=== PATIENT | female | born 1965 | race African-American/Black ===

== ENCOUNTER 2016-03-17 18:06 | Inpatient (IN) ==
--- NOTE | 2016-03-17 18:27 | EKG Report ---
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
[2016-03-17] MEDS ORDERED: hydrALAZINE 20 MG/1 ML VIAL IV STA (18:35)
[2016-03-17] MEDS ORDERED: hydrALAZINE 20 MG/1 ML VIAL ONE (18:37)
[2016-03-17 18:48] LABS: Basophils % 0.3 % (0.0-0.8); Eosinophils # 0.3 10*3/uL (0.0-0.87); Hematocrit 25.6 VOL% (35.7-47.0); Hemoglobin 7.8 GM/DL (12.0-16.0); Immature Granulocytes % 0.2 %; Immature Granulocytes Absolute 0.02 #; Lymphocytes # 1.3 10*3/uL (1.4-4.0); Lymphocytes % 14.8 % (21.3-54.2); Mean Corpuscular HGB Conc 30.5 GM/DL (32-36); Mean Corpuscular Hemoglobin 24 PG (27-34); Mean Platelet Volume 9.6 FL (9.6-12.0); Monocytes # 0.4 10*3/uL (0.11-0.8); Monocytes % 4.9 % (1.7-12.7); Neutrophils # 6.7 10*3/uL (1.4-7.4); Neutrophils % 76.8 % (38.7-73.9); Platelet Count 324 T/CUMM (130-400); White Blood Count 8.7 T/CUMM (4-12)
--- NOTE | 2016-03-17 18:56 | Emergency Department Note ---
I, Keila Barker, am scribing for, and in the presence of, Jenise Brown DO 18: 44. I, Jenise Brown DO, personally performed the services described in this documentation, ascribed by Keila Barker in my presence, and it is both accurate and complete [id number] . Arrival - Arrival Chief Complaint: Shortness of Breath Stated Complaint: SOB ED Nursing Triage Note: C/o productive cough, wheezing, shortness of breath- onset yesterday. Reports that she got some relief after taking an Albuterol neb. Reports chest "soreness". Mode of Arrival: Wheelchair Limitations: No Limitations Source: Patient Time Seen by Provider: 03/17/16 18:28 - History of Present Illness HPI Narrative: Pt is a 51 y/o female that came to the ED with c/o SOB that began a few weeks ago but has worsened today. Pt has associated sxs of abdominal tightness, cough with yellow mucus, and chest soreness but denies abdominal pain, fever, or chills. Pt reports she has asthma and feels like she's having an "asthma attack. " Pt states she does have albuterol treatments at home and she took one but felt no relief. She states she slept with her oxygen on last night to help but also no relief due to her sleep apnea. Pt has a PMHx of HTN and states she takes her medication but a PMHx of CHF is unknown. No other complaints/pain in ED. Onset (ago): week(s) Consistency: constant Severity: mild Severity scale (1-10): 2 Quality: other Date of Last Menstrual Period: hysterectomy Allergies/Adverse Reactions: Allergies Allergy/AdvReac Type Severity Reaction Status Date / Time Amoxicillin Allergy RASH Verified 08/20/15 18:34 ciprofloxacin [From Cipro] Allergy RASH Verified 08/20/15 18:34 Home Medications: Home Medications Medication Instructions Recorded Confirmed Type Pantoprazole Tab [Protonix Tab] 40 mg PO DAILY #14 tablet 08/07/14 03/17/16 Rx Levothyroxine Tab [Synthroid Tab] 75 mcg PO DAILY@0700 #30 tablet 08/19/1403/17 Rx Albuterol Sulfate [Ventolin HFA] 2 puff INH Q6H PRN 11/10/14 03/17/16 History Atorvastatin [Lipitor] 40 mg PO DAILY 08/20/15 03/17/16 History Furosemide Tab [Lasix Tab] 80 mg PO DAILY 08/20/15 03/17/16 History Insulin Glargine,Hum.rec.anlog 80 unit SUBCUT BEDTIME 08/20/15 03/17/16 History [Amina Lara] Potassium Chloride 8 meq PO DAILY 08/20/15 03/17/16 History Doxazosin Mesylate 1 mg PO BEDTIME 02/02/16 03/17/16 History Gabapentin [Gabapentin] 300 mg PO TID 02/02/16 03/17/16 History Insulin Aspart [NovoLOG FlexPen] 14 units SUBCUT TID W/MEALS 02/02/16 03/17/16 History Tramadol HCl [Tramadol Tab] 50 mg PO BID 02/02/16 03/17/16 History clonazePAM [Clonazepam] 0.5 mg PO BID 02/02/16 03/17/16 History hydrALAZINE TAB [Apresoline Tab] 100 mg PO TID #90 tablet 02/02/16 03/17/16 Rx Albuterol Sulfate [Albuterol Neb] 2.5 mg RESP TX TID 03/17/16 03/17/16 History Isosorbide Dinitrate 30 mg PO TID 03/17/16 03/17/16 History Nebivolol HCl [Bystolic] 20 mg PO DAILY 03/17/16 03/17/16 History Saxagliptin HCl [Onglyza] 2.5 mg PO DAILY 03/17/16 03/17/16 History cloNIDine TAB [Catapres Tab] 0.3 mg PO TID 03/17/16 03/17/16 History Review of System - Review of System 12 point system: reviewed and no additional remarkable complaints except as stated - Review of System Constitutional: Absent: chills, fever Respiratory: Present: cough (cough with yellow mucus), other (SOB) Cardiovascular: Present: other (chest soreness). Absent: chest pain Gastrointestinal: Present: other (abdominal tightness). Absent: abdominal pain Musculoskeletal: Absent: arm pain, back pain, leg pain, neck pain Skin: Absent: rash Neurological: Absent: headache Medical,Surgical,& Family Hx - Medical History Cardio: History of: CHF (with history of preserved ejection fraction), Hypertension Psychological: History of: Anxiety Disorders, Depression Neurology: No history of: Seizures Endocrine: History of: Diabetes Mellitus (IDDM), Dyslipidemia, Thyroid Disorder Respiratory: History of: Asthma, Bronchitis, Obstructive Sleep Apnea (wears cpap at home) Renal: History of: Renal Failure Genitourinary: History of: Recurring Urinary Tract Infections Gastrointestinal: History of: GERD Musculoskeletal: History of: Back/Neck Problems (arthitis), Degenerative Disk Disease Hematology: History of: Anemia - Surgical History Thoracic Surgeries: Patient denies;: Organ Transplant Abdominal Surgeries: Surgical HX of: EGD Patient denies: Colonoscopy Reproductive Surgeries: Surgical HX of;: Gynecologic Surgery, Hysterectomy, Tubal Ligation - Family History Family History: Reports;: Family Cancer (grandmother), Family Diabetes, Family Hypertension (mother, brother) - Social History Smoking Status: Former smoker Frequency of Alcohol Use: None Type of Drug Use: None Exam Vital Signs: Vital Signs Temperature 98.1 F 03/17/16 18:10 Pulse Rate 69 03/17/16 18:30 Respiratory Rate 20 03/17/16 18:30 Blood Pressure 228/96 03/17/16 18:30 O2 Sat by Pulse Oximetry 100 03/17/16 18:30 - General General appearance: alert, in no apparent distress, other (not able to get much air through; edentulist) - Head Head exam: Present: atraumatic, normocephalic - Eye Eye exam: Present: PERRL, EOMI - ENT ENT exam: Present: mucous membranes moist, other (erythematous throat with clear drainage). Absent: mucous membranes dry - Neck Neck exam: Present: full ROM. Absent: tenderness - Chest Chest inspection: Present: symmetric chest wall rise. Absent: tenderness - Respiratory Respiratory exam: Present: normal lung sounds bilaterally. Absent: respiratory distress - Cardiovascular Cardiovascular exam: Present: regular rate, normal rhythm, normal heart sounds - Abdominal Exam Abdominal exam: Present: soft, other (taunt abdomen). Absent: tenderness - Extremities Exam Extremities exam: Present: full ROM, pedal edema (+1 pedal edema). Absent: tenderness - Back Exam Back exam: Present: full ROM. Absent: tenderness - Neurological Exam Neurological exam: Present: alert, oriented X3, CN II-XII intact. Absent: motor sensory deficit - Psychiatric Psychiatric exam: Present: normal affect, normal mood - Skin Skin exam: Present: warm, dry Results - Labs CBC & BMP: 03/17/16 18:27 03/17/16 18:27 Lab Results: I have reviewed the patients labs Labs: Laboratory Tests 03/17/16 18:27 RBC 3.20 L Hgb 7.8 L Hct 25.6 L MCV 80.0 L MCH 24 L MCHC 30.5 L Neut % (Auto) 76.8 H Lymph % (Auto) 14.8 L Lymph # (Auto) 1.3 L Laboratory Tests 03/17/16 18:27 Sodium 148 H Chloride 112 H Anion Gap 16.5 H BUN 63 H Creatinine 4.50 H Glucose 115 H Calculated Osmolality 312.3 H Calcium 7.8 L Total Creatine Kinase 328 H Globulin 4.0 H Albumin/Globulin Ratio 0.8 L - Diagnostic Findings Procedure: Chest x-ray: report reviewed by me (Progressive cardiomegaly with [id number] CHF with small pleural effusions.)
--- NOTE | 2016-03-17 19:00 | XRay Report ---
Portable chest Date:[03/17/2016] Clinical history: Shortness of breath Comparison: 03/22/2015 Technique: Portable AP sitting chest Findings: The heart is larger in size with more prominent pulmonary vasculature. Progressive diffuse parenchymal findings with small pleural effusions. No acute osseous findings. Impression: Progressive cardiomegaly with [id number] CHF with small pleural effusions. PROCEDURE INTERPRETED AT [facility] DEPARTMENT OF RADIOLOGY Final Report Signed by: Dr. Rosa Isela Zabala
[2016-03-17 19:16] LABS: Alanine Aminotransferase 20 U/L (13-56); Albumin 3.4 G/DL (3.4-5.0); Alkaline Phosphatase 74 U/L (45-117); Aspartate Amino Transferase 13 U/L (0-37); Bilirubin,Total < 0.39 MG/DL (0.2-1.0); Blood Urea Nitrogen 63 MG/DL (7-18); Calcium 7.8 MG/DL (8.5-10.1); Glucose 115 MG/DL (74-106); Osmolality,Calculated 312.3 MOS/KG (273-304); Potassium 4.5 MMOL/L (3.5-5.1); Sodium 148 MMOL/L (136-145); Total Protein 7.4 G/DL (6.4-8.3); Troponin I Only < 0.015 NG/ML (0.00-0.045)
[2016-03-17] MEDS ORDERED: FUROSEMIDE 40 MG/4 ML VIAL IV STA (19:39)
[2016-03-17] MEDS ORDERED: FUROSEMIDE 40 MG/4 ML VIAL ONE (19:41)
[2016-03-17] MEDS ORDERED: ONDANSETRON 4 MG/2 ML VIAL ONE (19:49)
[2016-03-17] MEDS ORDERED: ONDANSETRON 4 MG/2 ML VIAL IV STA (19:57)
[2016-03-17] MEDS ORDERED: clonazePAM 0.5 MG TABLET PO PRN (20:44)
[2016-03-17] MEDS ORDERED: traMADol 50 MG TABLET PO PRN (20:44)
[2016-03-17] MEDS ORDERED: ALBUTEROL/IPRATROPIUM 3 ML NEB RESP TX PRN (20:48)
[2016-03-17] MEDS ORDERED: ONDANSETRON 4 MG/2 ML VIAL IV PRN (20:49)
[2016-03-17] MEDS ORDERED: MORPHINE 2 MG/1 ML SYRINGE IV PRN (20:49)
[2016-03-17] MEDS ORDERED: DEXTROSE 50% 25 GM/50 ML VIAL IV PRN (20:49)
[2016-03-17] MEDS ORDERED: ACETAMINOPHEN 325 MG TABLET PO PRN (20:49)
[2016-03-17] MEDS ORDERED: BISACODYL 5 MG TABLET PO PRN (20:49)
[2016-03-17] MEDS ORDERED: GLUCAGON 1 MG VIAL IM PRN (20:49)
[2016-03-17] MEDS ORDERED: SODIUM CHLORIDE 0.9% 250 ML IV PRN (20:52)
--- NOTE | 2016-03-17 20:59 | Hospitalist History & Physical ---
Assessment and Plan (1) Hypertensive urgency Status: Acute Current Visit: Yes (2) Acute on chronic diastolic CHF (congestive heart failure) Status: Acute Current Visit: Yes (3) Anemia in chronic kidney disease Status: Acute Current Visit: Yes (4) Insulin dependent diabetes mellitus Status: Acute Current Visit: Yes (5) Pulmonary edema Status: Acute Current Visit: Yes (6) Acute worsening of stage 3 chronic kidney disease Status: Acute Current Visit: Yes (7) Obstructive sleep apnea on CPAP Status: Acute Assessment and plan: Plan: 03/17: Blood pressure control and diuresis Transfuse 2 units packed red blood cells, diuresis between units DuoNeb's, supplemental oxygen, CPAP at bedtime Cardiac enzymes negative, no acute ischemic EKG changes Consult nephrology in a.m. Continue Lantus, mealtime insulin and sliding scale. Repeat chest x-ray in a.m. Current Visit: Yes History of Present Illness Chief complaint: worsening shortness of breath since yesterday History of present illness: Ms. Mejia is a 51 year old female with obesity, insulin-dependent diabetes, chronic diastolic CHF, uncontrolled hypertension, chronic kidney disease stage III, obstructive sleep apnea. She is here with shortness of breath that became worse yesterday morning has progressively worsened today prompting her to come the emergency room. She denies chest pain. She reports occasional cough. No hemoptysis. Blood pressure was approximately 220/110 presentation to the emergency room. She will denies noncompliance with her medications. She is also found to be anemic, however denies any melena or hematochezia or hematemesis. At the bedside she becomes easily short of breath with minimal movement however she is not wearing her oxygen but sats are in the mid 90s. She 's noticed increased peripheral edema despite taking her oral diuretic. She is followed by Dr. Alexander, her lens engraver whom she states she saw within the last "couple of weeks." Home Medications Medication Instructions Recorded Confirmed Type Pantoprazole Tab [Protonix Tab] 40 mg PO DAILY #14 tablet 08/07/14 03/17/16 Rx Levothyroxine Tab [Synthroid Tab] 75 mcg PO DAILY@0700 #30 tablet 08/19/1403/17 Rx Albuterol Sulfate [Ventolin HFA] 2 puff INH Q6H PRN 11/10/14 03/17/16 History Atorvastatin [Lipitor] 40 mg PO DAILY 08/20/15 03/17/16 History Furosemide Tab [Lasix Tab] 80 mg PO DAILY 08/20/15 03/17/16 History Insulin Glargine,Hum.rec.anlog 80 unit SUBCUT BEDTIME 08/20/15 03/17/16 History [Tousavage SoloStar] Potassium Chloride 8 meq PO DAILY 08/20/15 03/17/16 History Doxazosin Mesylate 1 mg PO BEDTIME 02/02/16 03/17/16 History Gabapentin [Gabapentin] 300 mg PO TID 02/02/16 03/17/16 History Insulin Aspart [NovoLOG FlexPen] 14 units SUBCUT TID W/MEALS 02/02/16 03/17/16 History Tramadol HCl [Tramadol Tab] 50 mg PO BID 02/02/16 03/17/16 History clonazePAM [Clonazepam] 0.5 mg PO BID 02/02/16 03/17/16 History hydrALAZINE TAB [Apresoline Tab] 100 mg PO TID #90 tablet 02/02/16 03/17/16 Rx Albuterol Sulfate [Albuterol Neb] 2.5 mg RESP TX TID 03/17/16 03/17/16 History Isosorbide Dinitrate 30 mg PO TID 03/17/16 03/17/16 History Nebivolol HCl [Bystolic] 20 mg PO DAILY 03/17/16 03/17/16 History Saxagliptin HCl [Onglyza] 2.5 mg PO DAILY 03/17/16 03/17/16 History cloNIDine TAB [Catapres Tab] 0.3 mg PO TID 03/17/16 03/17/16 History Allergies Allergy/AdvReac Type Severity Reaction Status Date / Time Amoxicillin Allergy RASH Verified 08/20/15 18:34 ciprofloxacin [From Cipro] Allergy RASH Verified 08/20/15 18:34 Medical,Surgical,& Family Hx - Medical History Cardio: History of: CHF (with history of preserved ejection fraction), Hypertension Psychological: History of: Anxiety Disorders, Depression Neurology: No history of: Seizures Endocrine: History of: Diabetes Mellitus (IDDM), Dyslipidemia, Thyroid Disorder Respiratory: History of: Asthma, Bronchitis, Obstructive Sleep Apnea (wears cpap at home) Renal: History of: Renal Failure Genitourinary: History of: Recurring Urinary Tract Infections Gastrointestinal: History of: GERD Musculoskeletal: History of: Back/Neck Problems (arthitis), Degenerative Disk Disease Hematology: History of: Anemia - Surgical History Thoracic Surgeries: Patient denies;: Organ Transplant Abdominal Surgeries: Surgical HX of: EGD Patient denies: Colonoscopy Reproductive Surgeries: Surgical HX of;: Gynecologic Surgery, Hysterectomy, Tubal Ligation - Family History Family History: Reports;: Family Cancer (grandmother), Family Diabetes, Family Hypertension (mother, brother) - Social History Smoking Status: Former smoker Frequency of Alcohol Use: None Type of Drug Use: None Marital Status: Unknown Functional capacity: independent ambulation Review of systems: A 12 point review of systems is negative except as specified in the HPI Exam - Constitutional Vitals: Period Temp Pulse Resp BP Sys/Loving Pulse Ox Last 24 Hr 98.1 F-98.1 F 67-70 20-20 194-228/73-102 96-100 Exam: EXAM: CONSTITUTIONAL: Obese, non toxic, NAD HEENT: NC, AT, OP benign, [place], EOMI CV: RRR no m/g/r RESP: Coarse bilaterally with scattered rales GI: abd soft, NT, ND, +bowel sounds INTEGUMENTARY: no lesions or rash EXTREMITIES: 2+ pitting edema bilateral lower extremities NEURO: no focal deficits PSYCH: Awake and alert Results - Labs CBC & BMP: 03/17/16 18:27 03/17/16 18:27 Lab Results: I have reviewed the past 24 hour labs - EKG EKG shows: sinus rhythm - Diagnostic Findings Procedure: Chest x-ray: image reviewed by me, report reviewed by me Quality Measures - VTE Contraindication to Pharmacological VTE Prophylaxis: High Risk of Bleeding
[2016-03-17] MEDS ORDERED: FUROSEMIDE 40 MG/4 ML VIAL IV ONE (21:00)
[2016-03-17] MEDS: ISOSORBIDE DINITRATE 20 MG TABLET PO SCH (23:00)
[2016-03-17] MEDS: GABAPENTIN 300 MG CAPSULE PO SCH (23:00)
[2016-03-17] MEDS: DOXAZOSIN 1 MG TABLET PO SCH (23:01)
[2016-03-17] MEDS: INSULIN GLARGINE 100 UNIT/ML SUBCUT SCH (23:02)
[2016-03-18] MEDS ORDERED: FUROSEMIDE 40 MG/4 ML VIAL IV ONE (03:30)
[2016-03-18 08:19] LABS: Basophils # 0.1 10*3/uL (0.0-0.2); Basophils % 0.6 % (0.0-0.8); Eosinophils # 0.2 10*3/uL (0.0-0.87); Eosinophils % 2.1 % (0.00-10.9); Hematocrit 30.5 VOL% (35.7-47.0); Hemoglobin 9.2 GM/DL (12.0-16.0); Immature Granulocytes % 0.4 %; Immature Granulocytes Absolute 0.03 #; Lymphocytes # 0.8 10*3/uL (1.4-4.0); Lymphocytes % 9.6 % (21.3-54.2); Mean Corpuscular HGB Conc 30.2 GM/DL (32-36); Mean Corpuscular Hemoglobin 25 PG (27-34); Mean Corpuscular Volume 82.9 FL (87-102); Mean Platelet Volume 9.2 FL (9.6-12.0); Monocytes # 0.5 10*3/uL (0.11-0.8); Monocytes % 6.1 % (1.7-12.7); Neutrophils # 6.5 10*3/uL (1.4-7.4); Neutrophils % 81.2 % (38.7-73.9); Platelet Count 291 T/CUMM (130-400); Red Blood Count 3.68 MC/CUMM (3.8-5.5); Red Cell Distribution Width 16.3 % (9.3-17.3)
--- NOTE | 2016-03-18 09:28 | XRay Report ---
Portable chest Date:[03/18/2016] Clinical history: Shortness of breath Comparison: 03/17/2016 Technique: Portable AP sitting chest Findings: The heart is minimally enlarged with less prominent pulmonary vasculature. Decreased parenchymal findings with minimally smaller pleural effusions. Stable mediastinum and osseous structures. Impression: Improved CHF/bilateral pneumonia with smaller pleural effusions. PROCEDURE INTERPRETED AT [facility] DEPARTMENT OF RADIOLOGY Final Report Signed by: Dr. Rosa Isela Zabala
[2016-03-18] MEDS: FUROSEMIDE 40 MG/4 ML VIAL IV SCH (09:32)
[2016-03-18 09:33] LABS: Calcium 8.2 MG/DL (8.5-10.1); Osmolality,Calculated 313.3 MOS/KG (273-304); Potassium 4.8 MMOL/L (3.5-5.1)
[2016-03-18] MEDS: INSULIN REGULAR 100 UNIT/ML SUBCUT SCH ×5 (09:37→21:51)
[2016-03-18] MEDS: PANTOPRAZOLE 40 MG TABLET PO SCH (09:38)
[2016-03-18] MEDS: NEBIVOLOL 10 MG TABLET PO SCH (09:39)
[2016-03-18] MEDS: ISOSORBIDE DINITRATE 20 MG TABLET PO SCH ×3 (09:40→21:52)
[2016-03-18] MEDS: LEVOTHYROXINE 75 MCG TABLET PO SCH (09:40)
[2016-03-18] MEDS: ATORVASTATIN 40 MG TABLET PO SCH (09:43)
[2016-03-18] MEDS: GABAPENTIN 300 MG CAPSULE PO SCH ×3 (09:45→21:52)
--- NOTE | 2016-03-18 10:38 | Nephrology Consult Note ---
History of Present Illness Chief complaint: chronic renal failure History of present illness: Ms. Mejia is a 51 year old female with chronic renal failure secondary to diabetes. She was admitted with uncontrolled hypertension and shortness of breath. She has received diuretics and her breathing has improved. She is now comfortable on room air. Blood pressure is markedly improved as well. Home Medications Medication Instructions Recorded Confirmed Type Pantoprazole Tab [Protonix Tab] 40 mg PO DAILY #14 tablet 08/07/14 03/17/16 Rx Levothyroxine Tab [Synthroid Tab] 75 mcg PO DAILY@0700 #30 tablet 08/19/1403/17 Rx Albuterol Sulfate [Ventolin HFA] 2 puff INH Q6H PRN 11/10/14 03/17/16 History Atorvastatin [Lipitor] 40 mg PO DAILY 08/20/15 03/17/16 History Furosemide Tab [Lasix Tab] 80 mg PO DAILY 08/20/15 03/17/16 History Insulin Glargine,Hum.rec.anlog 80 unit SUBCUT BEDTIME 08/20/15 03/17/16 History [Tousavage SoloStar] Potassium Chloride 8 meq PO DAILY 08/20/15 03/17/16 History Doxazosin Mesylate 1 mg PO BEDTIME 02/02/16 03/17/16 History Gabapentin [Gabapentin] 300 mg PO TID 02/02/16 03/17/16 History Insulin Aspart [NovoLOG FlexPen] 10 units SUBCUT TID W/MEALS 02/02/16 03/17/16 History Tramadol HCl [Tramadol Tab] 50 mg PO BID 02/02/16 03/17/16 History clonazePAM [Clonazepam] 0.5 mg PO BID 02/02/16 03/17/16 History hydrALAZINE TAB [Apresoline Tab] 100 mg PO TID #90 tablet 02/02/16 03/17/16 Rx Albuterol Sulfate [Albuterol Neb] 2.5 mg RESP TX TID 03/17/16 03/17/16 History Isosorbide Dinitrate 30 mg PO TID 03/17/16 03/17/16 History Nebivolol HCl [Bystolic] 20 mg PO DAILY 03/17/16 03/17/16 History Saxagliptin HCl [Onglyza] 2.5 mg PO DAILY 03/17/16 03/17/16 History cloNIDine TAB [Catapres Tab] 0.3 mg PO TID 03/17/16 03/17/16 History Allergies Allergy/AdvReac Type Severity Reaction Status Date / Time Amoxicillin Allergy RASH Verified 08/20/15 18:34 ciprofloxacin [From Cipro] Allergy RASH Verified 08/20/15 18:34 Medical,Surgical,& Family Hx - Medical History Cardio: History of: CHF (with history of preserved ejection fraction), Hypertension Psychological: History of: Anxiety Disorders, Depression Neurology: No history of: Seizures Endocrine: History of: Diabetes Mellitus (IDDM), Dyslipidemia, Thyroid Disorder Respiratory: History of: Asthma, Bronchitis, Obstructive Sleep Apnea (wears cpap at home) Renal: History of: Renal Failure Genitourinary: History of: Recurring Urinary Tract Infections Gastrointestinal: History of: GERD Musculoskeletal: History of: Back/Neck Problems (arthitis), Degenerative Disk Disease Hematology: History of: Anemia - Surgical History Thoracic Surgeries: Patient denies;: Organ Transplant Abdominal Surgeries: Surgical HX of: EGD Patient denies: Colonoscopy Reproductive Surgeries: Surgical HX of;: Gynecologic Surgery, Hysterectomy, Tubal Ligation - Family History Family History: Reports;: Family Cancer (grandmother), Family Diabetes, Family Hypertension (mother, brother) - Social History Smoking Status: Former smoker Frequency of Alcohol Use: None Type of Drug Use: None Review of Systems 12 point system: reviewed and no additional remarkable complaints except as stated Exam - Vital Signs Vital signs: Period Temp Pulse Resp BP Sys/Loving Pulse Ox Last 24 Hr 97.1 F-98.5 F 63-70 20-20 136-165/53-77 65-100 Exam: Gen.: Alert and oriented x3. ENT: Pupils equal round reactive to light. EOMs intact. Mucous membranes moist. Neck: Supple. No JVD or bruit. Cardiovascular: Regular rate and rhythm. No murmur rub or gallop Lungs: Clear Abdomen: Soft. Nontender. Positive bowel sounds. No organomegaly Extremities: 1+ edema Results - Labs CBC & BMP: 03/18/16 08:10 03/18/16 08:10 Assessment and Plan (1) Chronic kidney disease, stage IV (severe) Status: Acute Assessment and plan: 51-year-old woman admitted with: * Chronic renal failure stage IV. Creatinine 3.9 in August 2015. Likely worsened by severe hypertension * Hypertension. Blood pressure is now controlled. Suspect noncompliance with medications * Diabetes mellitus * CHF. Improved Current Visit: Yes (2) Acute on chronic diastolic CHF (congestive heart failure) Status: Acute Current Visit: Yes (3) Insulin dependent diabetes mellitus Status: Acute Current Visit: Yes (4) Obstructive sleep apnea on CPAP Status: Acute Current Visit: Yes (5) Pulmonary edema Status: Acute Current Visit: Yes (6) hypertension Status: Acute Current Visit: No
--- NOTE | 2016-03-18 15:52 | Hospitalist Progress Note ---
Assessment and Plan (1) Hypertensive urgency Status: Resolved Current Visit: Yes (2) Acute on chronic diastolic CHF (congestive heart failure) Status: Acute Current Visit: Yes (3) Anemia in chronic kidney disease Status: Acute Current Visit: Yes (4) Insulin dependent diabetes mellitus Status: Acute Current Visit: Yes (5) Pulmonary edema Status: Acute Current Visit: Yes (6) Acute worsening of stage 4 chronic kidney disease Status: Acute Current Visit: Yes (7) Obstructive sleep apnea on CPAP Status: Acute Assessment and plan: Plan: 03/17: Blood pressure control and diuresis Transfuse 2 units packed red blood cells, diuresis between units DuoNeb's, supplemental oxygen, CPAP at bedtime Cardiac enzymes negative, no acute ischemic EKG changes Consult nephrology in a.m. Continue Lantus, mealtime insulin and sliding scale. Repeat chest x-ray in a.m. 03/18: Blood pressure is better controlled. Blood counts with appropriate rise status post 2 units packed red cell transfusion. Nephrology following, diabetic medications have been adjusted. Otherwise supportive care. If renal function improves and blood counts remain stable and consider discharging the next 24-48 hours. Current Visit: Yes Hospitalist: Subjective Interval history: Ms. Mejia has no acute complaints. She reports much improved shortness of breath. No oxygen requirement. She insists that she's been taking her blood pressure medication as prescribed. Regarding her blood pressure all we really have done is continued her home medications, which seems to be controlling her blood pressure quite well. This does make the doubt compliance. She has no complaints at this time. Exam - Constitutional Vitals: Period Temp Pulse Resp BP Sys/Loving Pulse Ox Last 24 Hr 97.1 F-98.5 F 63-70 20-20 136-165/53-77 65-100 Exam: EXAM: CONSTITUTIONAL: Obese, non toxic, NAD HEENT: NC, AT, OP benign, [place], EOMI CV: RRR no m/g/r RESP: Coarse bilaterally with bibasilar rales GI: abd soft, NT, ND, +bowel sounds INTEGUMENTARY: no lesions or rash EXTREMITIES: Trace edema of the lower extremities NEURO: no focal deficits PSYCH: Awake and alert Results - Labs CBC & BMP: 03/18/16 08:10 03/18/16 08:10 Lab Results: I have reviewed the past 24 hour labs - Diagnostic Findings Procedure: Chest x-ray: image reviewed by me, report reviewed by me Quality Measures - VTE Contraindication to Pharmacological VTE Prophylaxis: High Risk of Bleeding
[2016-03-18] MEDS ORDERED: clonazePAM 0.5 MG TABLET PO PRN (15:53)
[2016-03-18] MEDS: POLYETHYLENE GLYCOL POWDER 17 GM PACK PO SCH (17:38)
[2016-03-18] MEDS: DOXAZOSIN 1 MG TABLET PO SCH (21:52)
[2016-03-18] MEDS: INSULIN GLARGINE 100 UNIT/ML SUBCUT SCH (21:54)
[2016-03-19 06:40] LABS: Basophils % 0.5 % (0.0-0.8); Eosinophils # 0.2 10*3/uL (0.0-0.87); Eosinophils % 2.7 % (0.00-10.9); Hemoglobin 8.8 GM/DL (12.0-16.0); Immature Granulocytes % 0.4 %; Immature Granulocytes Absolute 0.03 #; Lymphocytes % 12.7 % (21.3-54.2); Mean Corpuscular HGB Conc 31.4 GM/DL (32-36); Mean Corpuscular Hemoglobin 25 PG (27-34); Mean Corpuscular Volume 80.9 FL (87-102); Monocytes # 0.6 10*3/uL (0.11-0.8); Monocytes % 7.7 % (1.7-12.7); Neutrophils # 5.9 10*3/uL (1.4-7.4); Platelet Count 299 T/CUMM (130-400); Red Blood Count 3.46 MC/CUMM (3.8-5.5); Red Cell Distribution Width 16.3 % (9.3-17.3); White Blood Count 7.8 T/CUMM (4-12)
[2016-03-19 07:04] LABS: Calcium 7.7 MG/DL (8.5-10.1); Osmolality,Calculated 311.8 MOS/KG (273-304); Potassium 4.9 MMOL/L (3.5-5.1)
[2016-03-19] MEDS: ATORVASTATIN 40 MG TABLET PO SCH (08:49)
[2016-03-19] MEDS: POLYETHYLENE GLYCOL POWDER 17 GM PACK PO SCH (08:49)
[2016-03-19] MEDS: LEVOTHYROXINE 75 MCG TABLET PO SCH (08:49)
[2016-03-19] MEDS: NEBIVOLOL 10 MG TABLET PO SCH (08:50)
[2016-03-19] MEDS: PANTOPRAZOLE 40 MG TABLET PO SCH (08:50)
[2016-03-19] MEDS: GABAPENTIN 300 MG CAPSULE PO SCH (08:50)
[2016-03-19] MEDS: INSULIN REGULAR 100 UNIT/ML SUBCUT SCH ×2 (08:50→11:33)
[2016-03-19] MEDS: ISOSORBIDE DINITRATE 20 MG TABLET PO SCH (08:50)
[2016-03-19] MEDS: FUROSEMIDE 40 MG/4 ML VIAL IV SCH (08:51)
[2016-03-19] MEDS ORDERED: sitaGLIPtin 25 MG TABLET PO SCH (09:00)
[2016-03-19] MEDS: INSULIN LISPRO 100 UNIT/ML SUBCUT SCH ×2 (09:32→09:33)
[2016-03-19 13:27] VITALS: BP 148/68
--- NOTE | 2016-03-19 14:59 | Discharge Summary ---
Hospital Course - Hospital Course Hospital Course: Ms. Mejia was admitted with hypertensive urgency, acute on chronic diastolic CHF with pulmonary edema. I suspect she was not compliant with her blood pressure medications, the reason being recently restarted her home meds with excellent result. She responded well to IV diuresis, is now back on her oral Lasix. Additionally she was transfused 2 units packed red blood cells, no evidence of GI/ bleeding. Her blood counts responded appropriately. There' ve been stable since transfusion. I recommended that she follow-up with her primary care provider and/or adjunct philosophy faculty to recheck a basic chemistry to ensure continued stability of her chronic kidney disease stage IV. I explained that nonadherence to blood pressure medications and diabetic medications lead to worsening of kidney function. She acknowledged her understanding. She is eager to go home, she states she has a sufficient supply of all of her medications and will be discharged today. - Time spent with patient Time with patient DS: Greater than 30 minutes Diagnosis - Discharge Diagnosis (1) Hypertensive urgency Status: Resolved (2) Acute on chronic diastolic CHF (congestive heart failure) Status: Resolved (3) Anemia in chronic kidney disease Status: Acute (4) Insulin dependent diabetes mellitus Status: Acute (5) Pulmonary edema Status: Acute (6) Acute worsening of stage 4 chronic kidney disease Status: Acute (7) Obstructive sleep apnea on CPAP Status: Acute Specialty Discharge - Follow Up or Referrals - Speciality Discharge Instructions Hospitalist Instructions: Follow-up with PCP, adjunct philosophy faculty within the week for repeat chemistry to ensure renal function is stable, also blood pressure is acceptable. Discharge Plan - Discharge Data Disposition: Disch To Home/Self Care Condition at Discharge: Stable - Discharge Medications New clonazePAM TAB [KlonoPIN] 0.25 mg PO BID PRN #0 tablet PRN Reason: Anxiety Continue Pantoprazole Tab [Protonix Tab] 40 mg PO DAILY #14 tablet Levothyroxine Tab [Synthroid Tab] 75 mcg PO DAILY@0700 #30 tablet Albuterol Sulfate [Ventolin HFA] 2 puff INH Q6H PRN PRN Reason: Shortness Of Breath/Wheezing Atorvastatin [Lipitor] 40 mg PO DAILY Potassium Chloride 8 meq PO DAILY Furosemide Tab [Lasix Tab] 80 mg PO DAILY Insulin Glargine,Hum.rec.anlog [Amina Lara] 80 unit SUBCUT BEDTIME Isosorbide Dinitrate 30 mg PO TID Nebivolol HCl [Bystolic] 20 mg PO DAILY Doxazosin Mesylate 1 mg PO BEDTIME Gabapentin 300 mg PO TID Insulin Aspart [NovoLOG FlexPen] 10 units SUBCUT TID W/MEALS Tramadol HCl [Tramadol Tab] 50 mg PO BID hydrALAZINE TAB [Apresoline Tab] 100 mg PO TID #90 tablet cloNIDine TAB [Catapres Tab] 0.3 mg PO TID Saxagliptin HCl [Onglyza] 2.5 mg PO DAILY Albuterol Sulfate [Albuterol Neb] 2.5 mg RESP TX TID Discontinued clonazePAM [Clonazepam] 0.5 mg PO BID - Follow Up or Referral - Forms/Instructions Exam - Constitutional Vitals: Period Temp Pulse Resp BP Sys/Loving Pulse Ox Last 24 Hr 97.9 F-98.5 F 60-78 20-78 136-169/59-83 93-98 Exam: EXAM: CONSTITUTIONAL: Obese, non toxic, NAD HEENT: [place], AT, OP benign, [place], EOMI CV: RRR no m/g/r RESP: Scant bibasilar rales GI: abd soft, NT, ND, +bowel sounds INTEGUMENTARY: no lesions or rash EXTREMITIES: Bilateral lower extremity edema resolved NEURO: no focal deficits PSYCH: Awake and alert Discharge Results Procedures and tests throughout hospitalization: Pending Orders 03/17/16 20:53 Occult Blood, Stool Stat Labs on day of discharge: Labs from last 24 hours 03/19/16 03/19/16 03/19/16 11:05 07:41 05:18 WBC RBC Hgb Hct MCV MCH MCHC RDW Plt Count MPV Neut % (Auto) Lymph % (Auto) [place] % (Auto) Eos % (Auto) Baso % (Auto) Neut # (Auto) Lymph # (Auto) [place] # (Auto) Eos # (Auto) Baso # (Auto) Immature Gran % Nucleated RBC % Immature Gran # Nucleated RBCs # Sodium 144 Potassium 4.9 Chloride 108 H Carbon Dioxide 24 Anion Gap 16.9 H BUN 69 H Creatinine 5.00 H GFR Calculation 15 BUN/Creatinine Ratio 13.00 Glucose 214 H POC Glucose 227 H 200 H Hemoglobin A1c Calculated Osmolality 311.8 H Calcium 7.7 L 03/19/16 03/19/16 03/18/16 05:18 05:18 21:16 WBC 7.8 RBC 3.46 L Hgb 8.8 L Hct 28.0 L MCV 80.9 L MCH 25 L MCHC 31.4 L RDW 16.3 Plt Count 299 MPV 10.0 Neut % (Auto) 76.0 H Lymph % (Auto) 12.7 L [place] % (Auto) 7.7 Eos % (Auto) 2.7 Baso % (Auto) 0.5 Neut # (Auto) 5.9 Lymph # (Auto) 1.0 L [place] # (Auto) 0.6 Eos # (Auto) 0.2 Baso # (Auto) 0.0 Immature Gran % 0.4 Nucleated RBC % 0.0 Immature Gran # 0.03 Nucleated RBCs # 0.00 Sodium Potassium Chloride Carbon Dioxide Anion Gap BUN Creatinine GFR Calculation BUN/Creatinine Ratio Glucose POC Glucose 253 H Hemoglobin A1c 8.6 H Calculated Osmolality Calcium 03/18/16 15:45 WBC RBC Hgb Hct MCV MCH MCHC RDW Plt Count MPV Neut % (Auto) Lymph % (Auto) [place] % (Auto) Eos % (Auto) Baso % (Auto) Neut # (Auto) Lymph # (Auto) [place] # (Auto) Eos # (Auto) Baso # (Auto) Immature Gran % Nucleated RBC % Immature Gran # Nucleated RBCs # Sodium Potassium Chloride Carbon Dioxide Anion Gap BUN Creatinine GFR Calculation BUN/Creatinine Ratio Glucose POC Glucose 247 H Hemoglobin A1c Calculated Osmolality Calcium DS: Provider Date of admission: 03/17/16 20:49 Primary care physician: . No PCP Attending physician on admission: Joseluis Pickard DO Consults: 03/17/16 22:21 Consult to Pharmacy [CONS] Routine Reason for Pharmacy Consult: Adjust Meds Renal Funct Discharging clinician: Joseluis Pickard DO Expected date of discharge: 03/19/16
[2016-03-19] MEDS ORDERED: INSULIN GLARGINE 100 UNIT/ML SUBCUT SCH (21:00)
[2016-03-20] MEDS ORDERED: FUROSEMIDE 80 MG TABLET PO SCH (09:00)
== END 2016-03-19 15:54 | disposition home or self-care (01) | DRG 291 ==
LOC: N.ED 18:06 → N.EDINP 20:49 → N.2E 21:34
PROVIDERS: ADMIT Internal Medicine; ATTEND Internal Medicine

== ENCOUNTER 2016-03-30 06:11 | Inpatient (IN) ==
[2016-03-30] MEDS ORDERED: ASPIRIN 325 MG TABLET PO STA (06:39)
--- NOTE | 2016-03-30 06:42 | EKG Report ---
Stationary ECG Study [facility] ER Test Date: 03/30/2016 6:27:49 AM Pat Name: ESMER SLAUGHTER Department: Room: 530 Gender: F Social Work Specialist: : [id number] Requested by: Robin Lechuga Order Number: [id number] Reading MD: EZEQUIEL LAKHANI Intervals [place] Rate: 66 P: 55 LA: 168 QRS: -44 QRSD: 106 T: 114 QT: 454 QTc: 468 Interpretive Statements SINUS RHYTHM MARKED LEFT AXIS DEVIATION LEFT VENTRICULAR HYPERTROPHY AND ST-T CHANGE POSSIBLE ANTERIOR MYOCARDIAL INFARCTION, PREVIOUSLY CITED Electronically Signed On 04-03-16 05:52:29 JAVA PORTAL DEVELOPER by EZEQUIEL LAKHANI [email or web address]
[2016-03-30] MEDS ORDERED: ASPIRIN 325 MG TABLET ONE (06:44)
[2016-03-30 06:47] LABS: Basophils # 0.1 10*3/uL (0.0-0.2); Basophils % 0.6 % (0.0-0.8); Eosinophils # 0.2 10*3/uL (0.0-0.87); Eosinophils % 2.5 % (0.00-10.9); Hematocrit 32.1 VOL% (35.7-47.0); Immature Granulocytes % 0.2 %; Immature Granulocytes Absolute 0.02 #; Lymphocytes # 1.2 10*3/uL (1.4-4.0); Mean Corpuscular HGB Conc 31.2 GM/DL (32-36); Mean Corpuscular Hemoglobin 25 PG (27-34); Mean Corpuscular Volume 81.5 FL (87-102); Mean Platelet Volume 10.2 FL (9.6-12.0); Monocytes # 0.6 10*3/uL (0.11-0.8); Monocytes % 6.9 % (1.7-12.7); Neutrophils # 6.4 10*3/uL (1.4-7.4); Neutrophils % 75.8 % (38.7-73.9); Platelet Count 280 T/CUMM (130-400); Red Blood Count 3.94 MC/CUMM (3.8-5.5); Red Cell Distribution Width 15.9 % (9.3-17.3); White Blood Count 8.4 T/CUMM (4-12)
[2016-03-30 07:03] LABS: Apearance,Urine CLEAR (Clear); Bilirubin,Urine Negative (Negative); Blood, Urine Small mg/dL (Negative); Glucose,Urine (UA) 50 mg/dL (Negative); Ketones,Urine Negative (Negative); Nitrite,Urine Negative (Negative); Protein,Urine 100 MG/DL; RBC,Urine 6 /HPF (0-4); Urine Color Straw (Yellow); Urine Specific Gravity 1.006 (1.001-1.035); Urine Urobilinogen < 2.0 EU/DL (0.2-1.0); WBC,Urine 1 /HPF (0-6)
[2016-03-30 07:07] LABS: Alanine Aminotransferase 21 U/L (13-56); Albumin 3.5 G/DL (3.4-5.0); Alkaline Phosphatase 73 U/L (45-117); Aspartate Amino Transferase 12 U/L (0-37); Bilirubin,Total < 0.39 MG/DL (0.2-1.0); Blood Urea Nitrogen 58 MG/DL (7-18); Calcium 8.5 MG/DL (8.5-10.1); Glucose 174 MG/DL (74-106); Magnesium 2.3 MG/DL (1.8-2.4); Osmolality,Calculated 305.8 MOS/KG (273-304); Potassium 4.8 MMOL/L (3.5-5.1); Sodium 144 MMOL/L (136-145); Total Protein 7.5 G/DL (6.4-8.3)
--- NOTE | 2016-03-30 07:38 | XRay Report ---
XR chest 1V portable Indication: Chest pain. Comparison: Chest x-ray 03/24/2016 Technique: Portable AP chest was performed. Findings: AP chest is somewhat underpenetrated. The thoracic vertebral bodies are not well-visualized. Borderline to mild cardiomegaly appears stable. Trace fluid in the minor fissure is noted. Lungs demonstrate suggestive beam attenuation within the lower chest secondary to anterior chest wall soft tissues. Lungs otherwise are clear for technique and degree of inspiration. Bones and soft tissues demonstrate no significant abnormalities. Impression: 1. Trace amount of fluid within the minor fissure is noted. 2. Borderline to mild cardiomegaly. 03/30/2016 7:35 AM PROCEDURE INTERPRETED AT [facility] DEPARTMENT OF RADIOLOGY Final Report Signed by: Dr. Graeme Shore
--- NOTE | 2016-03-30 07:38 | Ultrasound Report ---
US gallbladder Indication: Nausea. Abdominal pain. Comparison: None. Technique: Using transcutaneous probe, ultrasound imaging of the right upper quadrant was performed. Ultrasound images were captured and stored. Imaged structures include the liver, gallbladder, pancreas, right kidney, aorta, and inferior vena cava. Findings: A small portion of the pancreatic head is demonstrated. There is no enlargement of the pancreatic head and no specific evidence of pancreatic ductal enlargement. Small amount peripancreatic fluid along the anterior margin of the pancreas is not entirely excluded. Liver is not well-visualized. Liver measures approximately 17.5 cm in craniocaudal dimension as measured in the mid hepatic line. Echotexture of the hepatic parenchyma appears isoechoic to the right renal cortex. No hepatic masses are present on the submitted images of the liver. Color flow is noted within the interrogated portal venous segments. Common bile duct measures 4.1 mm, within normal limits. Gallbladder demonstrates no significant abnormality. The right kidney measures 11 cm and is otherwise unremarkable. Aorta and inferior vena cava are not included on this study secondary to bowel gas. Impression: 1. Poorly visualized pancreas is noted. Curvilinear hypoattenuation adjacent to anterior margin could reflect a small amount of peripancreatic fluid. Correlation is lipase is recommended to exclude acute pancreatitis. 2. Otherwise no acute findings are suggested on submitted images. 03/30/2016 7:32 AM PROCEDURE INTERPRETED AT [facility] DEPARTMENT OF RADIOLOGY Final Report Signed by: Dr. Graeme Shore
--- NOTE | 2016-03-30 10:43 | Nuclear Medicine Report ---
NM hepatobiliary Indication: Abdominal pain. Comparison: None. Technique: Following intravenous administration of 5 millicuries of technetium 99m labeled Choletec, planar imaging in anterior projection was performed at regular intervals through 60 minutes. Following this, A total of 8 ounces of Ensure were administered orally and time activity curve was plotted during gallbladder emptying. Findings: Homogeneous distribution of Choletec was noted within the liver parenchyma. The gallbladder is visualized 20 minutes postinjection. Activity additionally is noted within small bowel. The gallbladder ejection fraction was calculated to be 13%. Impression: 1. There is no evidence of cystic duct obstruction or obstruction of the extrahepatic bile duct. There is moderate depression of gallbladder ejection fraction. In the correct clinical scenario, this could reflect evidence of chronic cholecystitis. 03/30/2016 10:38 AM PROCEDURE INTERPRETED AT [facility] DEPARTMENT OF RADIOLOGY Final Report Signed by: Dr. Graeme Shore
--- NOTE | 2016-03-30 10:58 | Emergency Department Note ---
Esvin Hung Brittany, am scribing for, and in the presence of, Robin Alvarado MD 06:54. Christiano Hung Phillip K, MD, personally performed the services described in this documentation, ascribed by Lorrie Mcallister in my presence, and it is both accurate and complete . Arrival - Arrival Chief Complaint: Chest Pain Stated Complaint: chest pain /nausea ED Nursing Triage Note: patient c/o pain in the center of her chest that feels like a "rattling" and nausea started at 0400 this morning Mode of Arrival: Wheelchair Limitations: No Limitations Source: Patient Time Seen by Provider: 03/30/16 06:30 - History of Present Illness HPI Narrative: This is a 51 y/o black female,who presents to the ED with c/o CP which started at 0400 this morning. She states she was awoken from sleep at 0400 this morning with CP and SOB. She states the chest pain is more of an aching type of pain and comes and goes. She states the pain does not radiate. She has had nausea, but denies any vomiting or diaphoresis. She state the chest pain is worse with exertion. Pt also complains of upper gastric pain, more so on the right than the left. Pt has no other complaints/pain in the ED at this time. Pt has a PMhx of CHF, HTN, anxiety, depression, thyroid disorder, IDDM, dyslipidemia, asthma, COPD, obstructive sleep apnea, renal failure, recurring UTIs, GERD, back/neck problems, GI problems, and anemia. Pt has had an Heart cath, EGD, hysterectomy, tubal ligation, and gynecological surgery. Pt has a family medical Hx of cancer and diabetes. Pt denies a social Hx. Pt's heart cath was in February 2015 and was normal. Patient does report right upper quadrant abdominal pain after meals over the last several months. Onset (ago): hour(s) (Started at 0400 this morning.) Consistency: intermittent Severity: moderate Quality: aching Date of Last Menstrual Period: hyst Allergies/Adverse Reactions: Allergies Allergy/AdvReac Type Severity Reaction Status Date / Time Amoxicillin Allergy RASH Verified 03/30/16 06:21 ciprofloxacin [From Cipro] Allergy RASH Verified 03/30/16 06:21 Home Medications: Home Medications Medication Instructions Recorded Confirmed Type Pantoprazole Tab [Protonix Tab] 40 mg PO DAILY #14 tablet 08/07/14 03/24/16 Rx Levothyroxine Tab [Synthroid Tab] 75 mcg PO DAILY@0700 #30 tablet 08/19/1403/24 Rx Albuterol Sulfate [Ventolin HFA] 2 puff INH Q6H PRN 11/10/14 03/24/16 History Atorvastatin [Lipitor] 40 mg PO DAILY 08/20/15 03/24/16 History Furosemide Tab [Lasix Tab] 80 mg PO DAILY 08/20/15 03/24/16 History Insulin Glargine,Hum.rec.anlog 80 unit SUBCUT BEDTIME 08/20/15 03/24/16 History [Toujeo SoloStar] Potassium Chloride 8 meq PO DAILY 08/20/15 03/24/16 History Doxazosin Mesylate 1 mg PO BEDTIME 02/02/16 03/24/16 History Gabapentin 300 mg PO TID 02/02/16 03/24/16 History Insulin Aspart [NovoLOG FlexPen] 10 units SUBCUT TID W/MEALS 02/02/16 03/24/16 History Tramadol HCl [Tramadol Tab] 50 mg PO BID 02/02/16 03/24/16 History hydrALAZINE TAB [Apresoline Tab] 100 mg PO TID #90 tablet 02/02/16 03/24/16 Rx Albuterol Sulfate [Albuterol Neb] 2.5 mg RESP TX TID 03/17/16 03/24/16 History Isosorbide Dinitrate 30 mg PO TID 03/17/16 03/24/16 History Nebivolol HCl [Bystolic] 20 mg PO DAILY 03/17/16 03/24/16 History Saxagliptin HCl [Onglyza] 2.5 mg PO DAILY 03/17/16 03/24/16 History cloNIDine TAB [Catapres Tab] 0.3 mg PO TID 03/17/16 03/24/16 History clonazePAM TAB [KlonoPIN] 0.25 mg PO BID PRN #0 tablet 03/19/16 03/24/16 Rx Aspirin EC Tab 81 mg PO DAILY 03/24/16 03/24/16 History Ondansetron Odt Tab [Zofran Odt] 4 mg PO Q6H PRN #20 tablet 03/30/16 Rx traMADol TAB [Ultram] 50 mg PO Q6H #20 tablet 03/30/16 Rx Review of System - Review of System 12 point system: reviewed and no additional remarkable complaints except as stated - Review of System Constitutional: Absent: diaphoresis Cardiovascular: Present: chest pain, dyspnea on exertion, other Gastrointestinal: Present: abdominal pain (Upper gastric pain ), nausea. Absent : vomiting Medical,Surgical,& Family Hx - Medical History Cardio: History of: CHF (with history of preserved ejection fraction), Hypertension Psychological: History of: Anxiety Disorders, Depression Neurology: No history of: Seizures Endocrine: History of: Diabetes Mellitus (IDDM), Dyslipidemia, Thyroid Disorder Respiratory: History of: Asthma, Bronchitis, Obstructive Sleep Apnea (wears cpap at home) Renal: History of: Renal Failure Genitourinary: History of: Recurring Urinary Tract Infections Gastrointestinal: History of: GERD, GI Problems (hiatal hernia) Musculoskeletal: History of: Back/Neck Problems (arthitis), Degenerative Disk Disease Hematology: History of: Anemia - Surgical History Cardiac Surgeries: Sugical HX of: Cardiac Catheterization (February 2015, showed normal ) Thoracic Surgeries: Patient denies;: Organ Transplant Abdominal Surgeries: Surgical HX of: EGD Patient denies: Colonoscopy Reproductive Surgeries: Surgical HX of;: Gynecologic Surgery, Hysterectomy, Tubal Ligation - Family History Family History: Reports;: Family Cancer (grandmother), Family Diabetes, Family Hypertension (mother, brother) - Social History Smoking Status: Never smoker Frequency of Alcohol Use: None Type of Drug Use: None Exam Vital Signs: Vital Signs Temperature 97.0 F L 03/30/16 06:15 Pulse Rate 69 03/30/16 07:35 Respiratory Rate 18 03/30/16 07:35 Blood Pressure 231/95 03/30/16 07:35 O2 Sat by Pulse Oximetry 100 03/30/16 07:35 - General General appearance: alert, in no apparent distress - Head Head exam: Present: atraumatic, normocephalic, normal inspection - Eye Eye exam: Present: normal appearance, PERRL, EOMI. Absent: nystagmus - ENT ENT exam: Present: normal exam, normal oropharynx, mucous membranes moist - Neck Neck exam: Present: normal inspection, full ROM, trachea midline. Absent: tenderness, thyromegaly - Chest Chest inspection: Present: normal inspection, symmetric chest wall rise. Absent : tenderness, rash, abscess - Respiratory Respiratory exam: Present: normal lung sounds bilaterally. Absent: accessory muscle use, prolonged expiratory phase, rales, respiratory distress, rhonchi, stridor, wheezes - Cardiovascular Cardiovascular exam: Present: regular rate, normal rhythm, normal heart sounds. Absent: murmur, rubs, gallop, clicks, JVD - Abdominal Exam Abdominal exam: Present: soft, tenderness (TTP to the upper abd, more so on the right side), normal bowel sounds. Absent: distention, guarding, rebound, rigidity - Extremities Exam Extremities exam: Present: normal capillary refill, pedal edema (Trace of edema to the bilateral lower extremities. ) - Back Exam Back exam: Present: normal inspection, full ROM. Absent: tenderness, muscle spasm, rashes - Neurological Exam Neurological exam: Present: alert, oriented X3, CN II-XII intact, reflexes normal. Absent: motor sensory deficit - Psychiatric Psychiatric exam: Present: normal affect, normal mood. Absent: agitated, anxious - Skin Skin exam: Present: warm, dry, intact, normal color. Absent: rash, cyanosis, diaphoresis, erythema, pallor, mottled Course Course Narrative: Consult Dr. Montague. Results - Labs CBC & BMP: 03/30/16 06:24 03/30/16 06:24 Lab Results: I have reviewed the patients labs Labs: Laboratory Tests 03/30/16 03/30/16 06:24 06:24 Chloride 109 H BUN 58 H Creatinine 4.60 H Glucose 174 H Calculated Osmolality 305.8 H Globulin 4.0 H Albumin/Globulin Ratio 0.8 L Urine Urobilinogen < 2.0 H Laboratory Tests 03/30/16 03/30/16 03/30/16 06:24 06:24 06:24 Hgb 10.0 L Hct 32.1 L MCV 81.5 L MCH 25 L MCHC 31.2 L Neut % (Auto) 75.8 H Lymph % (Auto) 14.0 L Lymph # (Auto) 1.2 L Chloride 109 H BUN 58 H Creatinine 4.60 H Glucose 174 H Calculated Osmolality 305.8 H Globulin 4.0 H Albumin/Globulin Ratio 0.8 L Urine Urobilinogen < 2.0 H - Diagnostic Findings Procedure: Chest x-ray: report reviewed by me (1. Trace amount of fluid within the minor fissure is noted. 2. Borderline to mild cardiomegaly. ), Ultrasound: report reviewed by me (Gallbladder US: 1. Poorly visualized pancrase is noted. Curvilinear hypoattenuation adjacent to anterior margin could reflect a samll amount of peripancreatic fluid. Correlation is lipase is crecommended to exclude acute pancreatitis. 2. Otherwise no acute findings are suggested on submitted images. ), X-ray: report reviewed by me (HIDA scan shows a 13% ejection fraction.) Disposition Clinical Impression: Acalculous cholecystitis Case discussed with: patient, patient's family Disposition: Disch To Home/Self Care Condition: Stable Additional Instructions: Consult Dr. Montague. Patient will follow with Dr. Montague as an outpatient to have her gallbladder removed. Prescriptions: Ondansetron Odt Tab [Zofran Odt] 4 mg PO Q6H PRN #20 tablet PRN Reason: Nausea/Vomiting traMADol TAB [Ultram] 50 mg PO Q6H #20 tablet
--- NOTE | 2016-03-30 11:45 | General Surgery Consult Note ---
Assessment and Plan (1) Biliary dyskinesia Status: Acute Assessment and plan: Impression: Biliary dyskinesia, possible chronic cholecystitis Plan: I have reviewed the ultrasound, HIDA scan, and lab reports. I suspect she has biliary dyskinesia and probable chronic cholecystitis. This seems to be unchanged and not the reason that she came to the emergency room. I offered admission and discussed cholecystectomy with her. She says that she's feeling better and wants to go home in detail with her gallbladder as an outpatient. There is no evidence of acute cholecystitis and I think that would be reasonable. She can be discharged if nothing further is needed and follow up with me in clinic in a week or 2. She'll need cardiac clearance prior to proceeding with any planned surgical intervention. Current Visit: Yes History of Present Illness Chief complaint: consult for biliary dyskinesia History of present illness: Ms. Mejia is a 51 year old female presented to the emergency room with chest pain. She states the chest pain was fairly intense and located in the mid chest substernal area. There was no radiation. She also complains of at least a 6 month history of nausea, and right upper quadrant pain. This pain is different from the pain she experienced that brought her to the emergency room. She states her abdominal pain is intermittent and lasts for a couple of hours. It seems to be worse after she eats. She no longer eats any fatty or greasy food because she said that those seem to bring on her symptoms in the past. She's not had any vomiting. She has multiple medical problems including history of CHF and chronic renal insufficiency. She currently states that her abdominal pain is mild and in the right upper quadrant. It's not as bad as it usually is when it she has a flare. Home Medications Medication Instructions Recorded Confirmed Type Pantoprazole Tab [Protonix Tab] 40 mg PO DAILY #14 tablet 08/07/14 03/24/16 Rx Levothyroxine Tab [Synthroid Tab] 75 mcg PO DAILY@0700 #30 tablet 08/19/1403/24 Rx Albuterol Sulfate [Ventolin HFA] 2 puff INH Q6H PRN 11/10/14 03/24/16 History Atorvastatin [Lipitor] 40 mg PO DAILY 08/20/15 03/24/16 History Furosemide Tab [Lasix Tab] 80 mg PO DAILY 08/20/15 03/24/16 History Insulin Glargine,Hum.rec.anlog 80 unit SUBCUT BEDTIME 08/20/15 03/24/16 History [Toujeo SoloStar] Potassium Chloride 8 meq PO DAILY 08/20/15 03/24/16 History Doxazosin Mesylate 1 mg PO BEDTIME 02/02/16 03/24/16 History Gabapentin 300 mg PO TID 02/02/16 03/24/16 History Insulin Aspart [NovoLOG FlexPen] 10 units SUBCUT TID W/MEALS 02/02/16 03/24/16 History Tramadol HCl [Tramadol Tab] 50 mg PO BID 02/02/16 03/24/16 History hydrALAZINE TAB [Apresoline Tab] 100 mg PO TID #90 tablet 02/02/16 03/24/16 Rx Albuterol Sulfate [Albuterol Neb] 2.5 mg RESP TX TID 03/17/16 03/24/16 History Isosorbide Dinitrate 30 mg PO TID 03/17/16 03/24/16 History Nebivolol HCl [Bystolic] 20 mg PO DAILY 03/17/16 03/24/16 History Saxagliptin HCl [Onglyza] 2.5 mg PO DAILY 03/17/16 03/24/16 History cloNIDine TAB [Catapres Tab] 0.3 mg PO TID 03/17/16 03/24/16 History clonazePAM TAB [KlonoPIN] 0.25 mg PO BID PRN #0 tablet 03/19/16 03/24/16 Rx Aspirin EC Tab 81 mg PO DAILY 03/24/16 03/24/16 History Ondansetron Odt Tab [Zofran Odt] 4 mg PO Q6H PRN #20 tablet 03/30/16 Rx traMADol TAB [Ultram] 50 mg PO Q6H #20 tablet 03/30/16 Rx Allergies Allergy/AdvReac Type Severity Reaction Status Date / Time Amoxicillin Allergy RASH Verified 03/30/16 06:21 ciprofloxacin [From Cipro] Allergy RASH Verified 03/30/16 06:21 Medical,Surgical,& Family Hx - Medical History Cardio: History of: CHF (with history of preserved ejection fraction), Hypertension Psychological: History of: Anxiety Disorders, Depression Neurology: No history of: Seizures Endocrine: History of: Diabetes Mellitus (IDDM), Dyslipidemia, Thyroid Disorder Respiratory: History of: Asthma, Bronchitis, Obstructive Sleep Apnea (wears cpap at home) Renal: History of: Renal Failure Genitourinary: History of: Recurring Urinary Tract Infections Gastrointestinal: History of: GERD, GI Problems (hiatal hernia) Musculoskeletal: History of: Back/Neck Problems (arthitis), Degenerative Disk Disease Hematology: History of: Anemia - Surgical History Cardiac Surgeries: Sugical HX of: Cardiac Catheterization (February 2015, showed normal ) Thoracic Surgeries: Patient denies;: Organ Transplant Abdominal Surgeries: Surgical HX of: EGD Patient denies: Colonoscopy Reproductive Surgeries: Surgical HX of;: Gynecologic Surgery, Hysterectomy, Tubal Ligation - Family History Family History: Reports;: Family Cancer (grandmother), Family Diabetes, Family Hypertension (mother, brother) - Social History Smoking Status: Never smoker Frequency of Alcohol Use: None Type of Drug Use: None 12 point system: reviewed and no additional remarkable complaints except as stated Exam - Constitutional Vitals: Period Temp Pulse Resp BP Sys/Loving Pulse Ox Last 24 Hr 97 F-97.0 F 61-69 18-20 231-250/89-95 95-100 General appearance: no acute distress - Head Head exam: Present: normocephalic - ENT Mouth exam: Present: normal external inspection - Neck Neck exam: Present: normal inspection - Respiratory Respiratory exam: Present: clear to auscultation bilaterally - Cardiovascular Cardiovascular exam: Present: RRR - GI/Abdominal GI/Abdominal exam: Present: soft (very minimal tenderness elicited in the right upper quadrant. She is obese. Appears nondistended. Bowel sounds are normal.) - Extremities Exam Extremities exam: Present: normal inspection - Back Exam Back exam: Present: normal inspection - Neurological Exam Neurological exam: Present: alert, oriented X3 Speech: Present: normal - Skin Skin exam: Present: normal color Results - Labs CBC & BMP: 03/30/16 06:24 03/30/16 06:24 Lab Results: I have reviewed the past 24 hour labs
[2016-03-30] MEDS ORDERED: DOCUSATE SODIUM 100 MG CAPSULE PO PRN (12:58)
[2016-03-30] MEDS ORDERED: DEXTROSE 50% 25 GM/50 ML VIAL IV PRN (12:58)
[2016-03-30] MEDS ORDERED: MORPHINE 2 MG/1 ML SYRINGE IV PRN (12:58)
[2016-03-30] MEDS ORDERED: ONDANSETRON 4 MG/2 ML VIAL IV PRN (12:58)
[2016-03-30] MEDS ORDERED: ACETAMINOPHEN 325 MG TABLET PO PRN (12:58)
[2016-03-30] MEDS ORDERED: LACTULOSE 20 GM/30 ML UDCUP PO PRN (12:58)
[2016-03-30] MEDS ORDERED: GLUCAGON 1 MG VIAL IM PRN (12:58)
--- NOTE | 2016-03-30 13:26 | Hospitalist History & Physical ---
Assessment and Plan - Time spent with patient Time spent with patient: Greater than 30 minutes (due to assessment, plan and documentation.) (1) Acalculous cholecystitis Status: Acute Assessment and plan: Dr. Akash Cavazos with General Surgery has seen and evaluated HIDA revealed chronic cholecystitis with EF 13% IV @ 75 cc/hr serial troponins/ekg's for completion of cardiac work up cardiology consult to clear for surgery PRN medications VTE prophylaxis Current Visit: Yes (2) Morbid obesity Status: Acute Current Visit: Yes (3) Biliary dyskinesia Status: Acute Current Visit: Yes (4) Chronic kidney disease, stage IV (severe) Status: Acute Current Visit: No (5) Insulin dependent diabetes mellitus Status: Acute Assessment and plan: accuchecks ac/hs sliding scale insulin continue home medications Current Visit: No (6) Non compliance w medication regimen Status: Acute Current Visit: No (7) Obstructive sleep apnea on CPAP Status: Acute Current Visit: No (8) hyperlipidemia Status: Chronic Assessment and plan: continue home medications Current Visit: No (9) Hypertension Status: Acute Assessment and plan: question compliance of medications continue on home medications and see how she does. hydralazine PRN Current Visit: Yes History of Present Illness Chief complaint: chest pain, mid epigastric pain. History of present illness: Ms. Mejia is a 51 year old morbidly obese female who presented to the ED this morning with complaints of chest pain, and mid epigastric pain. She did not have any radiation of her chest pain, but she did have shortness of breath. Pain was worse with exertion and resolved with rest. Her troponins were negative , EKG negative. BNP normal. CXR showed cardiomegaly. After cardiac cause was felt to have been ruled out, a gallbladder u/s was obtained and showed " no acute findings". HIDA scan was obtained and showed a poorly functioning gallbladder with EF 13% and evidence of chronic cholecystitis. She has an extensive medical history significant for HTN, DM, HLD, CHF, GERD, Asthma/ Bronchitis, "renal problems" followed by Dr. Alonso Brown, HARVINDER (CPAP),depression/ anxiety, DDD, anemia. She does have a hx of Hiatal hernia that was found with EGD in the past. She has a family history significant for Cancer in her grandmother, DM, HTN in Mom and Brother. Her Blood pressure is high at 250/89 at this time. She states that she has not had her medications this morning. There is a question of medical noncompliance and follow up. We will continue her home medications and monitor her BP along with her glucoses. We will have Cardiology clear for surgery as well. She sees Dr. Erich Jiménez. She is and lives at home with her and typically functions independently. Further plan and addendum to follow by Dr. Sona Freeman. Home Medications Medication Instructions Recorded Confirmed Type Pantoprazole Tab [Protonix Tab] 40 mg PO DAILY #14 tablet 08/07/14 03/24/16 Rx Levothyroxine Tab [Synthroid Tab] 75 mcg PO DAILY@0700 #30 tablet 08/19/1403/24 Rx Albuterol Sulfate [Ventolin HFA] 2 puff INH Q6H PRN 11/10/14 03/24/16 History Atorvastatin [Lipitor] 40 mg PO DAILY 08/20/15 03/24/16 History Furosemide Tab [Lasix Tab] 80 mg PO DAILY 08/20/15 03/24/16 History Insulin Glargine,Hum.rec.anlog 80 unit SUBCUT BEDTIME 08/20/15 03/24/16 History [Toujeo SoloStar] Potassium Chloride 8 meq PO DAILY 08/20/15 03/24/16 History Doxazosin Mesylate 1 mg PO BEDTIME 02/02/16 03/24/16 History Gabapentin 300 mg PO TID 02/02/16 03/24/16 History Insulin Aspart [NovoLOG FlexPen] 10 units SUBCUT TID W/MEALS 02/02/16 03/24/16 History Tramadol HCl [Tramadol Tab] 50 mg PO BID 02/02/16 03/24/16 History hydrALAZINE TAB [Apresoline Tab] 100 mg PO TID #90 tablet 02/02/16 03/24/16 Rx Albuterol Sulfate [Albuterol Neb] 2.5 mg RESP TX TID 03/17/16 03/24/16 History Isosorbide Dinitrate 30 mg PO TID 03/17/16 03/24/16 History Nebivolol HCl [Bystolic] 20 mg PO DAILY 03/17/16 03/24/16 History Saxagliptin HCl [Onglyza] 2.5 mg PO DAILY 03/17/16 03/24/16 History cloNIDine TAB [Catapres Tab] 0.3 mg PO TID 03/17/16 03/24/16 History clonazePAM TAB [KlonoPIN] 0.25 mg PO BID PRN #0 tablet 03/19/16 03/24/16 Rx Aspirin EC Tab 81 mg PO DAILY 03/24/16 03/24/16 History Ondansetron Odt Tab [Zofran Odt] 4 mg PO Q6H PRN #20 tablet 03/30/16 Rx traMADol TAB [Ultram] 50 mg PO Q6H #20 tablet 03/30/16 Rx Allergies Allergy/AdvReac Type Severity Reaction Status Date / Time Amoxicillin Allergy RASH Verified 03/30/16 06:21 ciprofloxacin [From Cipro] Allergy RASH Verified 03/30/16 06:21 Medical,Surgical,& Family Hx - Medical History Cardio: History of: CHF (with history of preserved ejection fraction), Hypertension Psychological: History of: Anxiety Disorders, Depression Neurology: No history of: Seizures Endocrine: History of: Diabetes Mellitus (IDDM), Dyslipidemia, Thyroid Disorder Respiratory: History of: Asthma, Bronchitis, Obstructive Sleep Apnea (wears cpap at home) Renal: History of: Renal Failure Genitourinary: History of: Recurring Urinary Tract Infections Gastrointestinal: History of: GERD, GI Problems (hiatal hernia) Musculoskeletal: History of: Back/Neck Problems (arthitis), Degenerative Disk Disease Hematology: History of: Anemia - Surgical History Cardiac Surgeries: Sugical HX of: Cardiac Catheterization (February 2015, showed normal ) Thoracic Surgeries: Patient denies;: Organ Transplant Abdominal Surgeries: Surgical HX of: EGD Patient denies: Colonoscopy Reproductive Surgeries: Surgical HX of;: Gynecologic Surgery, Hysterectomy, Tubal Ligation - Family History Family History: Reports;: Family Cancer (grandmother), Family Diabetes, Family Hypertension (mother, brother) - Social History Smoking Status: Never smoker Frequency of Alcohol Use: None Type of Drug Use: None Marital Status: Lives With:: Spouse Functional capacity: independent ambulation - Constitutional Constitutional: Absent: chills, fever(s), weakness - EENT Eyes: Absent: blurry vision, diplopia Ears: Absent: decreased hearing, tinnitus Nose, mouth and throat: Absent: dysphagia, headache(s) - Cardiovascular Cardiovascular: Present: chest pain with activity (resolved), dyspnea (resolved) . Absent: dyspnea on exertion, radiating jaw, neck or arm pain, lightheadedness , palpitations - Respiratory Respiratory: Absent: cough, dyspnea, hemoptysis, wheezing - Gastrointestinal Gastrointestinal: Absent: abdominal pain, melena, nausea, vomiting - Genitourinary Genitourinary: Absent: dysuria, hematuria - Musculoskeletal Musculoskeletal: Absent: arthralgias, joint swelling - Neurological Neurological: Absent: confusion, dizziness - Psychiatric Psychiatric: Absent: anxiety, confusion, depression - Endocrine Endocrine: Absent: cold intolerance, heat intolerance - Hematologic/Lymphatic Hematologic/Lymphatic: Absent: easy bleeding, easy bruising Exam - Constitutional Vitals: Period Temp Pulse Resp BP Sys/Loving Pulse Ox Last 24 Hr 97 F-97.0 F 61-69 18-20 231-250/89-95 95-100 General appearance: no acute distress, morbidly obese - Head Head exam: Present: normal inspection, normocephalic - Eye Eye exam: Present: EOMI. Absent: scleral icterus Pupils: Present: [place], normal accommodation - ENT ENT exam: Present: normal exam, normal oropharynx - Neck Neck exam: Present: normal inspection. Absent: lymphadenopathy - Respiratory Respiratory exam: Present: clear to auscultation bilaterally. Absent: accessory muscle use - Cardiovascular Cardiovascular exam: Present: regular rate and rhythm. Absent: carotid bruit - GI/Abdominal GI/Abdominal exam: Present: normal bowel sounds, soft. Absent: tenderness - Extremities Exam Extremities exam: Present: normal inspection. Absent: edema - Back Exam Back exam: Present: normal inspection. Absent: muscle spasm - Neurological Exam Neurological exam: Present: alert, oriented X3 - Psychiatric Psychiatric exam: Present: normal affect, normal mood - Skin Skin exam: Present: normal color, warm, dry, intact Results - Labs CBC & BMP: 03/30/16 06:24 03/30/16 06:24 Lab Results: I have reviewed the past 24 hour labs
[2016-03-30] MEDS: ENOXAPARIN 30 MG/0.3 ML SYRINGE SUBCUT SCH (15:30)
[2016-03-30] MEDS: SODIUM CHLORIDE 0.9% 1,000 ML IV SCH (15:30)
[2016-03-30] MEDS: hydrALAZINE 20 MG/1 ML VIAL IV PRN (15:35)
[2016-03-30] MEDS: INSULIN LISPRO 100 UNIT/ML SUBCUT SCH ×2 (16:35→20:52)
[2016-03-30] MEDS: ISOSORBIDE DINITRATE 20 MG TABLET PO SCH (20:52)
[2016-03-30] MEDS: DOXAZOSIN 1 MG TABLET PO SCH (20:52)
[2016-03-30] MEDS: ZALEPLON 5 MG CAPSULE PO PRN (20:52)
--- NOTE | 2016-03-30 22:09 | Cardiology Progress Note ---
Assessment and Plan (1) Pre-op evaluation Status: Acute Current Visit: Yes (2) Hypertensive urgency Status: Resolved Current Visit: No (3) Obstructive sleep apnea on CPAP Status: Acute Current Visit: No (4) Chronic kidney disease, stage IV (severe) Status: Acute Current Visit: No Cardiology - PN: Subj Interval history: Mrs. Mejia was having chest pain but has had no further tonight. She reports intermittent shortness of breath episodes for 3-5 months. She is found to have some gallbladder disease is being considered for cholecystectomy at a later time. Her blood pressures been severely elevated persistently above 200 mmHg. She reports that she is taking her blood pressure medicine regularly and is using her CPAP every night. He reports that she's lost 5 pounds. Exam (Progress Note) - Constitutional Vitals: Period Temp Pulse Resp BP Sys/Loving Pulse Ox Last 24 Hr 98.1 F 18-71 19-24 190-210/73-90 97-99 General appearance: no acute distress, over weight - Head Head exam: Present: normal inspection, normocephalic, atraumatic - Neck Neck exam: Present: normal inspection - Respiratory Respiratory exam: Absent: stridor, wheezes - Cardiovascular Cardiovascular exam: Present: regular rate and rhythm. Absent: diastolic murmur , rubs - GI/Abdominal GI/Abdominal exam: Present: soft. Absent: tenderness - Extremities Exam Extremities exam: Absent: edema Result/EKG - Labs CBC & BMP: 03/30/16 06:24 03/30/16 06:24 Labs: Laboratory Results - last 24 hr 03/30/16 03/30/16 15:30 16:39 POC Glucose 150 H Troponin I < 0.015
--- NOTE | 2016-03-30 22:14 | Cardiology Consult Note ---
Assessment and Plan (1) Pre-op evaluation Status: Acute Assessment and plan: 1. 51-year-old obese BF with apparent malignant hypertension now with hypertensive urgency, diabetes, stage IV CKD, HARVINDER on CPAP, with resolved chest pain, found to have gallbladder disease being considered for outpatient cholecystectomy later time 2. Mrs. Hendrix had a negative heart catheterization July 2015 which she had normal renal arteriogram (prompted by remote nuclear scan suggesting AARON) 3. She is a normal LV function and as she has normal coronaries she is a low risk for ischemic events, however given her severe hypertension shortly better control prior to surgery 4. Add amlodipine 10mg twice a day 5. Continue to use CPAP religiously, as well as dietary changes we discussed to continue to lose weight 6. Add carvedilol 3.125 mg twice a day Current Visit: Yes (2) Hypertensive urgency Status: Resolved Current Visit: No (3) Obstructive sleep apnea on CPAP Status: Acute Current Visit: No (4) Chronic kidney disease, stage IV (severe) Status: Acute Current Visit: No History of Present Illness - Consult Narrative History of present illness: Ms. Mejia is a 51 year old female Mrs. Mejia was having chest pain but has had no further tonight. She reports intermittent shortness of breath episodes for 3-5 months. She is found to have some gallbladder disease is being considered for cholecystectomy at a later time. Her blood pressures been severely elevated persistently above 200 mmHg. She reports that she is taking her blood pressure medicine regularly and is using her CPAP every night. He reports that she's lost 5 pounds. CC: Sona Freeman MD - Home Medications and Allergies Home Medications: Home Medications Medication Instructions Recorded Confirmed Type Pantoprazole Tab [Protonix Tab] 40 mg PO DAILY #14 tablet 08/07/14 03/30/16 Rx Levothyroxine Tab [Synthroid Tab] 75 mcg PO DAILY@0700 #30 tablet 08/19/1403/30 Rx Albuterol Sulfate [Ventolin HFA] 2 puff INH Q6H PRN 11/10/14 03/30/16 History Atorvastatin [Lipitor] 40 mg PO DAILY 08/20/15 03/30/16 History Furosemide Tab [Lasix Tab] 80 mg PO DAILY 08/20/15 03/30/16 History Doxazosin Mesylate 1 mg PO BEDTIME 02/02/16 03/30/16 History Gabapentin 300 mg PO TID 02/02/16 03/30/16 History Tramadol HCl [Tramadol Tab] 50 mg PO BID 02/02/16 03/30/16 History hydrALAZINE TAB [Apresoline Tab] 100 mg PO TID #90 tablet 02/02/16 03/30/16 Rx Albuterol Sulfate [Albuterol Neb] 2.5 mg RESP TX TID 03/17/16 03/30/16 History Isosorbide Dinitrate 30 mg PO TID 03/17/16 03/30/16 History Nebivolol HCl [Bystolic] 20 mg PO DAILY 03/17/16 03/30/16 History Saxagliptin HCl [Onglyza] 2.5 mg PO DAILY 03/17/16 03/30/16 History cloNIDine TAB [Catapres Tab] 0.3 mg PO TID 03/17/16 03/30/16 History Aspirin EC Tab 81 mg PO DAILY 03/24/16 03/30/16 History Ferrous Sulfate 325 mg PO DAILY 03/30/16 03/30/16 History Insulin Glargine,Hum.rec.anlog 40 unit SUBCUT BEDTIME 03/30/16 03/30/16 History [Tousavage SoloStar] Methocarbamol Tab [Robaxin Tab] 750 mg PO TID PRN 03/30/16 03/30/16 History Ondansetron Odt Tab [Zofran Odt] 4 mg PO Q6H PRN #20 tablet 03/30/16 Rx clonazePAM TAB [KlonoPIN] 0.25 mg PO BID 03/30/16 03/30/16 History traMADol TAB [Ultram] 50 mg PO Q6H #20 tablet 03/30/16 Rx Allergies/Adverse Reactions: Allergies Allergy/AdvReac Type Severity Reaction Status Date / Time Amoxicillin Allergy RASH Verified 03/30/16 06:21 ciprofloxacin [From Cipro] Allergy RASH Verified 03/30/16 06:21 Medical,Surgical,& Family Hx - Medical History Cardio: History of: CHF (with history of preserved ejection fraction), Hypertension Psychological: History of: Anxiety Disorders, Depression Neurology: No history of: Seizures Endocrine: History of: Diabetes Mellitus (IDDM), Dyslipidemia, Thyroid Disorder Respiratory: History of: Asthma, Bronchitis, Obstructive Sleep Apnea (wears cpap at home) Renal: History of: Renal Failure Genitourinary: History of: Recurring Urinary Tract Infections Gastrointestinal: History of: GERD, GI Problems (hiatal hernia) Musculoskeletal: History of: Back/Neck Problems (arthitis), Degenerative Disk Disease Hematology: History of: Anemia - Surgical History Cardiac Surgeries: Sugical HX of: Cardiac Catheterization (February 2015, showed normal ) Thoracic Surgeries: Patient denies;: Organ Transplant Abdominal Surgeries: Surgical HX of: EGD Patient denies: Colonoscopy Reproductive Surgeries: Surgical HX of;: Gynecologic Surgery, Hysterectomy, Tubal Ligation - Family History Family History: Reports;: Family Cancer (grandmother), Family Diabetes, Family Hypertension (mother, brother) Denies;: Family Anesthesia Reaction, Family Heart Disease, Family Hematology , Family Psychiatric Problems, Family Stroke, Additional Family History - Social History Smoking Status: Never smoker Frequency of Alcohol Use: None Type of Drug Use: None Physical Examination Vital Signs Temp Pulse Resp BP Pulse Ox 97.0 F L 61 20 250/89 95 03/30/16 06:15 03/30/16 06:15 03/30/16 06:15 03/30/16 06:15 03/30/16 06:15 General: Present: Appears Well, No Apparent Distress HEENT: Present: Normocephaly Neck: Present: Supple Neck, No Bruit Cardiac: Present: Reg Rate and Rhythm. Absent: No Murmur, Bradycardia Lungs: Present: Normal Breath Sounds. Absent: No Rales, No Rhonchi Abdomen: Present: Soft, Non-Tender Extremities: Present: No Edema Result/EKG - Labs CBC & BMP: 03/30/16 06:24 03/30/16 06:24 Labs: Laboratory Results - last 24 hr 03/30/16 03/30/16 15:30 16:39 POC Glucose 150 H Troponin I < 0.015
[2016-03-30] MEDS: amLODIPine 10 MG TABLET PO SCH (23:46)
[2016-03-30] MEDS: CARVEDILOL 3.125 MG TABLET PO SCH (23:46)
[2016-03-31] MEDS: hydrALAZINE 20 MG/1 ML VIAL IV PRN (04:34)
[2016-03-31] MEDS: SODIUM CHLORIDE 0.9% 1,000 ML IV SCH (04:50)
[2016-03-31 06:14] LABS: Basophils % 0.6 % (0.0-0.8); Eosinophils # 0.2 10*3/uL (0.0-0.87); Eosinophils % 2.9 % (0.00-10.9); Hematocrit 30.4 VOL% (35.7-47.0); Hemoglobin 9.5 GM/DL (12.0-16.0); Immature Granulocytes % 0.3 %; Immature Granulocytes Absolute 0.02 #; Lymphocytes # 1.2 10*3/uL (1.4-4.0); Lymphocytes % 16.2 % (21.3-54.2); Mean Corpuscular HGB Conc 31.3 GM/DL (32-36); Mean Corpuscular Hemoglobin 25 PG (27-34); Mean Platelet Volume 10.2 FL (9.6-12.0); Monocytes # 0.6 10*3/uL (0.11-0.8); Monocytes % 8.9 % (1.7-12.7); Neutrophils # 5.1 10*3/uL (1.4-7.4); Neutrophils % 71.1 % (38.7-73.9); Platelet Count 263 T/CUMM (130-400); Red Cell Distribution Width 16.1 % (9.3-17.3); White Blood Count 7.2 T/CUMM (4-12)
[2016-03-31 06:39] LABS: Albumin 3.1 G/DL (3.4-5.0); Bilirubin,Total 0.5 MG/DL (0.2-1.0); Calcium 8.8 MG/DL (8.5-10.1); Osmolality,Calculated 306.3 MOS/KG (273-304); Potassium 4.3 MMOL/L (3.5-5.1); Total Protein 6.6 G/DL (6.4-8.3)
[2016-03-31] MEDS ORDERED: NEBIVOLOL 10 MG TABLET PO SCH (09:00)
[2016-03-31] MEDS: INSULIN LISPRO 100 UNIT/ML SUBCUT SCH ×4 (09:22→21:23)
[2016-03-31] MEDS: ISOSORBIDE DINITRATE 20 MG TABLET PO SCH (09:23)
[2016-03-31] MEDS: PANTOPRAZOLE 40 MG TABLET PO SCH (09:25)
[2016-03-31] MEDS: amLODIPine 10 MG TABLET PO SCH (09:25)
[2016-03-31] MEDS ORDERED: METHOCARBAMOL 750 MG TABLET PO PRN (09:26)
[2016-03-31] MEDS ORDERED: ALBUTEROL 2.5 MG/3 ML NEB RESP TX PRN (09:26)
[2016-03-31] MEDS: CARVEDILOL 3.125 MG TABLET PO SCH (09:32)
--- NOTE | 2016-03-31 09:33 | Hospitalist Progress Note ---
Assessment and Plan (1) Biliary dyskinesia Status: Acute Assessment and plan: medically she is clear to proceed with surgery. I agree with adding a beta darius for better BP controll. She has CKD which is a risk for worsening renal function especially if she gets IV contrast. Current Visit: Yes (2) Hypertension Status: Chronic Assessment and plan: Poorly controlled. I agree with medications added by cardiology. Current Visit: No Qualifiers: Hypertension type: essential hypertension Qualified Code(s): I10 - Essential (primary) hypertension (3) Diabetes Status: Chronic Current Visit: No Qualifiers: Diabetes mellitus type: type 2 Diabetes mellitus complication status: with kidney complications Diabetes mellitus complication detail: with chronic kidney disease Qualified Code(s): E11.22 - Type 2 diabetes mellitus with diabetic chronic kidney disease (4) Chronic kidney disease, stage IV (severe) Status: Acute Assessment and plan: she did get a little improvement with IV hydration but I have stopped her fluids as her BP is still elevated. Monitor closely, hold all nephrotoxic medications Current Visit: No Hospitalist: Subjective Interval history: Is a 51-year-old female with history of diabetes, sleep apnea and hypertension who was having some epigastric discomfort. She was found to have gallbladder dysfunction on HIDA scan. She is scheduled for surgery. Exam - Constitutional Vitals: Period Temp Pulse Resp BP Sys/Loving Pulse Ox Last 24 Hr 97.8 F-98.9 F 18-72 16-24 166-210/73-90 95-99 General appearance: over weight - Head Head exam: Present: normocephalic, atraumatic - Eye Eye exam: Present: EOMI Pupils: Present: [place] - Respiratory Respiratory exam: Present: clear to auscultation bilaterally - Cardiovascular Cardiovascular exam: Present: regular rate and rhythm - GI/Abdominal GI/Abdominal exam: Present: normal bowel sounds, soft - Extremities Exam Extremities exam: Present: full ROM - Neurological Exam Neurological exam: Present: alert, oriented X3, CN II-XII intact - Psychiatric Psychiatric exam: Present: normal affect, normal mood - Skin Skin exam: Present: warm, intact Results - Labs CBC & BMP: 03/31/16 05:51 03/31/16 05:51
--- NOTE | 2016-03-31 10:57 | Cardiology Progress Note ---
Assessment and Plan (1) Pre-op evaluation Status: Acute Assessment and plan: 1. 51-year-old obese BF with apparent malignant hypertension now with hypertensive urgency, diabetes, stage IV CKD, HARVINDER on CPAP, with resolved chest pain, found to have gallbladder disease being considered for outpatient cholecystectomy later time 2. Mrs. Hendrix had a negative heart catheterization July 2015 which she had normal renal arteriogram (prompted by remote nuclear scan suggesting AARON) 3. She is a normal LV function and as she has normal coronaries she is a low risk for ischemic events, however given her severe hypertension shortly better control prior to surgery 4. Add amlodipine 10mg twice a day 5. Continue to use CPAP religiously, as well as dietary changes we discussed to continue to lose weight 6. Add carvedilol 3.125 mg twice a day March 31 uptake: 1. Mrs. Mejia is gradually improving symptomatically and has no more chest pain or abdominal pain 2. Her malignant hypertension is improved (210-230 systolic previously now 160s to 190 systolic); agree with Bystolic rather than Coreg, as this will be more likely to control her blood pressure without causing side effects; apparently she can afford this on her plan (many plans don't cover it well) since 3. Modest improvement in her stage IV CKD 4. HARVINDER, uses her CPAP religiously 5. We had long discussion about her need for daily significant walking and significant dietary changes; she is trying to exclusively [place], and avoiding simple carbohydrates/fast food 6. Would hold off on gallbladder surgery currently since her symptoms are gone and her blood pressure still fairly high. 7. Heart catheterization July 2015 showed normal renal arteries, and no coronary artery disease. Current Visit: Yes (2) Hypertensive urgency Status: Resolved Current Visit: No (3) Obstructive sleep apnea on CPAP Status: Acute Current Visit: No (4) Chronic kidney disease, stage IV (severe) Status: Acute Current Visit: No Cardiology - PN: Subj Interval history: Mrs. Mejia is feeling a bit better today, has not had any more chest pain or abdominal pain. She is a 89 vomiting palpitations dizziness. She uses her CPAP last night. Exam (Progress Note) - Constitutional Vitals: Period Temp Pulse Resp BP Sys/Loving Pulse Ox Last 24 Hr 96.9 F-98.9 F 18-72 16-24 145-210/69-90 95-99 General appearance: no acute distress, over weight - Head Head exam: Present: normal inspection, normocephalic, atraumatic - Respiratory Respiratory exam: Present: clear to auscultation bilaterally. Absent: stridor, wheezes - Cardiovascular Cardiovascular exam: Present: regular rate and rhythm. Absent: diastolic murmur , rubs - GI/Abdominal GI/Abdominal exam: Present: soft. Absent: tenderness - Extremities Exam Extremities exam: Absent: edema Result/EKG - Labs CBC & BMP: 03/31/16 05:51 03/31/16 05:51 Labs: Laboratory Results - last 24 hr 03/30/16 03/30/16 03/30/16 15:30 16:39 20:44 WBC RBC Hgb Hct MCV MCH MCHC RDW Plt Count MPV Neut % (Auto) Lymph % (Auto) [place] % (Auto) Eos % (Auto) Baso % (Auto) Neut # (Auto) Lymph # (Auto) [place] # (Auto) Eos # (Auto) Baso # (Auto) Immature Gran % Nucleated RBC % Immature Gran # Nucleated RBCs # Sodium Potassium Chloride Carbon Dioxide Anion Gap BUN Creatinine GFR Calculation BUN/Creatinine Ratio Glucose POC Glucose 150 H 139 H Calculated Osmolality Calcium Total Bilirubin AST ALT Alkaline Phosphatase Troponin I < 0.015 Total Protein Albumin Globulin Albumin/Globulin Ratio 03/31/16 03/31/16 03/31/16 05:51 05:51 07:18 WBC 7.2 RBC 3.80 Hgb 9.5 L Hct 30.4 L MCV 80.0 L MCH 25 L MCHC 31.3 L RDW 16.1 Plt Count 263 MPV 10.2 Neut % (Auto) 71.1 Lymph % (Auto) 16.2 L [place] % (Auto) 8.9 Eos % (Auto) 2.9 Baso % (Auto) 0.6 Neut # (Auto) 5.1 Lymph # (Auto) 1.2 L [place] # (Auto) 0.6 Eos # (Auto) 0.2 Baso # (Auto) 0.0 Immature Gran % 0.3 Nucleated RBC % 0.0 Immature Gran # 0.02 Nucleated RBCs # 0.00 Sodium 148 H Potassium 4.3 Chloride 114 H Carbon Dioxide 25 Anion Gap 13.3 BUN 54 H Creatinine 4.20 H GFR Calculation 18 BUN/Creatinine Ratio 12.00 Glucose 69 L POC Glucose 75 Calculated Osmolality 306.3 H Calcium 8.8 Total Bilirubin 0.50 AST 9 ALT 16 Alkaline Phosphatase 64 Troponin I Total Protein 6.6 Albumin 3.1 L Globulin 3.5 Albumin/Globulin Ratio 0.8 L
[2016-03-31] MEDS: clonazePAM 0.5 MG TABLET PO SCH ×2 (11:22→21:24)
--- NOTE | 2016-03-31 14:17 | General Surgery Progress Note ---
Assessment and Plan (1) Biliary dyskinesia Status: Acute Assessment and plan: Impression: Biliary dyskinesia, possible chronic cholecystitis Plan: Case was discussed with Dr. Norman. He recommends holding off on cholecystectomy until her blood pressure is better controlled. Discussed this with the patient. We'll give her some [place] for discharge. She will follow- up with cardiology and wants she is deemed an appropriate candidate will call for follow up with me in clinic to rediscuss cholecystectomy. Current Visit: Yes Subjective Patient reports: Present: no new complaints, feels better (no abdominal pain. Denies any further chest pain.) Exam - Constitutional Vitals: Period Temp Pulse Resp BP Sys/Loving Pulse Ox Last 24 Hr 96.9 F-98.9 F 60-72 16-20 126-210/65-90 95-99 General appearance: no acute distress - Head Head exam: Present: normocephalic - ENT Mouth exam: Present: normal external inspection - Neck Neck exam: Present: normal inspection - Respiratory Respiratory exam: Present: clear to auscultation bilaterally - Cardiovascular Cardiovascular exam: Present: RRR - GI/Abdominal GI/Abdominal exam: Present: soft (no significant tenderness elicited.) - Extremities Exam Extremities exam: Present: normal inspection - Back Exam Back exam: Present: normal inspection - Neurological Exam Neurological exam: Present: alert, oriented X3 Speech: Present: normal - Skin Skin exam: Present: normal color Results - Labs CBC & BMP: 03/31/16 05:51 03/31/16 05:51 Lab Results: I have reviewed the past 24 hour labs
[2016-03-31] MEDS: ISOSORBIDE DINITRATE 10 MG TABLET PO SCH ×2 (15:54→21:23)
[2016-03-31] MEDS: GABAPENTIN 300 MG CAPSULE PO SCH ×2 (15:54→21:25)
[2016-03-31] MEDS: ENOXAPARIN 30 MG/0.3 ML SYRINGE SUBCUT SCH (15:55)
[2016-03-31] MEDS ORDERED: INSULIN GLARGINE HUM REC ANLOG 40 UNIT SUBCUT SCH (21:00)
[2016-03-31] MEDS: DOXAZOSIN 1 MG TABLET PO SCH (21:24)
[2016-03-31] MEDS: ZALEPLON 5 MG CAPSULE PO PRN (21:24)
[2016-03-31] MEDS ORDERED: INSULIN GLARGINE 100 UNIT/ML SUBCUT SCH (22:30)
[2016-04-01 05:47] LABS: Calcium 8.6 MG/DL (8.5-10.1); Magnesium 2.3 MG/DL (1.8-2.4); Osmolality,Calculated 303.8 MOS/KG (273-304); Potassium 4.6 MMOL/L (3.5-5.1)
[2016-04-01] MEDS: INSULIN LISPRO 100 UNIT/ML SUBCUT SCH (07:26)
[2016-04-01] MEDS: ISOSORBIDE DINITRATE 10 MG TABLET PO SCH (08:23)
[2016-04-01] MEDS: GABAPENTIN 300 MG CAPSULE PO SCH (08:24)
[2016-04-01] MEDS: amLODIPine 10 MG TABLET PO SCH (08:24)
[2016-04-01] MEDS: clonazePAM 0.5 MG TABLET PO SCH (08:24)
[2016-04-01] MEDS: PANTOPRAZOLE 40 MG TABLET PO SCH (08:24)
--- NOTE | 2016-04-01 08:40 | Discharge Summary ---
Hospital Course - Hospital Course Hospital Course: Ms. Mejia is a 51-year-old -[place] female who presented complaining of some epigastric pain. She was found to have biliary dyskinesia. She is initially scheduled for cholecystectomy after she received clearance medically and cardiology standpoint. She does have chronic kidney disease likely from her underlying poorly controlled hypertension. She was admitted to the regular medicine floor with a surgery consultation. Also cardiology's outpatient made adjustments to her blood pressure medicine as is not well controlled. After 48 hours in the hospital it is decided that she can be managed outpatient leak with plans of following up in 2-3 weeks with surgery for possible cholecystectomy once we have gotten better control over her blood pressure. She is tolerated a regular diet without any complications. Surgery has written for [facility]. Clinically she is stable and she will also follow-up with her transfer pumper early next week for blood pressure recheck and further adjustment of her medications if needed. Diagnosis - Discharge Diagnosis (1) Biliary dyskinesia Status: Acute (2) Hypertension Status: Chronic (3) Diabetes Status: Chronic (4) Chronic kidney disease, stage IV (severe) Status: Acute Discharge Plan - Discharge Data Disposition: Disch To Home/Self Care Discharge Diet: diabetic diet, heart healthy, low salt diet Activity: resume usual activities as tolerated Contact your physician if you experience:: fever over 101, Nausea/Vomiting, Shortness of breath, pain uncontrolled by pain medications - Discharge Medications New Ondansetron Odt Tab [Zofran Odt] 4 mg PO Q6H PRN #20 tablet PRN Reason: Nausea/Vomiting amLODIPine [Norvasc] 10 mg PO DAILY #30 tablet Continue Pantoprazole Tab [Protonix Tab] 40 mg PO DAILY #14 tablet Levothyroxine Tab [Synthroid Tab] 75 mcg PO DAILY@0700 #30 tablet Albuterol Sulfate [Ventolin HFA] 2 puff INH Q6H PRN PRN Reason: Shortness Of Breath/Wheezing Atorvastatin [Lipitor] 40 mg PO DAILY Furosemide Tab [Lasix Tab] 80 mg PO DAILY Isosorbide Dinitrate 30 mg PO TID Nebivolol HCl [Bystolic] 20 mg PO DAILY Aspirin EC Tab 81 mg PO DAILY Methocarbamol Tab [Robaxin Tab] 750 mg PO TID PRN PRN Reason: Pain Doxazosin Mesylate 1 mg PO BEDTIME Gabapentin 300 mg PO TID Tramadol HCl [Tramadol Tab] 50 mg PO BID hydrALAZINE TAB [Apresoline Tab] 100 mg PO TID #90 tablet cloNIDine TAB [Catapres Tab] 0.3 mg PO TID Saxagliptin HCl [Onglyza] 2.5 mg PO DAILY Albuterol Sulfate [Albuterol Neb] 2.5 mg RESP TX TID Insulin Glargine,Hum.rec.anlog [[place] SoloStar] 40 unit SUBCUT BEDTIME Ferrous Sulfate 325 mg PO DAILY clonazePAM TAB [KlonoPIN] 0.25 mg PO BID - Follow Up or Referral Follow Up: Erich Jiménez MD [Physician] - Akash Cavazos MD [Physician] - 2 Weeks - Forms/Instructions Exam - Constitutional Vitals: Period Temp Pulse Resp BP Sys/Loving Pulse Ox Last 24 Hr 97.2 F-98.1 F 57-70 18-18 126-203/62-89 93-97 General appearance: over weight - Head Head exam: Present: normocephalic, atraumatic - Eye Eye exam: Present: EOMI Pupils: Present: [place] - ENT ENT exam: Present: normal exam - Respiratory Respiratory exam: Present: clear to auscultation bilaterally - Cardiovascular Cardiovascular exam: Present: regular rate and rhythm - GI/Abdominal GI/Abdominal exam: Present: normal bowel sounds, soft - Extremities Exam Extremities exam: Present: full ROM - Neurological Exam Neurological exam: Present: alert, oriented X3, CN II-XII intact - Psychiatric Psychiatric exam: Present: normal affect, normal mood - Skin Skin exam: Present: warm, intact Discharge Results Procedures and tests throughout hospitalization: Pending Orders 03/30/16 19:32 Influenza A & B Antigen Panel Stat Labs on day of discharge: Labs from last 24 hours 04/01/16 04/01/16 03/31/16 07:18 05:02 19:17 Sodium 144 Potassium 4.6 Chloride 111 H Carbon Dioxide 24 Anion Gap 13.6 BUN 55 H Creatinine 4.30 H GFR Calculation 17 BUN/Creatinine Ratio 12.00 Glucose 161 H POC Glucose 135 H 271 H Calculated Osmolality 303.8 Calcium 8.6 Magnesium 2.3 03/31/16 03/31/16 16:02 11:31 Sodium Potassium Chloride Carbon Dioxide Anion Gap BUN Creatinine GFR Calculation BUN/Creatinine Ratio Glucose POC Glucose 280 H 143 H Calculated Osmolality Calcium Magnesium DS: Provider Date of admission: 03/30/16 12:58 Primary care physician: . No PCP Attending physician on admission: Sona Freeman MD Consults: 03/30/16 14:45 Consult to Pharmacy [CONS] Routine Reason for Pharmacy Consult: Adjust Meds Renal Funct Discharging clinician: Sona Freeman MD Expected date of discharge: 04/01/16
[2016-04-01] MEDS ORDERED: ATORVASTATIN 40 MG TABLET PO SCH (09:00)
[2016-04-01] MEDS ORDERED: sitaGLIPtin 25 MG TABLET PO SCH (09:00)
[2016-04-01] MEDS ORDERED: NEBIVOLOL 10 MG TABLET PO SCH (09:00)
[2016-04-01] MEDS ORDERED: FERROUS SULFATE 325 MG TABLET PO SCH (09:00)
[2016-04-01 09:20] VITALS: BP 154/67
== END 2016-04-01 10:22 | disposition home or self-care (01) | DRG 445 ==
LOC: N.ED 06:11 → N.EDINP 12:58 → N.5E 15:35
PROVIDERS: ADMIT Family Medicine; ATTEND Family Medicine

== ENCOUNTER 2016-07-26 17:45 | Inpatient (IN) ==
--- NOTE | 2016-07-26 18:46 | Emergency Department Note ---
Ashok Hung Brittany, am scribing for, and in the presence of, Valdo Shore MD 18:26. Silviano Hung Robert M, MD, personally performed the services described in this documentation, ascribed by Lorrie Pulido in my presence, and it is both accurate and complete [id number] . Arrival - Arrival Chief Complaint: Shortness of Breath Stated Complaint: SOB SWELLING IN FEET ED Nursing Triage Note: SOB and fluid retention onset on yesterday - pt states that she has a HX of CHF - SOB worse with excertion - pt has home o2 2l nc Mode of Arrival: Ambulatory Limitations: No Limitations Source: Patient, RN Notes Reviewed - History of Present Illness HPI Narrative: Patient is a 51 y/o black female with a history significant for CHF presenting to the ED with c/o shortness of breath with an onset of 2 days. Patient reports that shortness of breath onset yesterday and as the day went on began to have some associated wheezing. Patient states that today shortness of breath has worsened and she has begun to have some edema of the bilateral lower extremities and has gained about 2-3 lbs. overnight. Patient notes that she did have some chest pain, but that has now resolved itself. She denies having any fever, chills, cough, abdominal pain, nausea, or vomiting. She is a patient of Dr. Ceja. No other complaint/pain. Onset (ago): day(s) (2) Consistency: constant Date of Last Menstrual Period: hyster Allergies/Adverse Reactions: Allergies Allergy/AdvReac Type Severity Reaction Status Date / Time Amoxicillin Allergy RASH Verified 05/11/16 09:05 ciprofloxacin [From Cipro] Allergy RASH Verified 05/11/16 09:05 Home Medications: Home Medications Medication Instructions Recorded Confirmed Type Albuterol Sulfate [Ventolin HFA] 2 puff INH Q6H PRN 11/10/14 07/26/16 History Atorvastatin [Lipitor] 40 mg PO 1200 08/20/15 07/26/16 History Furosemide Tab [Lasix Tab] 80 mg PO QAM 08/20/15 07/26/16 History Doxazosin Mesylate 1 mg PO BEDTIME 02/02/16 07/26/16 History Gabapentin 300 mg PO TID 02/02/16 07/26/16 History Tramadol HCl [Tramadol Tab] 50 mg PO BID 02/02/16 07/26/16 History hydrALAZINE TAB [Apresoline Tab] 100 mg PO TID #90 tablet 02/02/16 07/26/16 Rx Albuterol Sulfate [Albuterol Neb] 2.5 mg RESP TX Q8H PRN 03/17/16 07/26/16 History Isosorbide Dinitrate 30 mg PO TID 03/17/16 07/26/16 History Nebivolol HCl [Bystolic] 20 mg PO QAM 03/17/16 07/26/16 History cloNIDine TAB [Catapres Tab] 0.3 mg PO TID 03/17/16 07/26/16 History Ferrous Sulfate 325 mg PO QAM 03/30/16 07/26/16 History Insulin Glargine,Hum.rec.anlog 45 unit SUBCUT BEDTIME 03/30/16 07/26/16 History [Toujeo SoloStar] Methocarbamol Tab [Robaxin Tab] 750 mg PO TID PRN 03/30/16 07/26/16 History clonazePAM TAB [KlonoPIN] 0.5 mg PO TID 03/30/16 07/26/16 History Insulin Aspart [NovoLOG] See Protocol SUBCUT TID 05/09/16 07/26/16 History Nitroglycerin [Nitromist] 1 spray TRANSLING Q5M PRN #4 gm 06/01/16 07/26/16 Rx Cetirizine HCl [Cetirizine Tab] 10 mg PO QAM 06/05/16 07/26/16 History Levothyroxine Tab [Synthroid Tab] 75 mcg PO QAM 06/05/16 07/26/16 History Potassium Chloride 8 meq PO 1200 06/05/16 07/26/16 History Pantoprazole Tab [Protonix Tab] 40 mg PO QAM 07/26/16 07/26/16 History amLODIPine [Norvasc] 10 mg PO QAM 07/26/16 07/26/16 History Review of System - Review of System 12 point system: reviewed and no additional remarkable complaints except as stated - Review of System Constitutional: Present: weight gain. Absent: chills, diaphoresis, fever Eyes: Absent: vision change Head/Ears/Nose/Throat: Absent: nasal drainage, sore throat Respiratory: Present: as per HPI, respiratory distress Cardiovascular: Present: as per HPI, chest pain, edema Gastrointestinal: Absent: abdominal pain, nausea, vomiting, diarrhea, constipation Genitourinary female: Absent: dysuria, frequency, urgency Musculoskeletal: Absent: arm pain, back pain, leg pain, neck pain Skin: Absent: rash Neurological: Absent: headache Psychiatric: Absent: anxiety, depression Medical,Surgical,& Family Hx - Medical History Cardio: History of: CHF, Hypertension Psychological: History of: Anxiety Disorders, Depression Neurology: No history of: Seizures HEENT: History of: Eye Problem (glasses) Endocrine: History of: Diabetes Mellitus (IDDM), Dyslipidemia, Thyroid Disorder Respiratory: History of: Asthma, Bronchitis, Obstructive Sleep Apnea (wears cpap at home) Renal: History of: Renal Failure Genitourinary: History of: Recurring Urinary Tract Infections Gastrointestinal: History of: GERD, GI Problems (hiatal hernia) Musculoskeletal: History of: Back/Neck Problems (arthitis), Degenerative Disk Disease Hematology: History of: Anemia No history of: Blood Transfusion Reaction Other: No history of: Anesthesia Reactions - Surgical History Cardiac Surgeries: Sugical HX of: Cardiac Catheterization (February 2015, showed normal ) Thoracic Surgeries: Patient denies;: Organ Transplant Abdominal Surgeries: Surgical HX of: EGD Patient denies: Colonoscopy Reproductive Surgeries: Surgical HX of;: Gynecologic Surgery, Hysterectomy, Tubal Ligation - Family History Family History: Reports;: Family Cancer (grandmother), Family Diabetes, Family Hypertension (mother, brother) Denies;: Family Anesthesia Reaction, Family Heart Disease, Family Psychiatric Problems, Family Stroke - Social History Smoking Status: Never smoker Frequency of Alcohol Use: None Type of Drug Use: None Exam Vital Signs: Vital Signs Temperature 98.1 F 07/26/16 18:02 Pulse Rate 66 07/26/16 18:37 Respiratory Rate 17 07/26/16 18:37 Blood Pressure 170/73 07/26/16 18:37 O2 Sat by Pulse Oximetry 100 07/26/16 18:14 - General General appearance: alert, in no apparent distress - Head Head exam: Present: atraumatic, normocephalic, normal inspection - Eye Eye exam: Present: normal appearance, PERRL, EOMI - ENT ENT exam: Present: normal exam, normal oropharynx - Neck Neck exam: Present: normal inspection, full ROM, trachea midline - Chest Chest inspection: Present: normal inspection, symmetric chest wall rise - Respiratory Respiratory exam: Present: normal lung sounds bilaterally, other (slightly dyspneic when speaking). Absent: rales, rhonchi, wheezes - Cardiovascular Cardiovascular exam: Present: regular rate, normal rhythm, normal heart sounds. Absent: murmur, rubs, gallop - Abdominal Exam Abdominal exam: Present: soft, normal bowel sounds - Extremities Exam Extremities exam: Present: full ROM, pedal edema (+2 pitting edema noted to bilateral lower extremities). Absent: normal inspection - Back Exam Back exam: Present: normal inspection - Neurological Exam Neurological exam: Present: alert, oriented X3, CN II-XII intact. Absent: motor sensory deficit - Psychiatric Psychiatric exam: Present: normal affect, normal mood - Skin Skin exam: Present: warm, dry Course - Consultations Consultation #1: Dr. Dey will admit the patient to the hospitalist service. Time: 21:03 Results - Labs CBC & BMP: 07/26/16 18:46 07/26/16 18:32 Lab Results: I have reviewed the patients labs Labs: Lab Results WBC 7.4 T/CUMM (4-12) 07/26/16 18:46 RBC 3.43 MC/CUMM (3.8-5.5) L 07/26/16 18:46 Hgb 8.4 GM/DL (12.0-16.0) L 07/26/16 18:46 Hct 26.4 VOL% (35.7-47.0) L 07/26/16 18:46 MCV 77.0 FL (87-102) L 07/26/16 18:46 MCH 25 PG (27-34) L 07/26/16 18:46 MCHC 31.8 GM/DL (32-36) L 07/26/16 18:46 RDW 17.2 % (9.3-17.3) 07/26/16 18:46 Plt Count 248 T/CUMM (130-400) 07/26/16 18:46 MPV 9.9 FL (9.6-12.0) 07/26/16 18:46 Neut % (Auto) 75.1 % (38.7-73.9) H 07/26/16 18:46 Lymph % (Auto) 14.8 % (21.3-54.2) L 07/26/16 18:46 [place] % (Auto) 6.5 % (1.7-12.7) 07/26/16 18:46 Eos % (Auto) 3.0 % (0.00-10.9) 07/26/16 18:46 Baso % (Auto) 0.3 % (0.0-0.8) 07/26/16 18:46 Neut # (Auto) 5.5 10*3/uL (1.4-7.4) 07/26/16 18:46 Lymph # (Auto) 1.1 10*3/uL (1.4-4.0) L 07/26/16 18:46 [place] # (Auto) 0.5 10*3/uL (0.11-0.8) 07/26/16 18:46 Eos # (Auto) 0.2 10*3/uL (0.0-0.87) 07/26/16 18:46 Baso # (Auto) 0.0 10*3/uL (0.0-0.2) 07/26/16 18:46 Immature Gran % 0.3 % 07/26/16 18:46 Nucleated RBC % 0.0 /100WBC 07/26/16 18:46 Immature Gran # 0.02 # 07/26/16 18:46 Nucleated RBCs # 0.00 10*3/uL 07/26/16 18:46 Sodium 143 MMOL/L (136-145) 07/26/16 18:32 Potassium 4.0 MMOL/L (3.5-5.1) 07/26/16 18:32 Chloride 107 MMOL/L (98-107) 07/26/16 18:32 Carbon Dioxide 26 MMOL/L (21-32) 07/26/16 18:32 Anion Gap 14.0 MMOL/L (5.0-15.0) 07/26/16 18:32 BUN 74 MG/DL (7-18) H 07/26/16 18:32 Creatinine 4.80 MG/DL (0.55-1.02) H 07/26/16 18:32 GFR Calculation 15 ML/MIN 07/26/16 18:32 BUN/Creatinine Ratio 15.00 RATIO (6.00-20.00) 07/26/16 18:32 Glucose 104 MG/DL (74-106) 07/26/16 18:32 Calculated Osmolality 306.0 MOS/KG (273-304) H 07/26/16 18:32 Calcium 8.5 MG/DL (8.5-10.1) 07/26/16 18:32 Total Bilirubin < 0.39 MG/DL (0.2-1.0) 07/26/16 18:32 AST 9 U/L (0-37) 07/26/16 18:32 ALT 18 U/L (13-56) 07/26/16 18:32 Alkaline Phosphatase 88 U/L (45-117) 07/26/16 18:32 Total Creatine Kinase 138 U/L (26-192) 07/26/16 18:32 CK-MB (CK-2) < 1.0 NG/ML (0.5-3.6) 07/26/16 18:32 Troponin I < 0.015 NG/ML (0.00-0.045) 07/26/16 18:32 B-Natriuretic Peptide 47 PG/ML (2-100) 07/26/16 18:32 Total Protein 7.5 G/DL (6.4-8.3) 07/26/16 18:32 Albumin 3.5 G/DL (3.4-5.0) 07/26/16 18:32 Globulin 4.0 G/DL (2.3-3.5) H 07/26/16 18:32 Albumin/Globulin Ratio 0.8 RATIO (1.1-2.2) L 07/26/16 18:32 Urine Color Yellow (Yellow) 07/26/16 20:33 Urine Appearance Slightly hazy (Clear) 07/26/16 20:33 Urine pH 6.0 (4.5-8.0) 07/26/16 20:33 Ur Specific [place] 1.005 (1.001-1.035) 07/26/16 20:33 Urine Protein 100 MG/DL 07/26/16 20:33 Urine Glucose (UA) Negative mg/dL (Negative) 07/26/16 20:33 Urine Ketones Negative mg/dL (Negative) 07/26/16 20:33 Urine Blood Small mg/dL (Negative) 07/26/16 20:33 Urine Nitrate Negative (Negative) 07/26/16 20:33 Urine Bilirubin Negative mg/dL (Negative) 07/26/16 20:33 Urine Urobilinogen < 2.0 EU/DL (0.2-1.0) H 07/26/16 20:33 Urine Leukocytes Negative Casandra/ul (Negative) 07/26/16 20:33 Urine RBC 6 /HPF (0-4) 07/26/16 20:33 Ur Squamous Epith Cells Occasional /HPF (0-10) 07/26/16 20:33 Ur Culture Indicated? Not indicated 07/26/16 20:33 - EKG EKG results: interpreted by ERMD, WNL, sinus rhythm - Diagnostic Findings Procedure: Chest x-ray: report reviewed by me Disposition Clinical Impression: Chronic kidney disease (CKD) stage G2/A2, mildly decreased glomerular filtration rate (GFR) between 60-89 mL/min/1.73 square meter and albuminuria creatinine ratio between 30-299 mg/g, Hypertensive cardiovascular-renal disease , type 2 diabetes mellitus, hypertension, Pulmonary edema, CHF (congestive heart failure) Case discussed with: patient, patient's family Disposition: Still a Patient Condition: Stable Time of Disposition: 21:04
[2016-07-26 18:57] LABS: Basophils % 0.3 % (0.0-0.8); Eosinophils # 0.2 10*3/uL (0.0-0.87); Hematocrit 26.4 VOL% (35.7-47.0); Hemoglobin 8.4 GM/DL (12.0-16.0); Immature Granulocytes % 0.3 %; Immature Granulocytes Absolute 0.02 #; Lymphocytes # 1.1 10*3/uL (1.4-4.0); Lymphocytes % 14.8 % (21.3-54.2); Mean Corpuscular HGB Conc 31.8 GM/DL (32-36); Mean Corpuscular Hemoglobin 25 PG (27-34); Mean Platelet Volume 9.9 FL (9.6-12.0); Monocytes # 0.5 10*3/uL (0.11-0.8); Monocytes % 6.5 % (1.7-12.7); Neutrophils # 5.5 10*3/uL (1.4-7.4); Neutrophils % 75.1 % (38.7-73.9); Platelet Count 248 T/CUMM (130-400); Red Blood Count 3.43 MC/CUMM (3.8-5.5); Red Cell Distribution Width 17.2 % (9.3-17.3); White Blood Count 7.4 T/CUMM (4-12)
[2016-07-26 19:05] LABS: Alanine Aminotransferase 18 U/L (13-56); Albumin 3.5 G/DL (3.4-5.0); Alkaline Phosphatase 88 U/L (45-117); Aspartate Amino Transferase 9 U/L (0-37); Bilirubin,Total < 0.39 MG/DL (0.2-1.0); Blood Urea Nitrogen 74 MG/DL (7-18); Calcium 8.5 MG/DL (8.5-10.1); Glucose 104 MG/DL (74-106); Sodium 143 MMOL/L (136-145); Total Protein 7.5 G/DL (6.4-8.3)
[2016-07-26 19:16] LABS: Troponin I Only < 0.015 NG/ML (0.00-0.045)
--- NOTE | 2016-07-26 19:21 | XRay Report ---
Exam: XR chest 1V portable Date: 07/26/2016 6:47 PM Indication: Chest pain shortness of breath Comparison: 06/15/2016 Technical:AP portable Findings: Mild cardiac enlargement. External cardiac leads are present. No obvious infiltrate or effusion. Mediastinum is intact. Bony structures are unremarkable. Impression: Cardiomegaly with the minimal interstitial shunt vascularity without obvious effusions clearly seen at this time. PROCEDURE INTERPRETED AT [facility] DEPARTMENT OF RADIOLOGY Final Report Signed by: Dr. Vasiliy Zhou
[2016-07-26 20:46] LABS: Apearance,Urine Slightly Hazy (Clear); Bilirubin,Urine Negative (Negative); Blood, Urine Small mg/dL (Negative); Glucose,Urine (UA) Negative (Negative); Ketones,Urine Negative (Negative); Nitrite,Urine Negative (Negative); Protein,Urine 100 MG/DL; RBC,Urine 6 /HPF (0-4); Squamous Epithelial Cell,Urine Occasional /HPF (0-10); Urine Color Yellow (Yellow); Urine Specific Gravity 1.005 (1.001-1.035); Urine Urobilinogen < 2.0 EU/DL (0.2-1.0)
[2016-07-26] MEDS ORDERED: FUROSEMIDE 40 MG/4 ML VIAL IV STA (21:07)
[2016-07-26] MEDS ORDERED: NITROMIST SL PRN (21:48)
[2016-07-26] MEDS ORDERED: METHOCARBAMOL 750 MG TABLET PO PRN (21:48)
[2016-07-26] MEDS ORDERED: ALBUTEROL 2.5 MG/3 ML NEB RESP TX PRN ×2 (21:48)
[2016-07-26] MEDS ORDERED: GLUCAGON 1 MG VIAL IM PRN (21:49)
[2016-07-26] MEDS ORDERED: DEXTROSE 50% 25 GM/50 ML VIAL IV PRN (21:49)
--- NOTE | 2016-07-26 21:52 | Hospitalist History & Physical ---
Assessment and Plan (1) Acute on chronic diastolic heart failure Status: Acute Assessment and plan: Patient is last echocardiogram was from October 2014. Will repeat an echocardiogram now and repeat an EKG tomorrow. Patient denies any chest pain. We will nevertheless given abnormal EKG run troponins serially into tomorrow morning. She will need cardiology consultation. Current Visit: No (2) Chronic kidney disease, stage IV (severe) Status: Acute Current Visit: No (3) Obstructive sleep apnea on CPAP Status: Acute Assessment and plan: She needs to bring her CPAP machine to the hospital for use. at the bedside we need to inform him of that. Current Visit: No (4) type 2 diabetes mellitus Status: Chronic Current Visit: No (5) Acute on chronic diastolic CHF (congestive heart failure) Status: Resolved Assessment and plan: As above Current Visit: No History of Present Illness Chief complaint: Respiratory History of present illness: Ms. Mejia is a 51 year old female with a history significant for diastolic CHF , at least by an echocardiogram done in October 2014 presenting to the ED with c/o shortness of breath with an onset of 2 days. Patient reports that shortness of breath onset yesterday and as the day went on began to have some associated wheezing. Patient states that today shortness of breath has worsened and she has begun to have some edema of the bilateral lower extremities and has gained about 2-3 lbs. overnight. Patient notes that she did have some chest pain , but that has now resolved itself. She denies having any fever, chills, cough, abdominal pain, nausea, or vomiting. She is a patient of Dr. Ceja. Home Medications Medication Instructions Recorded Confirmed Type Albuterol Sulfate [Ventolin HFA] 2 puff INH Q6H PRN 11/10/14 07/26/16 History Atorvastatin [Lipitor] 40 mg PO 1200 08/20/15 07/26/16 History Furosemide Tab [Lasix Tab] 80 mg PO QAM 08/20/15 07/26/16 History Doxazosin Mesylate 1 mg PO BEDTIME 02/02/16 07/26/16 History Gabapentin 300 mg PO TID 02/02/16 07/26/16 History Tramadol HCl [Tramadol Tab] 50 mg PO BID 02/02/16 07/26/16 History hydrALAZINE TAB [Apresoline Tab] 100 mg PO TID #90 tablet 02/02/16 07/26/16 Rx Albuterol Sulfate [Albuterol Neb] 2.5 mg RESP TX Q8H PRN 03/17/16 07/26/16 History Isosorbide Dinitrate 30 mg PO TID 03/17/16 07/26/16 History Nebivolol HCl [Bystolic] 20 mg PO QAM 03/17/16 07/26/16 History cloNIDine TAB [Catapres Tab] 0.3 mg PO TID 03/17/16 07/26/16 History Ferrous Sulfate 325 mg PO QAM 03/30/16 07/26/16 History Insulin Glargine,Hum.rec.anlog 45 unit SUBCUT BEDTIME 03/30/16 07/26/16 History [Toujeo SoloStar] Methocarbamol Tab [Robaxin Tab] 750 mg PO TID PRN 03/30/16 07/26/16 History clonazePAM TAB [KlonoPIN] 0.5 mg PO TID 03/30/16 07/26/16 History Insulin Aspart [NovoLOG] See Protocol SUBCUT TID 05/09/16 07/26/16 History Nitroglycerin [Nitromist] 1 spray TRANSLING Q5M PRN #4 gm 06/01/16 07/26/16 Rx Cetirizine HCl [Cetirizine Tab] 10 mg PO QAM 06/05/16 07/26/16 History Levothyroxine Tab [Synthroid Tab] 75 mcg PO QAM 06/05/16 07/26/16 History Potassium Chloride 8 meq PO 1200 06/05/16 07/26/16 History Pantoprazole Tab [Protonix Tab] 40 mg PO QAM 07/26/16 07/26/16 History amLODIPine [Norvasc] 10 mg PO QAM 07/26/16 07/26/16 History Allergies Allergy/AdvReac Type Severity Reaction Status Date / Time Amoxicillin Allergy RASH Verified 05/11/16 09:05 ciprofloxacin [From Cipro] Allergy RASH Verified 05/11/16 09:05 Medical,Surgical,& Family Hx - Medical History Cardio: History of: CHF, Hypertension Psychological: History of: Anxiety Disorders, Depression Neurology: No history of: Seizures HEENT: History of: Eye Problem (glasses) Endocrine: History of: Diabetes Mellitus (IDDM), Dyslipidemia, Thyroid Disorder Respiratory: History of: Asthma, Bronchitis, Obstructive Sleep Apnea (wears cpap at home) Renal: History of: Renal Failure Genitourinary: History of: Recurring Urinary Tract Infections Gastrointestinal: History of: GERD, GI Problems (hiatal hernia) Musculoskeletal: History of: Back/Neck Problems (arthitis), Degenerative Disk Disease Hematology: History of: Anemia No history of: Blood Transfusion Reaction Other: No history of: Anesthesia Reactions - Surgical History Cardiac Surgeries: Sugical HX of: Cardiac Catheterization (February 2015, showed normal ) Thoracic Surgeries: Patient denies;: Organ Transplant Abdominal Surgeries: Surgical HX of: EGD Patient denies: Colonoscopy Reproductive Surgeries: Surgical HX of;: Gynecologic Surgery, Hysterectomy, Tubal Ligation - Family History Family History: Reports;: Family Cancer (grandmother), Family Diabetes, Family Hypertension (mother, brother) Denies;: Family Anesthesia Reaction, Family Heart Disease, Family Psychiatric Problems, Family Stroke - Social History Smoking Status: Never smoker Frequency of Alcohol Use: None Type of Drug Use: None Review of systems: 12 point system assessment was done and significant for chief complaint and history of presenting illness. She states that her breathing is a little better now but she will fighting for breath. She uses oxygen at home. She acknowledges having sleep apnea and chronic bilateral leg edema. Looks very tired denies any chest pain Exam - Constitutional Vitals: Period Temp Pulse Resp BP Sys/Loving Pulse Ox Last 24 Hr 98.1 F 66-67 17-20 151-170/65-73 99-100 General appearance: morbidly obese - Head Head exam: Present: normocephalic - Eye Eye exam: Present: EOMI Pupils: Present: [place] - ENT ENT exam: Present: other (No lesions in the mouth is difficult to visualize the posterior pharynx) - Neck Neck exam: Present: other (Supple neck thyroid fullness bilaterally she appears to have a goiter presence of mild JVD) - Respiratory Respiratory exam: Present: other (Bilateral rales no wheezing no rhonchi) - Cardiovascular Cardiovascular exam: Present: regular rate and rhythm, other (EKG shows poor progression of anterior forces suggesting possibility of antral lateral myocardial infarction. She does not recall having had any heart attack in the past. This EKG is unchanged from previous EKG from May) - GI/Abdominal GI/Abdominal exam: Present: other (Obese abdomen nontender no guarding no obvious hepatosplenomegaly) - Extremities Exam Extremities exam: Present: other (Bilateral leg edema range of motion limited by generalized weakness) - Neurological Exam Neurological exam: Present: alert, oriented X3, CN II-XII intact - Psychiatric Psychiatric exam: Present: other (Subdued affect) - Skin Skin exam: Present: normal color, warm, dry, other (Leg edema) Results - Labs CBC & BMP: 07/26/16 18:46 07/26/16 18:32 Lab Results: I have reviewed the past 24 hour labs (Noted chronic looking anemia also chronic kidney disease stage 4/5)
[2016-07-26] MEDS ORDERED: FUROSEMIDE 40 MG/4 ML VIAL ONE (21:57)
--- NOTE | 2016-07-27 06:25 | EKG Report ---
Stationary ECG Study [facility] Test Date: 07/26/2016 6:01:25 PM Pat Name: ESMER SLAUGHTER Department: Room: 267 Gender: F Group Rooms Coordinator: : 1965 Requested by: Valdo Shore Order Number: [id number] Reading MD: MICHELLE SHRESTHA Intervals [place] Rate: 66 P: 55 MI: 180 QRS: 32 QRSD: 104 T: 1 QT: 452 QTc: 466 Interpretive Statements SINUS RHYTHM POSSIBLE ANTERIOR INFARCT, AGE UNDETERMINED MODERATE ST DEPRESSION Electronically Signed On 07-27-16 15:31:55 CDT by MICHELLE SHRESTHA [email or web address]
--- NOTE | 2016-07-27 08:20 | EKG Report ---
Stationary ECG Study [facility] Test Date: 07/27/2016 8:21:36 AM Pat Name: ESMER SLAUGHTER Department: Room: 267 Gender: F Audio Visual Manager: : 1965 Requested by: Alex Dey Order Number: [id number] Reading MD: MICHELLE SHRESTHA Intervals [place] Rate: 64 P: 56 [place]: 180 QRS: -50 QRSD: 109 T: 103 QT: 440 QTc: 449 Interpretive Statements SINUS RHYTHM MARKED LEFT AXIS DEVIATION POSSIBLE ANTERIOR MYOCARDIAL INFARCTION, OF INDETERMINATE AGE MODERATE T-WAVE ABNORMALITY, CONSIDER LATERAL ISCHEMIA Electronically Signed On 07-28-16 15:10:15 CDT by MICHELLE SHRESTHA [email or web address]
[2016-07-27] MEDS: ISOSORBIDE DINITRATE 10 MG TABLET PO SCH ×3 (09:57→20:56)
[2016-07-27] MEDS: clonazePAM 0.5 MG TABLET PO SCH ×3 (09:57→20:56)
[2016-07-27] MEDS: PANTOPRAZOLE 40 MG TABLET PO SCH (09:58)
[2016-07-27] MEDS: CETIRIZINE 10 MG TABLET PO SCH (09:58)
[2016-07-27] MEDS: FUROSEMIDE 80 MG TABLET PO SCH (09:58)
[2016-07-27] MEDS: NEBIVOLOL 10 MG TABLET PO SCH (09:58)
[2016-07-27] MEDS: LEVOTHYROXINE 75 MCG TABLET PO SCH (09:58)
[2016-07-27] MEDS: amLODIPine 10 MG TABLET PO SCH (09:58)
[2016-07-27] MEDS: traMADol 50 MG TABLET PO SCH ×2 (09:58→20:56)
[2016-07-27] MEDS: GABAPENTIN 300 MG CAPSULE PO SCH ×3 (09:58→20:56)
[2016-07-27] MEDS: FERROUS SULFATE 325 MG TABLET PO SCH (09:58)
[2016-07-27] MEDS: POTASSIUM CHLORIDE 8 MEQ CAPSULE PO SCH (12:50)
[2016-07-27] MEDS: ATORVASTATIN 40 MG TABLET PO SCH (12:50)
--- NOTE | 2016-07-27 14:46 | Hospitalist Progress Note ---
Assessment and Plan (1) CHF (congestive heart failure) Status: Chronic Current Visit: Yes Qualifiers: Congestive heart failure type: combined Congestive heart failure chronicity : chronic Qualified Code(s): I50.42 - Chronic combined systolic (congestive) and diastolic (congestive) heart failure (2) Hypertension Status: Chronic Current Visit: No Qualifiers: Hypertension type: essential hypertension Qualified Code(s): I10 - Essential (primary) hypertension (3) Diabetes Status: Chronic Current Visit: No Qualifiers: Diabetes mellitus type: type 2 Diabetes mellitus complication status: with kidney complications Diabetes mellitus complication detail: with chronic kidney disease Qualified Code(s): E11.22 - Type 2 diabetes mellitus with diabetic chronic kidney disease (4) Obesity Status: Chronic Current Visit: No Hospitalist: Subjective Interval history: This patient was admitted on last night due to shortness of breath and lower extremity swelling. At present she is lying in bed resting comfortably. She mentions that her breathing is back to baseline. She states when she walks extended periods of time she gets more short of breath. Serum creatinine is noted to be 4.9 and she has been followed by nephrology and discussions about renal replacement therapy has been made. Patient is resistant about dialysis is really interested in transplant options. Referrals have been made in the past for renal transplant. Exam - Constitutional Vitals: Period Temp Pulse Resp BP Sys/Loving Pulse Ox Last 24 Hr 96.9 F-98.1 F 63-67 17-22 133-170/57-77 99-100 General appearance: over weight - Head Head exam: Present: normal inspection - Eye Eye exam: Present: EOMI - Respiratory Respiratory exam: Present: clear to auscultation bilaterally - Cardiovascular Cardiovascular exam: Present: regular rate and rhythm - GI/Abdominal GI/Abdominal exam: Present: normal bowel sounds - Extremities Exam Extremities exam: Present: full ROM - Neurological Exam Neurological exam: Present: alert, oriented X3 - Skin Skin exam: Present: other (2+ edema) Results - Labs CBC & BMP: 07/26/16 18:46 07/26/16 18:32
--- NOTE | 2016-07-27 17:47 | ECHO Report ---
Chacha Mejia 07/27/2016 Exam Date: 10:04 Referring Physician: Goldie Espinosa Technologist: JAIRON Age: 51 Ht (in): 69 Wt (lb): 278 FExam [facility] Gender: Echo [id number]: Diabetes, Heart failure, unspecifiedIndications:, Chronic kidney disease, unspecified, Essential (primary) hypertension, Edema, unspecified BP: 165 / 71 HR: 65 SinusRhythm: Technical Quality: IMPRESSIONS Technically adequate study Normal chamber sizes 2-3+ concentric LVH Normal LV systolic function with ejection fraction estimated to be 65% without segmental wall motion normality Aortic sclerosis without stenosis 1+ tricuspid regurgitation with RVSP 33 mmHg plus RAP MEASUREMENTS (Male / Female) Normal Values 2D ECHO LV Diastolic Diameter PLAX 4.4 cm 4.2 - 5.9 / 3.9 - 5.3 cm LV Systolic Diameter PLAX 2.8 cm LV Fractional Shortening PLAX 37.8 % IVS Diastolic Thickness 1.4 cm 0.6 - 1.0 / 0.6 - 0.9 cm LVPW Diastolic Thickness 1.4 cm 0.6 - 1.0 / 0.6 - 0.9 cm RV Internal Dim ED PLAX 4.0 cm Aortic Root Diameter 2.8 cm LA Systolic Diameter LX 3.9 cm 3.0 - 4.0 / 2.7 - 3.8 cm DOPPLER TR Peak Velocity 286.0 cm/s TR Peak Gradient 32.7 mmHg FINDINGS Left Ventricle Normal left ventricular cavity size. Mild left ventricular hypertrophy. Left ventricular ejection fraction is estimated Right Ventricle The right ventricle is normal in size and function. Right Atrium The right atrium is normal in size. Left Atrium The left atrium is mildly enlarged. Mitral Valve Morphologically normal mitral valve without significant stenosis or prolapse. There is no mitral regurgitation. Aortic Valve Morphologically normal aortic valve without significant sclerosis or stenosis. There is no aortic regurgitation. Tricuspid Valve Morphologically normal tricuspid valve. Trace tricuspid valve regurgitation. Tricuspid regurgitation velocities suggest a PAP of 43 mmHg. Pulmonic Valve Morphologically normal pulmonic valve. Mild pulmonary valve regurgitation. Pericardium Normal pericardium without effusion. Aorta Normal ascending aorta dimension. Erich Jiménez (Electronically Signed) 27 July 2016 Final Date: 17:46
[2016-07-27] MEDS: DOXAZOSIN 1 MG TABLET PO SCH (20:56)
[2016-07-27] MEDS ORDERED: INSULIN GLARGINE 100 UNIT/ML SUBCUT SCH (21:00)
[2016-07-28 04:59] LABS: Basophils % 0.3 % (0.0-0.8); Eosinophils # 0.2 10*3/uL (0.0-0.87); Eosinophils % 2.8 % (0.00-10.9); Hematocrit 23.5 VOL% (35.7-47.0); Hemoglobin 7.3 GM/DL (12.0-16.0); Immature Granulocytes % 0.4 %; Immature Granulocytes Absolute 0.03 #; Lymphocytes # 1.3 10*3/uL (1.4-4.0); Lymphocytes % 17.7 % (21.3-54.2); Mean Corpuscular HGB Conc 31.1 GM/DL (32-36); Mean Corpuscular Hemoglobin 24 PG (27-34); Mean Corpuscular Volume 77.3 FL (87-102); Mean Platelet Volume 10.9 FL (9.6-12.0); Monocytes # 0.5 10*3/uL (0.11-0.8); Monocytes % 7.4 % (1.7-12.7); Neutrophils # 5.1 10*3/uL (1.4-7.4); Neutrophils % 71.4 % (38.7-73.9); Platelet Count 274 T/CUMM (130-400); Red Blood Count 3.04 MC/CUMM (3.8-5.5); White Blood Count 7.1 T/CUMM (4-12)
[2016-07-28 05:37] LABS: Calcium 7.5 MG/DL (8.5-10.1); Osmolality,Calculated 311.3 MOS/KG (273-304); Potassium 4.5 MMOL/L (3.5-5.1)
[2016-07-28] MEDS: CETIRIZINE 10 MG TABLET PO SCH (09:57)
[2016-07-28] MEDS: GABAPENTIN 300 MG CAPSULE PO SCH ×3 (09:57→21:10)
[2016-07-28] MEDS: traMADol 50 MG TABLET PO SCH ×2 (09:57→21:10)
[2016-07-28] MEDS: ISOSORBIDE DINITRATE 10 MG TABLET PO SCH ×3 (09:57→21:10)
[2016-07-28] MEDS: clonazePAM 0.5 MG TABLET PO SCH ×3 (09:57→21:10)
[2016-07-28] MEDS: LEVOTHYROXINE 75 MCG TABLET PO SCH (09:57)
[2016-07-28] MEDS: FERROUS SULFATE 325 MG TABLET PO SCH ×2 (09:58→21:10)
[2016-07-28] MEDS: NEBIVOLOL 10 MG TABLET PO SCH (09:58)
[2016-07-28] MEDS: FUROSEMIDE 80 MG TABLET PO SCH (09:58)
[2016-07-28] MEDS: amLODIPine 10 MG TABLET PO SCH (09:58)
[2016-07-28] MEDS: PANTOPRAZOLE 40 MG TABLET PO SCH (09:58)
[2016-07-28] MEDS ORDERED: MAGNESIUM HYDROXIDE SUSP 30 ML UDCUP PO PRN (10:50)
--- NOTE | 2016-07-28 11:09 | Hospitalist Progress Note ---
Assessment and Plan (1) CHF (congestive heart failure) Status: Chronic Assessment and plan: Pt. EF 65%. Pt. currently on PO lasix. UOP stable. Bilateral lower extremity edema is improving. Current Visit: Yes Qualifiers: Congestive heart failure type: combined Congestive heart failure chronicity : chronic Qualified Code(s): I50.42 - Chronic combined systolic (congestive) and diastolic (congestive) heart failure (2) Anemia in chronic kidney disease Status: Acute Assessment and plan: H&H noted at 7.3/23.5. (a decrease from yesterday). Increased patient's iron regimen to TID. Will recheck CBC in am and proceed accordingly. Pt is currently asymptomatic. Current Visit: No (3) Diabetes Status: Chronic Assessment and plan: Pt. started on SSI. Will monitor blood sugars ACHS. Obtain Hgb A1c in am. Current Visit: No Qualifiers: Diabetes mellitus type: type 2 Diabetes mellitus complication status: with kidney complications Diabetes mellitus complication detail: with chronic kidney disease (4) Hypertension Status: Chronic Assessment and plan: Pt. currently stable. Home meds have been restarted. Current Visit: No Qualifiers: Hypertension type: essential hypertension Qualified Code(s): I10 - Essential (primary) hypertension Hospitalist: Subjective Interval history: Pt. seen and examined. Chart reviewed. No acute distress noted. Pt. resting comfortably in bed. Denies shortness of breath or pain. States she feels "much better" today. Will continue to monitor patient. Exam - Constitutional Vitals: Period Temp Pulse Resp BP Sys/Loving Pulse Ox Last 24 Hr 98.0 F-98.5 F 64-70 16-20 130-170/58-77 91-100 General appearance: no acute distress, morbidly obese - Head Head exam: Present: normal inspection, normocephalic - Eye Eye exam: Present: EOMI. Absent: periorbital swelling Pupils: Present: [place]. Absent: dilated - Respiratory Respiratory exam: Present: clear to auscultation bilaterally. Absent: wheezes - Cardiovascular Cardiovascular exam: Present: regular rate and rhythm - GI/Abdominal GI/Abdominal exam: Present: normal bowel sounds, soft. Absent: tenderness - Extremities Exam Extremities exam: Present: normal capillary refill, full ROM, edema - Neurological Exam Neurological exam: Present: alert, oriented X3, normal gait - Psychiatric Psychiatric exam: Present: normal affect, normal mood - Skin Skin exam: Present: normal color, warm, dry Results - Labs CBC & BMP: 07/28/16 03:35 07/28/16 03:35 Lab Results: I have reviewed the past 24 hour labs
[2016-07-28] MEDS ORDERED: INSULIN GLARGINE 100 UNIT/ML SUBCUT SCH (13:10)
[2016-07-28] MEDS: ATORVASTATIN 40 MG TABLET PO SCH (14:20)
[2016-07-28] MEDS: POTASSIUM CHLORIDE 8 MEQ CAPSULE PO SCH (14:20)
[2016-07-28] MEDS ORDERED: FERROUS SULFATE 325 MG TABLET PO SCH (15:00)
[2016-07-28] MEDS: INSULIN LISPRO 100 UNIT/ML SUBCUT SCH ×3 (16:29→21:11)
[2016-07-28] MEDS: DOXAZOSIN 1 MG TABLET PO SCH (21:10)
[2016-07-29 08:26] VITALS: BP 156/83
[2016-07-29 08:38] LABS: Basophils % 0.3 % (0.0-0.8); Eosinophils # 0.2 10*3/uL (0.0-0.87); Eosinophils % 2.8 % (0.00-10.9); Hematocrit 24.3 VOL% (35.7-47.0); Hemoglobin 7.5 GM/DL (12.0-16.0); Immature Granulocytes % 0.5 %; Immature Granulocytes Absolute 0.04 #; Lymphocytes # 1.2 10*3/uL (1.4-4.0); Lymphocytes % 14.2 % (21.3-54.2); Mean Corpuscular HGB Conc 30.9 GM/DL (32-36); Mean Corpuscular Hemoglobin 24 PG (27-34); Mean Corpuscular Volume 77.9 FL (87-102); Mean Platelet Volume 9.9 FL (9.6-12.0); Monocytes # 0.6 10*3/uL (0.11-0.8); Monocytes % 6.4 % (1.7-12.7); Neutrophils # 6.6 10*3/uL (1.4-7.4); Neutrophils % 75.8 % (38.7-73.9); Platelet Count 249 T/CUMM (130-400); Red Blood Count 3.12 MC/CUMM (3.8-5.5); Red Cell Distribution Width 16.9 % (9.3-17.3); White Blood Count 8.6 T/CUMM (4-12)
[2016-07-29 09:02] LABS: Magnesium 2.2 MG/DL (1.8-2.4); Osmolality,Calculated 310.3 MOS/KG (273-304); Potassium 4.9 MMOL/L (3.5-5.1)
[2016-07-29] MEDS: INSULIN LISPRO 100 UNIT/ML SUBCUT SCH (09:21)
[2016-07-29] MEDS: FUROSEMIDE 80 MG TABLET PO SCH (09:22)
[2016-07-29] MEDS: CETIRIZINE 10 MG TABLET PO SCH (09:22)
[2016-07-29] MEDS: ISOSORBIDE DINITRATE 10 MG TABLET PO SCH (09:22)
[2016-07-29] MEDS: NEBIVOLOL 10 MG TABLET PO SCH (09:22)
[2016-07-29] MEDS: GABAPENTIN 300 MG CAPSULE PO SCH (09:22)
[2016-07-29] MEDS: clonazePAM 0.5 MG TABLET PO SCH (09:22)
[2016-07-29] MEDS: amLODIPine 10 MG TABLET PO SCH (09:22)
[2016-07-29] MEDS: PANTOPRAZOLE 40 MG TABLET PO SCH (09:22)
[2016-07-29] MEDS: LEVOTHYROXINE 75 MCG TABLET PO SCH (09:22)
[2016-07-29] MEDS: FERROUS SULFATE 325 MG TABLET PO SCH (09:22)
[2016-07-29] MEDS: traMADol 50 MG TABLET PO SCH (09:23)
--- NOTE | 2016-07-29 09:45 | Discharge Summary ---
<Gaviota Jaquez - Last Filed: 07/29/16 10:06> Hospital Course - Hospital Course Hospital Course: Ms. 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 Patient reported that shortness of breath had associated wheezing. The shortness of breath worsened and she began to have some edema of the bilateral lower extremities and gained about 2-3 lbs. in a 24 hr period. Patient also reported chest pain that resolved itself. CXR revealed cardiomegaly with miminal interstital shunt vascularity. Initial workup revealed elevated bun/creatinine (74/4.80) and negative tropoinins. The patient was admitted for further evaluation and treatment. Pt. had echocardiogram performed which showed an EF of 65%. Pt. was treated with IV lasix and and started on oral regimen. Pt's shortness of breath and edema improved. Today, the patient is stable for discharge. Pt. has been followed by nephrology in the outpatient setting for renal failure and she is encouraged to follow up. Pt. will be instructed to follow up with primary care provider for management of diabetes and evaluation post hospital stay. Diagnosis - Discharge Diagnosis (1) CHF (congestive heart failure) Status: Chronic (2) Anemia in chronic kidney disease Status: Acute (3) Diabetes Status: Chronic (4) Hypertension Status: Chronic Discharge Plan - Discharge Data Disposition: Disch To Home/Self Care - Discharge Medications Continue Albuterol Sulfate [Ventolin HFA] 2 puff INH Q6H PRN PRN Reason: Shortness Of Breath/Wheezing Atorvastatin [Lipitor] 40 mg PO 1200 Furosemide Tab [Lasix Tab] 80 mg PO QAM Isosorbide Dinitrate 30 mg PO TID Nebivolol HCl [Bystolic] 20 mg PO QAM Methocarbamol Tab [Robaxin Tab] 750 mg PO TID PRN PRN Reason: Pain Insulin Aspart [NovoLOG] See Protocol SUBCUT TID Levothyroxine Tab [Synthroid Tab] 75 mcg PO QAM Potassium Chloride 8 meq PO 1200 Cetirizine HCl [Cetirizine Tab] 10 mg PO QAM Pantoprazole Tab [Protonix Tab] 40 mg PO QAM amLODIPine [Norvasc] 10 mg PO QAM Doxazosin Mesylate 1 mg PO BEDTIME Gabapentin 300 mg PO TID Tramadol HCl [Tramadol Tab] 50 mg PO BID hydrALAZINE TAB [Apresoline Tab] 100 mg PO TID #90 tablet cloNIDine TAB [Catapres Tab] 0.3 mg PO TID Albuterol Sulfate [Albuterol Neb] 2.5 mg RESP TX Q8H PRN PRN Reason: Shortness Of Breath Insulin Glargine,Hum.rec.anlog [Toujeo SoloStar] 45 unit SUBCUT BEDTIME Ferrous Sulfate 325 mg PO QAM clonazePAM TAB [KlonoPIN] 0.5 mg PO TID Nitroglycerin [Nitromist] 1 spray TRANSLING Q5M PRN #4 gm PRN Reason: Chest Pain - Follow Up or Referral - Forms/Instructions Exam - Constitutional Vitals: Period Temp Pulse Resp BP Sys/Loving Pulse Ox Last 24 Hr 98.1 F-99 F 63-70 16-20 119-158/61-83 95-100 Discharge Results Procedures and tests throughout hospitalization: Pending Orders 07/26/16 20:33 Blood Culture Stat Labs on day of discharge: Labs from last 24 hours 07/29/16 07/29/16 07/29/16 08:21 08:21 07:29 WBC 8.6 RBC 3.12 L Hgb 7.5 L Hct 24.3 L MCV 77.9 L MCH 24 L MCHC 30.9 L RDW 16.9 Plt Count 249 MPV 9.9 Neut % (Auto) 75.8 H Lymph % (Auto) 14.2 L [place] % (Auto) 6.4 Eos % (Auto) 2.8 Baso % (Auto) 0.3 Neut # (Auto) 6.6 Lymph # (Auto) 1.2 L [place] # (Auto) 0.6 Eos # (Auto) 0.2 Baso # (Auto) 0.0 Immature Gran % 0.5 Nucleated RBC % 0.0 Immature Gran # 0.04 Nucleated RBCs # 0.00 Sodium 141 Potassium 4.9 Chloride 107 Carbon Dioxide 25 Anion Gap 13.9 BUN 88 H Creatinine 5.30 H GFR Calculation 14 BUN/Creatinine Ratio 16.00 Glucose 161 H POC Glucose 164 H Hemoglobin A1c Calculated Osmolality 310.3 H Calcium 8.0 L Magnesium 2.2 07/29/16 07/28/16 07/28/16 04:56 19:44 15:59 WBC RBC Hgb Hct MCV MCH MCHC RDW Plt Count MPV Neut % (Auto) Lymph % (Auto) [place] % (Auto) Eos % (Auto) Baso % (Auto) Neut # (Auto) Lymph # (Auto) [place] # (Auto) Eos # (Auto) Baso # (Auto) Immature Gran % Nucleated RBC % Immature Gran # Nucleated RBCs # Sodium Potassium Chloride Carbon Dioxide Anion Gap BUN Creatinine GFR Calculation BUN/Creatinine Ratio Glucose POC Glucose 243 H 337 H Hemoglobin A1c 9.9 H Calculated Osmolality Calcium Magnesium 07/28/16 12:03 WBC RBC Hgb Hct MCV MCH MCHC RDW Plt Count MPV Neut % (Auto) Lymph % (Auto) [place] % (Auto) Eos % (Auto) Baso % (Auto) Neut # (Auto) Lymph # (Auto) [place] # (Auto) Eos # (Auto) Baso # (Auto) Immature Gran % Nucleated RBC % Immature Gran # Nucleated RBCs # Sodium Potassium Chloride Carbon Dioxide Anion Gap BUN Creatinine GFR Calculation BUN/Creatinine Ratio Glucose POC Glucose 216 H Hemoglobin A1c Calculated Osmolality Calcium Magnesium Preliminary micro results at discharge 07/26/16 20:33 Blood Culture - Preliminary Blood No growth at 1 day 07/26/16 20:28 Blood Culture - Preliminary Blood No growth at 1 day DS: Provider Date of admission: 07/26/16 21:42 Primary care physician: . No PCP Attending physician on admission: Alex Dey MD Consults: 07/26/16 23:00 Consult to Pastoral Services [CONS] Routine Comment: Pastoral Screen: Request Fire Chief'S Aide Visit Pastoral Screen Source of Request: Patient Discharging clinician: Gaviota Jaquez NP <Carmen Avelar - Last Filed: 07/29/16 11:49> Hospital Course - Time spent with patient Time with patient DS: Greater than 30 minutes (Total discharge time for this patient, including [id number] time, clinical documentation, medication reconciliation, and discharge planning was 41 minutes.) Diagnosis - Discharge Diagnosis (1) Lower extremity edema Status: Resolved (2) Anemia in chronic kidney disease Status: Acute (3) Insulin dependent diabetes mellitus Status: Chronic (4) Obstructive sleep apnea on CPAP Status: Chronic (5) Chronic kidney disease, stage IV (severe) Status: Chronic (6) Morbid obesity Status: Chronic (7) Hypertension Status: Chronic (8) Acute on chronic diastolic heart failure Status: Acute (9) Hypothyroidism Status: Chronic Discharge Plan - Discharge Data Condition at Discharge: Stable Discharge Diet: advance to your usual diet Activity: resume usual activities as tolerated Hygiene: no restrictions Weight Bearing at Discharge: full weight bearing Driving: no restrictions Contact your physician if you experience:: fever over 101, Shortness of breath - Forms/Instructions Additional Discharge Instructions: Follow-up with primary care physician in 1-2 weeks. DS: Provider Expected date of discharge: 07/29/16
== END 2016-07-29 12:31 | disposition home or self-care (01) | DRG 291 ==
LOC: N.ED 17:45 → SUATTDRO 21:42 → N.EDINP 21:42 → N.TELES 22:20
PROVIDERS: ADMIT Internal Medicine Infectious Disease; ATTEND Family Medicine

== ENCOUNTER 2016-12-15 11:18 | Inpatient (IN) ==
[2016-12-15] MEDS ORDERED: FUROSEMIDE 40 MG/4 ML VIAL IV STA (11:46)
[2016-12-15] MEDS ORDERED: ALBUTEROL 2.5 MG/3 ML NEB RESP TX ONE (12:02)
[2016-12-15] MEDS: ALBUTEROL 2.5 MG/3 ML NEB RESP TX SCH (12:40)
[2016-12-15] MEDS ORDERED: FUROSEMIDE 40 MG/4 ML VIAL ONE (13:31)
[2016-12-15] MEDS ORDERED: ALBUTEROL 2.5 MG/3 ML NEB RESP TX PRN (13:32)
[2016-12-15] MEDS ORDERED: ONDANSETRON 4 MG/2 ML VIAL IV PRN (13:35)
[2016-12-15] MEDS ORDERED: DEXTROSE 50% 25 GM/50 ML VIAL IV PRN (13:35)
[2016-12-15] MEDS ORDERED: GLUCAGON 1 MG VIAL IM PRN (13:35)
[2016-12-15] MEDS ORDERED: FUROSEMIDE INJ 240 MG in SODIUM CHLORIDE 0.9% 50 ML IV ONE (15:27)
[2016-12-15] MEDS: ENOXAPARIN 30 MG/0.3 ML SYRINGE SUBCUT SCH (17:36)
[2016-12-15] MEDS: DOXAZOSIN 1 MG TABLET PO SCH (20:55)
[2016-12-15] MEDS: clonazePAM 0.5 MG TABLET PO SCH (20:56)
[2016-12-15] MEDS: ALBUTEROL/IPRATROPIUM 3 ML NEB RESP TX SCH (20:57)
[2016-12-16] MEDS: ALBUTEROL/IPRATROPIUM 3 ML NEB RESP TX SCH ×4 (01:09→19:52)
[2016-12-16 05:16] LABS: Basophils % 0.3 % (0.0-0.8); Eosinophils # 0.1 10*3/uL (0.0-0.87); Eosinophils % 0.8 % (0.00-10.9); Hematocrit 22.2 VOL% (35.7-47.0); Immature Granulocytes % 0.5 %; Immature Granulocytes Absolute 0.05 #; Lymphocytes % 9.8 % (21.3-54.2); Mean Corpuscular HGB Conc 31.5 GM/DL (32-36); Mean Corpuscular Hemoglobin 24 PG (27-34); Mean Platelet Volume 9.7 FL (9.6-12.0); Monocytes # 0.5 10*3/uL (0.11-0.8); Monocytes % 5.1 % (1.7-12.7); Neutrophils # 8.9 10*3/uL (1.4-7.4); Neutrophils % 83.5 % (38.7-73.9); Platelet Count 266 T/CUMM (130-400); Red Blood Count 2.92 MC/CUMM (3.8-5.5); White Blood Count 10.6 T/CUMM (4-12)
[2016-12-16 05:56] LABS: Magnesium 2.1 MG/DL (1.8-2.4); Risk Ratio 3.91; Thyroid Stimulating Hormone 1.09 uIU/ml (0.358-3.74); VLDL CHOLESTEROL 20.4 MG/DL
[2016-12-16 06:07] LABS: Albumin 3.2 G/DL (3.4-5.0); Bilirubin,Total 1.1 MG/DL (0.2-1.0); Calcium 7.9 MG/DL (8.5-10.1); Potassium 4.9 MMOL/L (3.5-5.1); Total Protein 7.4 G/DL (6.4-8.3)
[2016-12-16] MEDS: amLODIPine 10 MG TABLET PO SCH (10:04)
[2016-12-16] MEDS: clonazePAM 0.5 MG TABLET PO SCH ×3 (10:04→20:42)
[2016-12-16] MEDS: PANTOPRAZOLE 40 MG TABLET PO SCH (10:04)
[2016-12-16] MEDS: LEVOTHYROXINE 75 MCG TABLET PO SCH (10:05)
[2016-12-16 11:01] LABS: % Iron Saturation 10.2 % (18-50)
[2016-12-16] MEDS: INSULIN LISPRO 100 UNIT/ML SUBCUT SCH ×4 (11:30→20:41)
[2016-12-16] MEDS ORDERED: GLUCAGON 1 MG VIAL IM PRN (11:57)
[2016-12-16] MEDS ORDERED: DEXTROSE 50% 25 GM/50 ML VIAL IV PRN (11:57)
[2016-12-16] MEDS ORDERED: cloNIDine 0.1 MG TABLET PO SCH (12:00)
[2016-12-16] MEDS: ATORVASTATIN 40 MG TABLET PO SCH (12:54)
[2016-12-16] MEDS: ENOXAPARIN 30 MG/0.3 ML SYRINGE SUBCUT SCH (15:03)
[2016-12-16] MEDS: FUROSEMIDE 80 MG TABLET PO SCH (16:50)
[2016-12-16] MEDS: INSULIN GLARGINE 100 UNIT/ML SUBCUT SCH (20:41)
[2016-12-16] MEDS: DOXAZOSIN 1 MG TABLET PO SCH (20:41)
[2016-12-17 04:40] LABS: Calcium 7.7 MG/DL (8.5-10.1); Magnesium 2.1 MG/DL (1.8-2.4)
[2016-12-17] MEDS: LEVOTHYROXINE 75 MCG TABLET PO SCH (06:27)
[2016-12-17] MEDS: INSULIN LISPRO 100 UNIT/ML SUBCUT SCH ×4 (07:19→20:42)
[2016-12-17] MEDS ORDERED: DARBEPOETIN ALFA 100 MCG/ML VIAL SUBCUT ONE (07:31)
[2016-12-17] MEDS: ALBUTEROL/IPRATROPIUM 3 ML NEB RESP TX SCH ×4 (08:21→20:29)
[2016-12-17] MEDS: IRON SUCROSE 300 MG in SODIUM CHLORIDE 0.9% 100 ML IV ONE ×2 (08:29→10:05)
[2016-12-17] MEDS ORDERED: cloNIDine 0.1 MG TABLET PO SCH (09:00)
[2016-12-17] MEDS: amLODIPine 10 MG TABLET PO SCH (10:28)
[2016-12-17] MEDS: clonazePAM 0.5 MG TABLET PO SCH ×3 (10:29→20:43)
[2016-12-17] MEDS: FUROSEMIDE 80 MG TABLET PO SCH (10:29)
[2016-12-17] MEDS: PANTOPRAZOLE 40 MG TABLET PO SCH (10:29)
[2016-12-17] MEDS ORDERED: FUROSEMIDE 20 MG/2 ML VIAL ONE (13:27)
[2016-12-17] MEDS ORDERED: FUROSEMIDE 40 MG/4 ML VIAL IV ONE (13:31)
[2016-12-17 13:47] LABS: Basophils # 0.1 10*3/uL (0.0-0.2); Basophils % 0.4 % (0.0-0.8); Eosinophils # 0.1 10*3/uL (0.0-0.87); Eosinophils % 0.8 % (0.00-10.9); Hemoglobin 7.7 GM/DL (12.0-16.0); Immature Granulocytes % 0.5 %; Immature Granulocytes Absolute 0.06 #; Lymphocytes # 0.8 10*3/uL (1.4-4.0); Lymphocytes % 6.1 % (21.3-54.2); Mean Corpuscular HGB Conc 30.8 GM/DL (32-36); Mean Corpuscular Hemoglobin 24 PG (27-34); Mean Corpuscular Volume 76.7 FL (87-102); Mean Platelet Volume 10.5 FL (9.6-12.0); Monocytes # 0.4 10*3/uL (0.11-0.8); Monocytes % 2.9 % (1.7-12.7); Neutrophils # 11.1 10*3/uL (1.4-7.4); Neutrophils % 89.3 % (38.7-73.9); Platelet Count 288 T/CUMM (130-400); Red Blood Count 3.26 MC/CUMM (3.8-5.5); Red Cell Distribution Width 18.2 % (9.3-17.3); White Blood Count 12.4 T/CUMM (4-12)
[2016-12-17] MEDS ORDERED: FUROSEMIDE 40 MG/4 ML VIAL IV SCH (14:00)
[2016-12-17 14:02] LABS: Alanine Aminotransferase 15 U/L (13-56); Albumin 3.5 G/DL (3.4-5.0); Alkaline Phosphatase 86 U/L (45-117); Aspartate Amino Transferase 8 U/L (0-37); Blood Urea Nitrogen 79 MG/DL (7-18); Calcium 7.8 MG/DL (8.5-10.1); Glucose 340 MG/DL (74-106); Osmolality,Calculated 311.7 MOS/KG (273-304); Potassium 4.8 MMOL/L (3.5-5.1); Sodium 138 MMOL/L (136-145); Total Protein 8.2 G/DL (6.4-8.3); Troponin I Only < 0.015 NG/ML (0.00-0.045)
[2016-12-17 14:16] LABS: ABG Base Excess 1.1 MMOL/L (-2.5-2.5); ABG HCO3 25.4 MMOL/L (20-26); ABG Oxygen Saturation 99.7 % (95-100); ABG PCO2 46.7 MM HG (35-48); ABG PH 7.365 (7.35-7.45); ABG TCO2 25.2 MMOL/L (23-27); Allen Test Positive
[2016-12-17] MEDS ORDERED: NITROGLYCERIN 2% OINT 1 INCH/GM PACK TOP ONE (14:34)
[2016-12-17] MEDS: ATORVASTATIN 40 MG TABLET PO SCH (14:43)
[2016-12-17] MEDS: ENOXAPARIN 30 MG/0.3 ML SYRINGE SUBCUT SCH (14:44)
[2016-12-17] MEDS ORDERED: metOLazone 5 MG TABLET PO SCH (15:30)
[2016-12-17] MEDS ORDERED: FUROSEMIDE INJ 240 MG in SODIUM CHLORIDE 0.9% 50 ML IV ONE (16:00)
[2016-12-17] MEDS ORDERED: cloNIDine 0.1 MG TABLET PO ONE (16:06)
[2016-12-17] MEDS: NITROGLYCERIN 2% OINT 1 INCH/GM PACK TOP SCH ×2 (18:22→23:54)
[2016-12-17] MEDS: cloNIDine 0.1 MG TABLET PO SCH (20:41)
[2016-12-17] MEDS: DOXAZOSIN 1 MG TABLET PO SCH (20:41)
[2016-12-17] MEDS: INSULIN GLARGINE 100 UNIT/ML SUBCUT SCH (20:42)
[2016-12-18] MEDS: ALBUTEROL/IPRATROPIUM 3 ML NEB RESP TX SCH ×5 (01:25→19:05)
[2016-12-18 09:54] LABS: Calcium 7.7 MG/DL (8.5-10.1); Magnesium 2.2 MG/DL (1.8-2.4); Osmolality,Calculated 311.8 MOS/KG (273-304); Potassium 4.3 MMOL/L (3.5-5.1)
[2016-12-18] MEDS: NITROGLYCERIN 2% OINT 1 INCH/GM PACK TOP SCH ×3 (10:16→17:04)
[2016-12-18] MEDS: LEVOTHYROXINE 75 MCG TABLET PO SCH (10:16)
[2016-12-18] MEDS: INSULIN LISPRO 100 UNIT/ML SUBCUT SCH ×4 (10:16→21:46)
[2016-12-18] MEDS: clonazePAM 0.5 MG TABLET PO SCH ×3 (10:17→21:46)
[2016-12-18] MEDS: cloNIDine 0.1 MG TABLET PO SCH ×3 (10:17→21:46)
[2016-12-18] MEDS: FUROSEMIDE 40 MG/4 ML VIAL IV SCH ×3 (10:17→16:56)
[2016-12-18] MEDS: amLODIPine 10 MG TABLET PO SCH (10:18)
[2016-12-18] MEDS: PANTOPRAZOLE 40 MG TABLET PO SCH (10:18)
[2016-12-18] MEDS: metOLazone 5 MG TABLET PO SCH (10:28)
[2016-12-18] MEDS: ATORVASTATIN 40 MG TABLET PO SCH (11:15)
[2016-12-18 11:25] LABS: Basophils % 0.3 % (0.0-0.8); Eosinophils # 0.2 10*3/uL (0.0-0.87); Eosinophils % 2.4 % (0.00-10.9); Hematocrit 21.9 VOL% (35.7-47.0); Hemoglobin 6.8 GM/DL (12.0-16.0); Immature Granulocytes % 0.5 %; Immature Granulocytes Absolute 0.04 #; Lymphocytes # 1.1 10*3/uL (1.4-4.0); Lymphocytes % 12.8 % (21.3-54.2); Mean Corpuscular HGB Conc 31.1 GM/DL (32-36); Mean Corpuscular Hemoglobin 24 PG (27-34); Mean Corpuscular Volume 77.1 FL (87-102); Mean Platelet Volume 10.2 FL (9.6-12.0); Monocytes # 0.5 10*3/uL (0.11-0.8); Monocytes % 5.4 % (1.7-12.7); Neutrophils % 78.6 % (38.7-73.9); Platelet Count 250 T/CUMM (130-400); Red Blood Count 2.84 MC/CUMM (3.8-5.5); Red Cell Distribution Width 18.1 % (9.3-17.3); White Blood Count 8.9 T/CUMM (4-12)
[2016-12-18] MEDS: ENOXAPARIN 30 MG/0.3 ML SYRINGE SUBCUT SCH (14:53)
[2016-12-18] MEDS: DOXAZOSIN 1 MG TABLET PO SCH (21:46)
[2016-12-18] MEDS: INSULIN GLARGINE 100 UNIT/ML SUBCUT SCH (21:46)
[2016-12-19] MEDS: ALBUTEROL/IPRATROPIUM 3 ML NEB RESP TX SCH ×4 (00:08→20:56)
[2016-12-19] MEDS: NITROGLYCERIN 2% OINT 1 INCH/GM PACK TOP SCH ×5 (03:22→23:28)
[2016-12-19] MEDS: LEVOTHYROXINE 75 MCG TABLET PO SCH (07:09)
[2016-12-19] MEDS: INSULIN LISPRO 100 UNIT/ML SUBCUT SCH ×4 (08:31→22:07)
[2016-12-19] MEDS: metOLazone 5 MG TABLET PO SCH (08:32)
[2016-12-19] MEDS: amLODIPine 10 MG TABLET PO SCH (08:33)
[2016-12-19] MEDS: PANTOPRAZOLE 40 MG TABLET PO SCH (08:33)
[2016-12-19] MEDS: clonazePAM 0.5 MG TABLET PO SCH ×3 (08:34→22:05)
[2016-12-19] MEDS: FUROSEMIDE 40 MG/4 ML VIAL IV SCH ×2 (08:35→18:34)
[2016-12-19] MEDS ORDERED: IRON SUCROSE 300 MG in SODIUM CHLORIDE 0.9% 100 ML IV ONE (09:00)
[2016-12-19] MEDS: ATORVASTATIN 40 MG TABLET PO SCH (13:04)
[2016-12-19] MEDS: ENOXAPARIN 30 MG/0.3 ML SYRINGE SUBCUT SCH (14:45)
[2016-12-19] MEDS: ISOSORBIDE DINITRATE 20 MG TABLET PO SCH ×2 (22:05→23:21)
[2016-12-19] MEDS: DOXAZOSIN 1 MG TABLET PO SCH (22:05)
[2016-12-19] MEDS: INSULIN GLARGINE 100 UNIT/ML SUBCUT SCH (22:07)
[2016-12-19] MEDS: BECLOMETHASONE 40 MCG/PUFF INHALER 8.7 GM INH SCH (23:28)
[2016-12-19] MEDS: MONTELUKAST 10 MG TABLET PO SCH (23:28)
[2016-12-19] MEDS: ALBUTEROL 2.5 MG/3 ML NEB RESP TX SCH (23:45)
[2016-12-20] MEDS: ALBUTEROL 2.5 MG/3 ML NEB RESP TX SCH (00:14)
[2016-12-20] MEDS: ALBUTEROL/IPRATROPIUM 3 ML NEB RESP TX SCH ×4 (04:43→19:37)
[2016-12-20 05:56] LABS: Basophils % 0.4 % (0.0-0.8); Eosinophils # 0.3 10*3/uL (0.0-0.87); Eosinophils % 2.6 % (0.00-10.9); Hematocrit 28.7 VOL% (35.7-47.0); Hemoglobin 9.5 GM/DL (12.0-16.0); Immature Granulocytes % 0.7 %; Immature Granulocytes Absolute 0.07 #; Lymphocytes % 9.6 % (21.3-54.2); Mean Corpuscular HGB Conc 33.1 GM/DL (32-36); Mean Corpuscular Hemoglobin 26 PG (27-34); Mean Corpuscular Volume 76.9 FL (87-102); Mean Platelet Volume 10.3 FL (9.6-12.0); Monocytes # 0.6 10*3/uL (0.11-0.8); Monocytes % 6.2 % (1.7-12.7); NRBC # 0.02 10*3/uL; Neutrophils % 80.5 % (38.7-73.9); Platelet Count 283 T/CUMM (130-400); Red Blood Count 3.73 MC/CUMM (3.8-5.5); Red Cell Distribution Width 17.3 % (9.3-17.3); White Blood Count 9.9 T/CUMM (4-12)
[2016-12-20 06:32] LABS: Calcium 7.8 MG/DL (8.5-10.1); Osmolality,Calculated 312.4 MOS/KG (273-304); Potassium 4.4 MMOL/L (3.5-5.1)
[2016-12-20] MEDS: NITROGLYCERIN 2% OINT 1 INCH/GM PACK TOP SCH ×2 (06:39→16:41)
[2016-12-20] MEDS: LEVOTHYROXINE 75 MCG TABLET PO SCH (06:39)
[2016-12-20] MEDS ORDERED: IRON SUCROSE 300 MG in SODIUM CHLORIDE 0.9% 100 ML IV ONE (08:38)
[2016-12-20] MEDS: FUROSEMIDE 40 MG/4 ML VIAL IV SCH ×2 (09:33→15:53)
[2016-12-20] MEDS: clonazePAM 0.5 MG TABLET PO SCH ×3 (09:35→20:27)
[2016-12-20] MEDS: sitaGLIPtin 25 MG TABLET PO SCH (09:35)
[2016-12-20] MEDS: amLODIPine 10 MG TABLET PO SCH (09:36)
[2016-12-20] MEDS: ISOSORBIDE DINITRATE 20 MG TABLET PO SCH ×3 (09:36→20:24)
[2016-12-20] MEDS: PANTOPRAZOLE 40 MG TABLET PO SCH (09:36)
[2016-12-20] MEDS: metOLazone 5 MG TABLET PO SCH (09:36)
[2016-12-20] MEDS: DOXAZOSIN 1 MG TABLET PO SCH ×2 (09:36→20:25)
[2016-12-20] MEDS: INSULIN LISPRO 100 UNIT/ML SUBCUT SCH ×4 (09:37→20:27)
[2016-12-20] MEDS: BECLOMETHASONE 40 MCG/PUFF INHALER 8.7 GM INH SCH ×2 (10:05→20:30)
[2016-12-20] MEDS: ATORVASTATIN 40 MG TABLET PO SCH (13:30)
[2016-12-20] MEDS: ENOXAPARIN 30 MG/0.3 ML SYRINGE SUBCUT SCH (15:53)
[2016-12-20] MEDS: MONTELUKAST 10 MG TABLET PO SCH (20:25)
[2016-12-20] MEDS: INSULIN GLARGINE 100 UNIT/ML SUBCUT SCH (20:27)
[2016-12-21] MEDS: ALBUTEROL/IPRATROPIUM 3 ML NEB RESP TX SCH ×3 (02:14→12:00)
[2016-12-21 06:21] LABS: Calcium 7.6 MG/DL (8.5-10.1); Osmolality,Calculated 308.3 MOS/KG (273-304); Potassium 3.9 MMOL/L (3.5-5.1)
[2016-12-21] MEDS: LEVOTHYROXINE 75 MCG TABLET PO SCH (06:24)
[2016-12-21] MEDS: amLODIPine 10 MG TABLET PO SCH (09:35)
[2016-12-21] MEDS: DOXAZOSIN 1 MG TABLET PO SCH (09:38)
[2016-12-21] MEDS: ISOSORBIDE DINITRATE 20 MG TABLET PO SCH (09:38)
[2016-12-21] MEDS: sitaGLIPtin 25 MG TABLET PO SCH (09:39)
[2016-12-21] MEDS: metOLazone 5 MG TABLET PO SCH (09:39)
[2016-12-21] MEDS: FUROSEMIDE 40 MG/4 ML VIAL IV SCH (09:39)
[2016-12-21] MEDS: PANTOPRAZOLE 40 MG TABLET PO SCH (09:39)
[2016-12-21] MEDS: clonazePAM 0.5 MG TABLET PO SCH (09:39)
[2016-12-21] MEDS: BECLOMETHASONE 40 MCG/PUFF INHALER 8.7 GM INH SCH (09:47)
[2016-12-21] MEDS: INSULIN LISPRO 100 UNIT/ML SUBCUT SCH ×2 (09:47→12:17)
[2016-12-21] MEDS: ATORVASTATIN 40 MG TABLET PO SCH (11:40)
[2016-12-21 12:12] VITALS: BP 148/69
[2016-12-21] MEDS ORDERED: FUROSEMIDE 80 MG TABLET PO SCH (16:00)
== END 2016-12-21 15:15 | disposition home or self-care (01) | DRG 291 ==
LOC: EDUNIT# → N.ED 11:18 → SUATTDRO 12:37 → N.EDINP 12:37 → N.4E 14:56 → N.CC 12-17 13:41 → N.TELEN 12-20 21:49
PROVIDERS: ADMIT Internal Medicine; ATTEND Internal Medicine Nephrology

== ENCOUNTER 2017-12-02 06:38 | Observation (INO) ==
[2017-12-02] MEDS ORDERED: ASPIRIN 325 MG TABLET PO STA (06:55)
[2017-12-02] MEDS ORDERED: ENOXAPARIN 120 MG/0.8 ML SYRINGE SUBCUT STA (07:08)
[2017-12-02 07:10] LABS: Basophils % 0.2 % (0.0-0.8); Hematocrit 26.9 VOL% (35.7-47.0); Hemoglobin 8.4 GM/DL (12.0-16.0); Immature Granulocytes % 0.6 %; Immature Granulocytes Absolute 0.08 #; Lymphocytes # 0.4 10*3/uL (1.4-4.0); Lymphocytes % 3.1 % (21.3-54.2); Mean Corpuscular HGB Conc 31.2 GM/DL (32-36); Mean Corpuscular Hemoglobin 25 PG (27-34); Mean Corpuscular Volume 79.8 FL (87-102); Mean Platelet Volume 10.1 FL (9.6-12.0); Monocytes # 0.4 10*3/uL (0.11-0.8); Monocytes % 3.3 % (1.7-12.7); Neutrophils # 11.9 10*3/uL (1.4-7.4); Neutrophils % 92.8 % (38.7-73.9); Platelet Count 266 T/CUMM (130-400); Red Blood Count 3.37 MC/CUMM (3.8-5.5); Red Cell Distribution Width 17.2 % (9.3-17.3); White Blood Count 12.9 T/CUMM (4-12)
[2017-12-02 07:16] LABS: PT Patient Result 10.8 SECS; Partial Thromboplastin Time 26.2 SECS (0-40)
[2017-12-02 07:22] LABS: Alanine Aminotransferase 15 U/L (13-56); Albumin 3.8 G/DL (3.4-5.0); Alkaline Phosphatase 83 U/L (45-117); Aspartate Amino Transferase 11 U/L (0-37); Bilirubin,Total < 0.39 MG/DL (0.2-1.0); Blood Urea Nitrogen 90 MG/DL (7-18); Calcium 7.9 MG/DL (8.5-10.1); Glucose 340 MG/DL (74-106); Osmolality,Calculated 326.8 MOS/KG (273-304); Sodium 144 MMOL/L (136-145); Total Protein 7.9 G/DL (6.4-8.3)
[2017-12-02 07:31] LABS: Hypochromasia 1+; Lymphocytes 7 % (20-55); Ovalocytes Slight; Platelet Estimate Adequate; Segmented Neutrophils 91 % (50-85); Total Cells Counted 100
[2017-12-02 07:37] LABS: Apearance,Urine CLEAR (Clear); Bilirubin,Urine Negative (Negative); Blood, Urine Small mg/dL (Negative); Glucose,Urine (UA) 150 mg/dL (Negative); Ketones,Urine Negative (Negative); Mucus,Urine Occasional /LPF (Occasional); Nitrite,Urine Negative (Negative); Protein,Urine 100 MG/DL; RBC,Urine 6 /HPF (0-4); Squamous Epithelial Cell,Urine Occasional /HPF (0-10); Urine Color Straw (Yellow); Urine Urobilinogen < 2.0 EU/DL (0.2-1.0); WBC,Urine 1 /HPF (0-6)
[2017-12-02 07:58] LABS: Barbiturates Screen,Urine Negative (Negative); Benzodiazepines Screen,Urine Negative (Negative); Cannabinoid Screen,Urine Negative (Negative); Opiate Screen,Urine Negative (Negative); Phencyclidine Screen,Urine Negative (Negative)
[2017-12-02] MEDS ORDERED: ONDANSETRON 4 MG/2 ML VIAL IV PRN (08:55)
[2017-12-02] MEDS ORDERED: ACETAMINOPHEN 325 MG TABLET PO PRN (08:55)
[2017-12-02] MEDS ORDERED: GLUCAGON 1 MG VIAL IM PRN (08:55)
[2017-12-02] MEDS ORDERED: DEXTROSE 50% 25 GM/50 ML VIAL IV PRN (08:55)
[2017-12-02] MEDS ORDERED: SODIUM CHLORIDE 0.9% 1,000 ML IV SCH (09:00)
[2017-12-02] MEDS ORDERED: ALBUTEROL 2.5 MG/3 ML NEB RESP TX PRN (09:01)
[2017-12-02] MEDS ORDERED: INFLUENZA VIRUS VACCINE 0.5 ML SYRINGE IM ONE (11:30)
[2017-12-02] MEDS ORDERED: ATORVASTATIN 40 MG TABLET PO SCH (12:00)
[2017-12-02] MEDS: NEBIVOLOL 10 MG TABLET PO SCH ×2 (12:48→21:09)
[2017-12-02] MEDS: PANTOPRAZOLE 40 MG TABLET PO SCH (12:48)
[2017-12-02] MEDS: FUROSEMIDE 80 MG TABLET PO SCH (12:49)
[2017-12-02] MEDS: INSULIN LISPRO 100 UNIT/ML SUBCUT SCH ×3 (12:49→21:09)
[2017-12-02] MEDS ORDERED: clonazePAM 0.5 MG TABLET PO SCH (15:00)
[2017-12-02] MEDS: GABAPENTIN 300 MG CAPSULE PO SCH ×2 (15:43→21:09)
[2017-12-02] MEDS: ISOSORBIDE DINITRATE 10 MG TABLET PO SCH ×2 (15:43→21:09)
[2017-12-02] MEDS ORDERED: FUROSEMIDE 100 MG/10 ML VIAL ONE (15:45)
[2017-12-02] MEDS ORDERED: FUROSEMIDE 40 MG/4 ML VIAL IV ONE (15:55)
[2017-12-02] MEDS ORDERED: clonazePAM 0.5 MG TABLET PO PRN (16:39)
[2017-12-02] MEDS ORDERED: DOXAZOSIN 1 MG TABLET PO SCH (21:00)
[2017-12-02] MEDS ORDERED: MONTELUKAST 10 MG TABLET PO SCH (21:00)
[2017-12-02] MEDS: BECLOMETHASONE 40 MCG/PUFF INHALER 8.7 GM INH SCH (21:14)
[2017-12-03 03:52] LABS: Basophils % 0.2 % (0.0-0.8); Eosinophils # 0.1 10*3/uL (0.0-0.87); Eosinophils % 1.1 % (0.00-10.9); Hematocrit 25.3 VOL% (35.7-47.0); Hemoglobin 7.5 GM/DL (12.0-16.0); Immature Granulocytes % 0.4 %; Immature Granulocytes Absolute 0.05 #; Lymphocytes % 7.4 % (21.3-54.2); Mean Corpuscular HGB Conc 29.6 GM/DL (32-36); Mean Corpuscular Hemoglobin 24 PG (27-34); Mean Corpuscular Volume 80.6 FL (87-102); Mean Platelet Volume 10.5 FL (9.6-12.0); Monocytes # 0.7 10*3/uL (0.11-0.8); Monocytes % 5.6 % (1.7-12.7); Neutrophils % 85.3 % (38.7-73.9); Platelet Count 266 T/CUMM (130-400); Red Blood Count 3.14 MC/CUMM (3.8-5.5); Red Cell Distribution Width 17.6 % (9.3-17.3); White Blood Count 12.9 T/CUMM (4-12)
[2017-12-03 04:21] LABS: Calcium 7.8 MG/DL (8.5-10.1); Osmolality,Calculated 320.8 MOS/KG (273-304); Potassium 3.9 MMOL/L (3.5-5.1); Risk Ratio 2.93; Thyroid Stimulating Hormone 1.88 uIU/ml (0.358-3.74); VLDL CHOLESTEROL 22.8 MG/DL
[2017-12-03] MEDS ORDERED: LEVOTHYROXINE 75 MCG TABLET PO SCH (06:00)
[2017-12-03] MEDS ORDERED: ENOXAPARIN 120 MG/0.8 ML SYRINGE SUBCUT SCH (07:00)
[2017-12-03 08:22] VITALS: BP 180/88
[2017-12-03] MEDS ORDERED: amLODIPine 10 MG TABLET PO SCH (09:00)
[2017-12-03] MEDS ORDERED: metOLazone 5 MG TABLET PO SCH (09:00)
[2017-12-03] MEDS ORDERED: FERROUS SULFATE 325 MG TABLET PO SCH (09:00)
[2017-12-03] MEDS ORDERED: CETIRIZINE 10 MG TABLET PO SCH (09:00)
[2017-12-03] MEDS: ISOSORBIDE DINITRATE 10 MG TABLET PO SCH (09:06)
[2017-12-03] MEDS: GABAPENTIN 300 MG CAPSULE PO SCH (09:06)
[2017-12-03] MEDS: INSULIN LISPRO 100 UNIT/ML SUBCUT SCH (09:06)
[2017-12-03] MEDS: PANTOPRAZOLE 40 MG TABLET PO SCH (09:07)
[2017-12-03] MEDS: FUROSEMIDE 80 MG TABLET PO SCH (09:08)
[2017-12-03] MEDS: BECLOMETHASONE 40 MCG/PUFF INHALER 8.7 GM INH SCH (09:13)
[2017-12-03] MEDS: NEBIVOLOL 10 MG TABLET PO SCH (09:21)
[2017-12-03] MEDS ORDERED: CARVEDILOL 3.125 MG TABLET PO SCH (21:00)
== END 2017-12-03 11:19 | disposition home or self-care (01) ==
LOC: EDUNIT# → N.ED 06:38 → N.EDINP 06:38 → N.2W 11:05 → N.TELEN 12:05
PROVIDERS: ADMIT Internal Medicine; ATTEND Internal Medicine

== ENCOUNTER 2018-04-27 18:11 | Inpatient (IN) ==
[2018-04-27 19:30] LABS: Basophils % 0.4 % (0.0-0.8); Eosinophils # 0.2 10*3/uL (0.0-0.87); Eosinophils % 1.8 % (0.00-10.9); Hematocrit 26.5 VOL% (35.7-47.0); Immature Granulocytes % 0.5 %; Immature Granulocytes Absolute 0.05 #; Lymphocytes % 8.8 % (21.3-54.2); Mean Corpuscular HGB Conc 30.2 GM/DL (32-36); Mean Corpuscular Hemoglobin 24 PG (27-34); Mean Corpuscular Volume 78.6 FL (87-102); Mean Platelet Volume 10.3 FL (9.6-12.0); Monocytes # 0.5 10*3/uL (0.11-0.8); Monocytes % 4.3 % (1.7-12.7); Neutrophils # 9.3 10*3/uL (1.4-7.4); Neutrophils % 84.2 % (38.7-73.9); Platelet Count 278 T/CUMM (130-400); Red Blood Count 3.37 MC/CUMM (3.8-5.5); Red Cell Distribution Width 18.2 % (9.3-17.3); White Blood Count 11.1 T/CUMM (4-12)
[2018-04-27 19:37] LABS: PT Patient Result 11.3 SECS; Partial Thromboplastin Time 28.7 SECS (0-40)
[2018-04-27 19:47] LABS: Alanine Aminotransferase 22 U/L (13-56); Albumin 4.1 G/DL (3.4-5.0); Alkaline Phosphatase 76 U/L (45-117); Aspartate Amino Transferase 20 U/L (0-37); Bilirubin,Total < 0.39 MG/DL (0.2-1.0); Blood Urea Nitrogen 103 MG/DL (7-18); Calcium 7.6 MG/DL (8.5-10.1); Glucose 131 MG/DL (74-106); Osmolality,Calculated 312.4 MOS/KG (273-304); Potassium 3.9 MMOL/L (3.5-5.1); Sodium 140 MMOL/L (136-145); Total Protein 8.2 G/DL (6.4-8.3)
[2018-04-27] MEDS ORDERED: FUROSEMIDE 40 MG/4 ML VIAL IV STA (20:18)
[2018-04-27] MEDS ORDERED: hydrALAZINE 20 MG/1 ML VIAL IV STA (20:43)
[2018-04-27] MEDS ORDERED: AZITHROMYCIN 250 MG TABLET PO STA (20:43)
[2018-04-27] MEDS ORDERED: ACETAMINOPHEN 325 MG TABLET PO PRN (21:30)
[2018-04-27] MEDS ORDERED: ALBUTEROL 2.5 MG/3 ML NEB RESP TX PRN ×2 (21:30→23:23)
[2018-04-27] MEDS ORDERED: MORPHINE 4 MG/1 ML VIAL IV PRN (21:30)
[2018-04-27] MEDS ORDERED: diphenhydrAMINE CAP 25 MG CAPSULE PO PRN (21:30)
[2018-04-27] MEDS ORDERED: NICOTINE 21 MG/24 HR PATCH TRANSDERM PRN (21:30)
[2018-04-27] MEDS ORDERED: BISACODYL 5 MG TABLET PO PRN (21:30)
[2018-04-27] MEDS ORDERED: guaiFENesin/DM ER 600-30 MG TABLET PO PRN (21:30)
[2018-04-27] MEDS ORDERED: ZALEPLON 5 MG CAPSULE PO PRN (21:30)
[2018-04-27 22:22] LABS: Risk Ratio 3.06; Thyroid Stimulating Hormone 2.08 uIU/ml (0.358-3.74); VLDL CHOLESTEROL 21.4 MG/DL
[2018-04-27] MEDS ORDERED: GLUCAGON 1 MG VIAL IM PRN (23:23)
[2018-04-27] MEDS ORDERED: DEXTROSE 50% 25 GM/50 ML SYRINGE IV PRN (23:23)
[2018-04-28] MEDS: INSULIN REGULAR 100 UNIT/ML SUBCUT SCH ×5 (00:01→22:57)
[2018-04-28] MEDS: ALBUTEROL/IPRATROPIUM 3 ML NEB RESP TX SCH ×4 (00:06→19:16)
[2018-04-28] MEDS: INSULIN GLARGINE 100 UNIT/ML SUBCUT SCH ×2 (00:25→23:13)
[2018-04-28] MEDS: BECLOMETHASONE 40 MCG INH SCH ×3 (00:41→23:12)
[2018-04-28 05:25] LABS: Basophils % 0.4 % (0.0-0.8); Eosinophils # 0.2 10*3/uL (0.0-0.87); Eosinophils % 1.7 % (0.00-10.9); Hematocrit 23.6 VOL% (35.7-47.0); Hemoglobin 7.1 GM/DL (12.0-16.0); Immature Granulocytes % 0.5 %; Immature Granulocytes Absolute 0.05 #; Lymphocytes # 0.7 10*3/uL (1.4-4.0); Lymphocytes % 6.8 % (21.3-54.2); Mean Corpuscular HGB Conc 30.1 GM/DL (32-36); Mean Corpuscular Hemoglobin 24 PG (27-34); Mean Corpuscular Volume 78.4 FL (87-102); Monocytes # 0.5 10*3/uL (0.11-0.8); Neutrophils # 8.7 10*3/uL (1.4-7.4); Neutrophils % 85.6 % (38.7-73.9); Platelet Count 248 T/CUMM (130-400); Red Blood Count 3.01 MC/CUMM (3.8-5.5); Red Cell Distribution Width 18.3 % (9.3-17.3); White Blood Count 10.2 T/CUMM (4-12)
[2018-04-28 05:42] LABS: Calcium 7.4 MG/DL (8.5-10.1); Osmolality,Calculated 313.4 MOS/KG (273-304); Potassium 3.6 MMOL/L (3.5-5.1)
[2018-04-28] MEDS: LEVOTHYROXINE 75 MCG TABLET PO SCH (06:52)
[2018-04-28] MEDS: SERTRALINE 25 MG TABLET PO SCH (08:28)
[2018-04-28] MEDS: ISOSORBIDE DINITRATE 20 MG TABLET PO SCH ×3 (08:28→23:11)
[2018-04-28] MEDS: FERROUS SULFATE 325 MG TABLET PO SCH (08:28)
[2018-04-28] MEDS: BENZONATATE 100 MG CAPSULE PO SCH (08:29)
[2018-04-28] MEDS: amLODIPine 10 MG TABLET PO SCH (08:29)
[2018-04-28] MEDS: metOLazone 5 MG TABLET PO SCH (08:29)
[2018-04-28] MEDS: PANTOPRAZOLE 40 MG TABLET PO SCH (08:30)
[2018-04-28] MEDS: GABAPENTIN 300 MG CAPSULE PO SCH ×3 (08:30→23:12)
[2018-04-28] MEDS: CALCITRIOL 0.5 MCG CAPSULE PO SCH (08:30)
[2018-04-28] MEDS: CETIRIZINE 10 MG TABLET PO SCH (08:30)
[2018-04-28] MEDS: FUROSEMIDE 40 MG/4 ML VIAL IV SCH ×2 (08:34→15:56)
[2018-04-28] MEDS: AZITHROMYCIN INJ 500 MG in SODIUM CHLORIDE 0.9% 250 ML IV SCH (08:37)
[2018-04-28] MEDS ORDERED: ATENOLOL 50 MG TABLET PO SCH (09:00)
[2018-04-28] MEDS: ONDANSETRON 4 MG/2 ML VIAL IV PRN (09:13)
[2018-04-28] MEDS: POTASSIUM CHLORIDE 8 MEQ CAPSULE PO SCH (13:24)
[2018-04-28] MEDS: ATORVASTATIN 40 MG TABLET PO SCH (13:24)
[2018-04-28] MEDS: DOXAZOSIN 1 MG TABLET PO SCH (23:11)
[2018-04-28] MEDS: MONTELUKAST 10 MG TABLET PO SCH (23:11)
[2018-04-28] MEDS: NEBIVOLOL 5 MG TABLET PO SCH (23:18)
[2018-04-29] MEDS: ALBUTEROL/IPRATROPIUM 3 ML NEB RESP TX SCH ×4 (00:50→19:13)
[2018-04-29 05:32] LABS: Calcium 7.2 MG/DL (8.5-10.1); Osmolality,Calculated 317.3 MOS/KG (273-304); Potassium 3.7 MMOL/L (3.5-5.1)
[2018-04-29 06:00] LABS: Basophils % 0.3 % (0.0-0.8); Eosinophils # 0.2 10*3/uL (0.0-0.87); Eosinophils % 1.8 % (0.00-10.9); Hematocrit 22.4 VOL% (35.7-47.0); Hemoglobin 6.8 GM/DL (12.0-16.0); Immature Granulocytes % 0.6 %; Immature Granulocytes Absolute 0.05 #; Lymphocytes # 0.8 10*3/uL (1.4-4.0); Lymphocytes % 8.8 % (21.3-54.2); Mean Corpuscular HGB Conc 30.4 GM/DL (32-36); Mean Corpuscular Hemoglobin 24 PG (27-34); Mean Platelet Volume 10.2 FL (9.6-12.0); Monocytes # 0.6 10*3/uL (0.11-0.8); Monocytes % 6.2 % (1.7-12.7); Neutrophils # 7.3 10*3/uL (1.4-7.4); Neutrophils % 82.3 % (38.7-73.9); Platelet Count 238 T/CUMM (130-400); Red Blood Count 2.87 MC/CUMM (3.8-5.5); Red Cell Distribution Width 18.6 % (9.3-17.3); White Blood Count 8.9 T/CUMM (4-12)
[2018-04-29] MEDS: LEVOTHYROXINE 75 MCG TABLET PO SCH (07:07)
[2018-04-29] MEDS ORDERED: SODIUM CHLORIDE 0.9% 1,000 ML IV PRN (08:41)
[2018-04-29] MEDS: ISOSORBIDE DINITRATE 20 MG TABLET PO SCH ×3 (08:51→22:01)
[2018-04-29] MEDS: metOLazone 5 MG TABLET PO SCH (08:51)
[2018-04-29] MEDS: CALCITRIOL 0.5 MCG CAPSULE PO SCH (08:51)
[2018-04-29] MEDS: PANTOPRAZOLE 40 MG TABLET PO SCH (08:51)
[2018-04-29] MEDS: BENZONATATE 100 MG CAPSULE PO SCH (08:52)
[2018-04-29] MEDS: NEBIVOLOL 5 MG TABLET PO SCH (08:52)
[2018-04-29] MEDS: amLODIPine 10 MG TABLET PO SCH (08:52)
[2018-04-29] MEDS: GABAPENTIN 300 MG CAPSULE PO SCH ×3 (08:52→22:02)
[2018-04-29] MEDS: SERTRALINE 25 MG TABLET PO SCH (08:52)
[2018-04-29] MEDS: CETIRIZINE 10 MG TABLET PO SCH (08:53)
[2018-04-29] MEDS: FERROUS SULFATE 325 MG TABLET PO SCH (08:53)
[2018-04-29] MEDS: BECLOMETHASONE 40 MCG INH SCH ×2 (08:56→22:05)
[2018-04-29] MEDS: INSULIN REGULAR 100 UNIT/ML SUBCUT SCH ×4 (08:57→21:15)
[2018-04-29] MEDS: AZITHROMYCIN INJ 500 MG in SODIUM CHLORIDE 0.9% 250 ML IV SCH (08:57)
[2018-04-29] MEDS: FUROSEMIDE 40 MG/4 ML VIAL IV SCH ×2 (08:58→18:09)
[2018-04-29] MEDS: ONDANSETRON 4 MG/2 ML VIAL IV PRN (10:08)
[2018-04-29] MEDS: HEPARIN 5,000 UNIT/1 ML VIAL SUBCUT SCH ×2 (10:36→22:03)
[2018-04-29 11:10] LABS: % Iron Saturation 15.7 % (18-50); Ferritin 190.5 ng/ml (8-252)
[2018-04-29] MEDS: ATORVASTATIN 40 MG TABLET PO SCH (12:07)
[2018-04-29] MEDS: POTASSIUM CHLORIDE 8 MEQ CAPSULE PO SCH (12:07)
[2018-04-29] MEDS ORDERED: FUROSEMIDE 40 MG/4 ML VIAL IV ONE (13:00)
[2018-04-29] MEDS: CARVEDILOL 6.25 MG TABLET PO SCH (17:17)
[2018-04-29 19:53] LABS: Hematocrit 30.1 VOL% (35.7-47.0); Hemoglobin 9.3 GM/DL (12.0-16.0)
[2018-04-29] MEDS ORDERED: NEBIVOLOL 5 MG TABLET PO SCH (21:00)
[2018-04-29] MEDS: DOXAZOSIN 1 MG TABLET PO SCH (22:01)
[2018-04-29] MEDS: MONTELUKAST 10 MG TABLET PO SCH (22:01)
[2018-04-29] MEDS: INSULIN GLARGINE 100 UNIT/ML SUBCUT SCH (22:02)
[2018-04-30] MEDS: ALBUTEROL/IPRATROPIUM 3 ML NEB RESP TX SCH ×2 (00:13→07:23)
[2018-04-30 05:02] LABS: Basophils % 0.4 % (0.0-0.8); Eosinophils # 0.3 10*3/uL (0.0-0.87); Eosinophils % 2.6 % (0.00-10.9); Hematocrit 27.2 VOL% (35.7-47.0); Hemoglobin 8.5 GM/DL (12.0-16.0); Immature Granulocytes % 0.5 %; Immature Granulocytes Absolute 0.05 #; Lymphocytes # 0.8 10*3/uL (1.4-4.0); Lymphocytes % 8.4 % (21.3-54.2); Mean Corpuscular HGB Conc 31.3 GM/DL (32-36); Mean Corpuscular Hemoglobin 25 PG (27-34); Mean Corpuscular Volume 78.8 FL (87-102); Mean Platelet Volume 10.5 FL (9.6-12.0); Monocytes # 0.6 10*3/uL (0.11-0.8); Monocytes % 6.2 % (1.7-12.7); Neutrophils % 81.9 % (38.7-73.9); Platelet Count 235 T/CUMM (130-400); Red Blood Count 3.45 MC/CUMM (3.8-5.5); Red Cell Distribution Width 17.5 % (9.3-17.3); White Blood Count 9.8 T/CUMM (4-12)
[2018-04-30 05:33] LABS: Calcium 7.4 MG/DL (8.5-10.1); Osmolality,Calculated 312.3 MOS/KG (273-304); Potassium 3.7 MMOL/L (3.5-5.1)
[2018-04-30] MEDS: LEVOTHYROXINE 75 MCG TABLET PO SCH (06:22)
[2018-04-30] MEDS: INSULIN REGULAR 100 UNIT/ML SUBCUT SCH ×2 (07:28→11:41)
[2018-04-30 07:53] VITALS: BP 155/65
[2018-04-30] MEDS: BECLOMETHASONE 40 MCG INH SCH (08:40)
[2018-04-30] MEDS: AZITHROMYCIN INJ 500 MG in SODIUM CHLORIDE 0.9% 250 ML IV SCH (08:40)
[2018-04-30] MEDS: metOLazone 5 MG TABLET PO SCH (08:41)
[2018-04-30] MEDS: ISOSORBIDE DINITRATE 20 MG TABLET PO SCH (08:41)
[2018-04-30] MEDS: HEPARIN 5,000 UNIT/1 ML VIAL SUBCUT SCH (08:41)
[2018-04-30] MEDS: CARVEDILOL 6.25 MG TABLET PO SCH (08:41)
[2018-04-30] MEDS: FERROUS SULFATE 325 MG TABLET PO SCH (08:41)
[2018-04-30] MEDS: FUROSEMIDE 40 MG/4 ML VIAL IV SCH (08:41)
[2018-04-30] MEDS: CALCITRIOL 0.5 MCG CAPSULE PO SCH (08:41)
[2018-04-30] MEDS: PANTOPRAZOLE 40 MG TABLET PO SCH (08:42)
[2018-04-30] MEDS: SERTRALINE 25 MG TABLET PO SCH (08:42)
[2018-04-30] MEDS: CETIRIZINE 10 MG TABLET PO SCH (08:42)
[2018-04-30] MEDS: amLODIPine 10 MG TABLET PO SCH (08:42)
[2018-04-30] MEDS: BENZONATATE 100 MG CAPSULE PO SCH (08:42)
[2018-04-30] MEDS: GABAPENTIN 300 MG CAPSULE PO SCH (08:43)
== END 2018-04-30 11:40 | disposition home or self-care (01) | DRG 291 ==
LOC: N.ED 18:11 → N.EDINP 21:30 → N.2E 22:57
PROVIDERS: ADMIT Internal Medicine; ATTEND Internal Medicine

== ENCOUNTER 2018-06-20 11:35 | Inpatient (IN) ==
[2018-06-20] MEDS ORDERED: DEXTROSE 50% 25 GM/50 ML SYRINGE IV PRN (12:33)
[2018-06-20] MEDS ORDERED: ZALEPLON 5 MG CAPSULE PO PRN (12:33)
[2018-06-20] MEDS ORDERED: DOCUSATE SODIUM 100 MG CAPSULE PO PRN (12:33)
[2018-06-20] MEDS ORDERED: ONDANSETRON 4 MG/2 ML VIAL IV PRN (12:33)
[2018-06-20] MEDS ORDERED: GLUCAGON 1 MG VIAL IM PRN ×2 (12:33)
[2018-06-20] MEDS ORDERED: DEXTROSE 50% 25 GM/50 ML VIAL IV PRN (12:33)
[2018-06-20 13:27] LABS: Calcium 9.8 MG/DL (8.5-10.1); Osmolality,Calculated 288.5 MOS/KG (273-304)
[2018-06-20] MEDS: SODIUM CHLORIDE 0.45% 1,000 ML IV SCH (14:12)
[2018-06-20] MEDS: CLINDAMYCIN 300 MG CAPSULE PO SCH ×2 (14:24→21:35)
[2018-06-20] MEDS: ACETAMINOPHEN 325 MG TABLET PO PRN ×2 (14:24→20:38)
[2018-06-20] MEDS: ISOSORBIDE DINITRATE 20 MG TABLET PO SCH ×2 (15:28→20:39)
[2018-06-20] MEDS: GABAPENTIN 300 MG CAPSULE PO SCH ×2 (15:30→20:40)
[2018-06-20] MEDS: INSULIN REGULAR 100 UNIT/ML SUBCUT SCH ×2 (17:13→21:39)
[2018-06-20] MEDS: CARVEDILOL 6.25 MG TABLET PO SCH (17:13)
[2018-06-20 18:39] LABS: Apearance,Urine CLEAR (Clear); Bacteria,Urine Occasional /HPF (Few); Bilirubin,Urine Negative (Negative); Blood, Urine Negative (Negative); Glucose,Urine (UA) Negative (Negative); Ketones,Urine Negative (Negative); Nitrite,Urine Negative (Negative); Protein,Urine 100 MG/DL; RBC,Urine 1 /HPF (0-4); Squamous Epithelial Cell,Urine Occasional /HPF (0-10); Urine Color Straw (Yellow); Urine Specific Gravity 1.006 (1.001-1.035); Urine Urobilinogen < 2.0 EU/DL (0.2-1.0); WBC,Urine <1 /HPF (0-6)
[2018-06-20] MEDS: FAMOTIDINE 20 MG TABLET PO SCH (20:39)
[2018-06-20] MEDS ORDERED: ENOXAPARIN 30 MG/0.3 ML SYRINGE SUBCUT SCH (21:00)
[2018-06-20] MEDS ORDERED: DOXAZOSIN 1 MG TABLET PO SCH (21:00)
[2018-06-21] MEDS: SODIUM CHLORIDE 0.45% 1,000 ML IV SCH (00:22)
[2018-06-21] MEDS ORDERED: MORPHINE 4 MG/1 ML VIAL IV ONE (02:00)
[2018-06-21] MEDS ORDERED: ALBUTEROL/IPRATROPIUM 3 ML NEB RESP TX PRN (02:01)
[2018-06-21 02:06] LABS: Basophils % 0.4 % (0.0-0.8); Eosinophils # 0.1 10*3/uL (0.0-0.87); Eosinophils % 1.7 % (0.00-10.9); Hematocrit 26.4 VOL% (35.7-47.0); Hemoglobin 8.4 GM/DL (12.0-16.0); Immature Granulocytes % 0.3 %; Immature Granulocytes Absolute 0.02 #; Lymphocytes # 1.1 10*3/uL (1.4-4.0); Lymphocytes % 14.6 % (21.3-54.2); Mean Corpuscular HGB Conc 31.8 GM/DL (32-36); Mean Corpuscular Volume 75.9 FL (87-102); Monocytes % 12.8 % (1.7-12.7); Neutrophils % 70.2 % (38.7-73.9); Platelet Count 234 T/CUMM (130-400); Red Blood Count 3.48 MC/CUMM (3.8-5.5); Red Cell Distribution Width 16.1 % (9.3-17.3); White Blood Count 7.8 T/CUMM (4-12)
[2018-06-21 02:34] LABS: Calcium 8.7 MG/DL (8.5-10.1); Osmolality,Calculated 279.6 MOS/KG (273-304)
[2018-06-21 02:38] LABS: Alanine Aminotransferase 14 U/L (13-56); Albumin 3.7 G/DL (3.4-5.0); Alkaline Phosphatase 59 U/L (45-117); Aspartate Amino Transferase 15 U/L (0-37); Bilirubin,Direct < 0.100 MG/DL (0.0-0.20); Bilirubin,Indirect 0.3 MG/DL (0.0-1.0); Bilirubin,Total < 0.39 MG/DL (0.2-1.0); Total Protein 7.8 G/DL (6.4-8.3)
[2018-06-21] MEDS ORDERED: ONDANSETRON 4 MG/2 ML VIAL IV ONE (03:24)
[2018-06-21] MEDS ORDERED: PROMETHAZINE 25 MG/1 ML VIAL IM ONE (05:33)
[2018-06-21] MEDS: CLINDAMYCIN 300 MG CAPSULE PO SCH (06:39)
[2018-06-21] MEDS: INSULIN REGULAR 100 UNIT/ML SUBCUT SCH ×2 (07:54→11:44)
[2018-06-21] MEDS: CARVEDILOL 6.25 MG TABLET PO SCH (08:49)
[2018-06-21] MEDS: ISOSORBIDE DINITRATE 20 MG TABLET PO SCH (08:49)
[2018-06-21] MEDS: FAMOTIDINE 20 MG TABLET PO SCH (08:50)
[2018-06-21] MEDS: GABAPENTIN 300 MG CAPSULE PO SCH (08:50)
[2018-06-21] MEDS ORDERED: FERROUS SULFATE 325 MG TABLET PO SCH (09:00)
[2018-06-21] MEDS ORDERED: CALCITRIOL 0.5 MCG CAPSULE PO SCH (09:00)
[2018-06-21] MEDS ORDERED: amLODIPine 10 MG TABLET PO SCH (09:00)
[2018-06-21 12:00] VITALS: BP 141/53
== END 2018-06-21 12:45 | disposition home or self-care, planned readmission (81) | DRG 683 ==
LOC: N.2E → OBSVTOIN 12:05 → SUATTDRO 12:05
PROVIDERS: ADMIT Internal Medicine Nephrology; ATTEND Internal Medicine

== ENCOUNTER 2018-08-01 23:17 | Inpatient (IN) ==
[2018-08-02 00:41] LABS: Basophils # 0.1 10*3/uL (0.0-0.2); Basophils % 0.3 % (0.0-0.8); Eosinophils % 0.1 % (0.00-10.9); Hematocrit 26.3 VOL% (35.7-47.0); Hemoglobin 8.3 GM/DL (12.0-16.0); Immature Granulocytes % 0.8 %; Lymphocytes # 0.9 10*3/uL (1.4-4.0); Lymphocytes % 3.7 % (21.3-54.2); Mean Corpuscular HGB Conc 31.6 GM/DL (32-36); Mean Corpuscular Volume 77.8 FL (87-102); Mean Platelet Volume 9.5 FL (9.6-12.0); Monocytes % 5.4 % (1.7-12.7); Neutrophils % 89.7 % (38.7-73.9); Platelet Count 254 T/CUMM (130-400); Red Blood Count 3.38 MC/CUMM (3.8-5.5); Red Cell Distribution Width 16.2 % (9.3-17.3)
[2018-08-02 01:00] LABS: Albumin 3.7 G/DL (3.4-5.0); Bilirubin,Total 0.4 MG/DL (0.2-1.0); Osmolality,Calculated 299.2 MOS/KG (273-304); Total Protein 8.5 G/DL (6.4-8.3)
[2018-08-02] MEDS ORDERED: CEFEPIME 2,000 MG in SODIUM CHLORIDE 0.9% 100 ML IV STA (01:05)
[2018-08-02] MEDS ORDERED: SODIUM CHLORIDE 0.9% 1,000 ML IV STA ×2 (01:06→01:30)
[2018-08-02] MEDS ORDERED: VANCOMYCIN INJ 1,000 MG in SODIUM CHLORIDE 0.9% 250 ML IV STA (01:06)
[2018-08-02 01:17] LABS: Lymphocytes 2 % (20-55); Segmented Neutrophils 93 % (50-85); Total Cells Counted 100
[2018-08-02 01:18] LABS: Anisocytosis Slight; Microcytosis 2+
[2018-08-02 01:19] LABS: Ovalocytes Few; Platelet Estimate Normal; Polychromasia Slight
[2018-08-02 02:06] LABS: Apearance,Urine CLEAR (Clear); Bacteria,Urine Occasional /HPF (Few); Bilirubin,Urine Negative (Negative); Blood, Urine Negative (Negative); Glucose,Urine (UA) Negative (Negative); Ketones,Urine Negative (Negative); Mucus,Urine Occasional /LPF (Occasional); Nitrite,Urine Negative (Negative); Protein,Urine 100 MG/DL; RBC,Urine 3 /HPF (0-4); Squamous Epithelial Cell,Urine Occasional /HPF (0-10); Urine Color Straw (Yellow); Urine Specific Gravity 1.009 (1.001-1.035); Urine Urobilinogen < 2.0 EU/DL (0.2-1.0); WBC,Urine 1 /HPF (0-6)
[2018-08-02] MEDS ORDERED: SODIUM CHLORIDE 0.9% 100 ML IV ONE (02:21)
[2018-08-02] MEDS ORDERED: ONDANSETRON 4 MG/2 ML VIAL IV PRN (03:12)
[2018-08-02 03:53] LABS: VBG Base Excess 2.8 MEQ/L (0-4); VBG Oxygen Saturation 99.7 %; VBG PCO2 40.1 MMHG (41-51); VBG PH 7.438
[2018-08-02] MEDS ORDERED: GLUCAGON 1 MG VIAL IM PRN (05:35)
[2018-08-02] MEDS ORDERED: DEXTROSE 50% 25 GM/50 ML VIAL IV PRN (05:35)
[2018-08-02] MEDS: AZITHROMYCIN INJ 500 MG in SODIUM CHLORIDE 0.9% 250 ML IV SCH (05:37)
[2018-08-02] MEDS: ENOXAPARIN 30 MG/0.3 ML SYRINGE SUBCUT SCH (05:38)
[2018-08-02] MEDS: LEVOTHYROXINE 75 MCG TABLET PO SCH (05:54)
[2018-08-02 06:46] LABS: Basophils # 0.1 10*3/uL (0.0-0.2); Basophils % 0.2 % (0.0-0.8); Eosinophils % 0.2 % (0.00-10.9); Hematocrit 23.7 VOL% (35.7-47.0); Hemoglobin 7.4 GM/DL (12.0-16.0); Immature Granulocytes Absolute 0.24 #; Lymphocytes # 1.2 10*3/uL (1.4-4.0); Lymphocytes % 4.8 % (21.3-54.2); Mean Corpuscular HGB Conc 31.2 GM/DL (32-36); Mean Platelet Volume 10.2 FL (9.6-12.0); Monocytes % 5.1 % (1.7-12.7); Neutrophils % 88.7 % (38.7-73.9); Platelet Count 239 T/CUMM (130-400); Red Blood Count 3.04 MC/CUMM (3.8-5.5); Red Cell Distribution Width 16.2 % (9.3-17.3); White Blood Count 24.6 T/CUMM (4-12)
[2018-08-02 07:12] LABS: Albumin 3.2 G/DL (3.4-5.0); Bilirubin,Total 0.7 MG/DL (0.2-1.0); Calcium 8.3 MG/DL (8.5-10.1); Total Protein 7.7 G/DL (6.4-8.3)
[2018-08-02] MEDS: ALBUTEROL/IPRATROPIUM 3 ML NEB RESP TX SCH ×3 (07:21→19:10)
[2018-08-02] MEDS: GABAPENTIN 300 MG CAPSULE PO SCH ×3 (08:13→21:44)
[2018-08-02] MEDS: amLODIPine 10 MG TABLET PO SCH (08:13)
[2018-08-02] MEDS: CARVEDILOL 12.5 MG TABLET PO SCH ×2 (08:13→18:31)
[2018-08-02] MEDS: POTASSIUM CHLORIDE 20 MEQ TABLET PO PRN ×4 (08:13→16:21)
[2018-08-02] MEDS: ISOSORBIDE DINITRATE 20 MG TABLET PO SCH ×3 (08:13→21:43)
[2018-08-02] MEDS: FUROSEMIDE 80 MG TABLET PO SCH ×2 (08:14→16:22)
[2018-08-02] MEDS: PANTOPRAZOLE 40 MG TABLET PO SCH (08:14)
[2018-08-02] MEDS: CETIRIZINE 10 MG TABLET PO SCH (08:14)
[2018-08-02] MEDS: CALCITRIOL 0.5 MCG CAPSULE PO SCH (08:14)
[2018-08-02] MEDS ORDERED: NON-FORMULARY MEDICATION (Esomeprazole Magnesium [Nexium] 40 MG) PO SCH (09:00)
[2018-08-02 09:06] LABS: Lymphocytes 6 % (20-55); Polychromasia Slight; Segmented Neutrophils 91 % (50-85); Total Cells Counted 100
[2018-08-02 09:07] LABS: Hypochromasia 1+; Microcytosis 1+
[2018-08-02 09:08] LABS: Ovalocytes Slight; Platelet Estimate Normal; Target Cells Slight
[2018-08-02] MEDS: INSULIN REGULAR 100 UNIT/ML SUBCUT SCH ×4 (10:08→21:44)
[2018-08-02] MEDS ORDERED: PHENOL 1.4% THROAT SPRAY 177 ML BOTTLE PO PRN (10:31)
[2018-08-02] MEDS: cefTRIAXone 1,000 MG in SYRINGE 1 EACH IV SCH (14:07)
[2018-08-02] MEDS: SERTRALINE 50 MG TABLET PO SCH (21:43)
[2018-08-02] MEDS: ATORVASTATIN 40 MG TABLET PO SCH (21:44)
[2018-08-02] MEDS: DOXAZOSIN 1 MG TABLET PO SCH (21:52)
[2018-08-02] MEDS: ACETAMINOPHEN 325 MG TABLET PO PRN (21:52)
[2018-08-03] MEDS: AZITHROMYCIN INJ 500 MG in SODIUM CHLORIDE 0.9% 250 ML IV SCH (03:33)
[2018-08-03] MEDS: ENOXAPARIN 30 MG/0.3 ML SYRINGE SUBCUT SCH (05:14)
[2018-08-03] MEDS: POTASSIUM CHLORIDE 20 MEQ TABLET PO PRN ×2 (05:15→08:55)
[2018-08-03] MEDS: LEVOTHYROXINE 75 MCG TABLET PO SCH (05:15)
[2018-08-03 06:24] LABS: Basophils # 0.1 10*3/uL (0.0-0.2); Basophils % 0.3 % (0.0-0.8); Eosinophils # 0.3 10*3/uL (0.0-0.87); Eosinophils % 1.2 % (0.00-10.9); Hematocrit 22.5 VOL% (35.7-47.0); Immature Granulocytes % 1.1 %; Immature Granulocytes Absolute 0.25 #; Lymphocytes # 1.3 10*3/uL (1.4-4.0); Lymphocytes % 5.7 % (21.3-54.2); Mean Corpuscular HGB Conc 31.1 GM/DL (32-36); Mean Corpuscular Volume 78.9 FL (87-102); Mean Platelet Volume 10.5 FL (9.6-12.0); Neutrophils % 84.7 % (38.7-73.9); Platelet Count 236 T/CUMM (130-400); Red Blood Count 2.85 MC/CUMM (3.8-5.5); Red Cell Distribution Width 16.3 % (9.3-17.3); White Blood Count 22.6 T/CUMM (4-12)
[2018-08-03 06:40] LABS: Calcium 8.1 MG/DL (8.5-10.1)
[2018-08-03] MEDS: ALBUTEROL/IPRATROPIUM 3 ML NEB RESP TX SCH ×4 (07:15→19:47)
[2018-08-03 08:27] LABS: Band Neutrophils 1 % (0-10); Hypochromasia 2+; Lymphocytes 4 % (20-55); Ovalocytes Few; Schistocytes Slight; Segmented Neutrophils 85 % (50-85); Total Cells Counted 100
[2018-08-03 08:28] LABS: Platelet Estimate Adequate
[2018-08-03] MEDS: INSULIN REGULAR 100 UNIT/ML SUBCUT SCH ×4 (08:53→21:54)
[2018-08-03] MEDS: CARVEDILOL 12.5 MG TABLET PO SCH ×2 (08:55→16:25)
[2018-08-03] MEDS: amLODIPine 10 MG TABLET PO SCH (08:55)
[2018-08-03] MEDS: GABAPENTIN 300 MG CAPSULE PO SCH ×3 (08:55→21:49)
[2018-08-03] MEDS: CALCITRIOL 0.5 MCG CAPSULE PO SCH (08:55)
[2018-08-03] MEDS: PANTOPRAZOLE 40 MG TABLET PO SCH (08:55)
[2018-08-03] MEDS: ISOSORBIDE DINITRATE 20 MG TABLET PO SCH ×3 (08:55→21:49)
[2018-08-03] MEDS: CETIRIZINE 10 MG TABLET PO SCH (08:55)
[2018-08-03] MEDS: FUROSEMIDE 80 MG TABLET PO SCH ×2 (08:55→16:25)
[2018-08-03] MEDS: cefTRIAXone 1,000 MG in SYRINGE 1 EACH IV SCH (12:11)
[2018-08-03] MEDS: POTASSIUM CHLORIDE 20 MEQ/15 ML UDCUP PER TUBE PRN ×3 (14:10→18:37)
[2018-08-03] MEDS: SERTRALINE 50 MG TABLET PO SCH (21:49)
[2018-08-03] MEDS: DOXAZOSIN 1 MG TABLET PO SCH (21:49)
[2018-08-03] MEDS: ATORVASTATIN 40 MG TABLET PO SCH (21:49)
[2018-08-03] MEDS: ACETAMINOPHEN 325 MG TABLET PO PRN (23:11)
[2018-08-04 00:45] LABS: Calcium 8.3 MG/DL (8.5-10.1); Osmolality,Calculated 311.8 MOS/KG (273-304)
[2018-08-04] MEDS: ALBUTEROL/IPRATROPIUM 3 ML NEB RESP TX SCH ×3 (00:52→12:13)
[2018-08-04 01:11] LABS: Basophils % 0.3 % (0.0-0.8); Eosinophils # 0.4 10*3/uL (0.0-0.87); Eosinophils % 2.3 % (0.00-10.9); Hematocrit 22.7 VOL% (35.7-47.0); Immature Granulocytes % 0.8 %; Immature Granulocytes Absolute 0.13 #; Lymphocytes # 1.3 10*3/uL (1.4-4.0); Lymphocytes % 8.5 % (21.3-54.2); Mean Corpuscular HGB Conc 30.8 GM/DL (32-36); Mean Corpuscular Volume 78.3 FL (87-102); Mean Platelet Volume 10.6 FL (9.6-12.0); Monocytes % 7.1 % (1.7-12.7); Platelet Count 260 T/CUMM (130-400); Red Cell Distribution Width 16.2 % (9.3-17.3); White Blood Count 15.4 T/CUMM (4-12)
[2018-08-04] MEDS: LEVOTHYROXINE 75 MCG TABLET PO SCH (05:34)
[2018-08-04] MEDS: ENOXAPARIN 30 MG/0.3 ML SYRINGE SUBCUT SCH (05:34)
[2018-08-04] MEDS ORDERED: AZITHROMYCIN 250 MG TABLET PO SCH (09:00)
[2018-08-04] MEDS: INSULIN REGULAR 100 UNIT/ML SUBCUT SCH ×2 (09:56→13:06)
[2018-08-04] MEDS: FUROSEMIDE 80 MG TABLET PO SCH (10:05)
[2018-08-04] MEDS: CETIRIZINE 10 MG TABLET PO SCH (10:05)
[2018-08-04] MEDS: amLODIPine 10 MG TABLET PO SCH (10:05)
[2018-08-04] MEDS: GABAPENTIN 300 MG CAPSULE PO SCH (10:05)
[2018-08-04] MEDS: CARVEDILOL 12.5 MG TABLET PO SCH (10:05)
[2018-08-04] MEDS: PANTOPRAZOLE 40 MG TABLET PO SCH (10:05)
[2018-08-04] MEDS: CALCITRIOL 0.5 MCG CAPSULE PO SCH (10:05)
[2018-08-04] MEDS: ISOSORBIDE DINITRATE 20 MG TABLET PO SCH (10:05)
[2018-08-04] MEDS: cefTRIAXone 1,000 MG in SYRINGE 1 EACH IV SCH (13:08)
[2018-08-04 14:11] VITALS: BP 128/55
[2018-08-05] MEDS ORDERED: HEPARIN 5,000 UNIT/1 ML VIAL SUBCUT SCH (09:00)
== END 2018-08-04 15:26 | disposition home or self-care (01) | DRG 194 ==
LOC: EDUNIT# → EDBD → N.ED 23:17 → N.EDINP 08-02 03:11 → SUATTDRO 08-02 03:11 → N.5E 08-02 04:07
PROVIDERS: ADMIT Internal Medicine; ATTEND Family Medicine

== ENCOUNTER 2018-10-24 22:35 | Observation (INO) ==
[2018-10-24] MEDS ORDERED: METOCLOPRAMIDE 10 MG/2 ML VIAL IV STA (22:50)
[2018-10-24] MEDS ORDERED: ONDANSETRON 4 MG/2 ML VIAL IV STA (22:50)
[2018-10-25 00:29] LABS: Alanine Aminotransferase 18 U/L (13-56); Alkaline Phosphatase 63 U/L (45-117); Amylase 53 U/L (25-115); Aspartate Amino Transferase 29 U/L (0-37); Bilirubin,Total < 0.39 MG/DL (0.2-1.0); Blood Urea Nitrogen 59 MG/DL (7-18); CKMB % 3.2 %; Calcium 8.6 MG/DL (8.5-10.1); Glucose 145 MG/DL (74-106); Osmolality,Calculated 300.3 MOS/KG (273-304); Total Protein 7.2 G/DL (6.4-8.3); Troponin I 0.202 NG/ML (0.00-0.045)
[2018-10-25 00:32] LABS: Basophils % 0.3 % (0.0-0.8); Eosinophils # 0.1 10*3/uL (0.0-0.87); Eosinophils % 0.5 % (0.00-10.9); Hematocrit 29.7 VOL% (35.7-47.0); Hemoglobin 9.4 GM/DL (12.0-16.0); Immature Granulocytes % 0.6 %; Immature Granulocytes Absolute 0.07 #; Lymphocytes # 0.9 10*3/uL (1.4-4.0); Lymphocytes % 7.6 % (21.3-54.2); Mean Corpuscular HGB Conc 31.6 GM/DL (32-36); Mean Platelet Volume 10.1 FL (9.6-12.0); Monocytes % 4.9 % (1.7-12.7); Neutrophils % 86.1 % (38.7-73.9); Platelet Count 231 T/CUMM (130-400); Red Blood Count 3.81 MC/CUMM (3.8-5.5); Red Cell Distribution Width 16.5 % (9.3-17.3)
[2018-10-25] MEDS ORDERED: ONDANSETRON 4 MG/2 ML VIAL IV PRN (01:01)
[2018-10-25] MEDS ORDERED: CLOPIDOGREL 300 MG TABLET PO ONE (01:12)
[2018-10-25] MEDS ORDERED: HEPARIN DRIP 25,000 UNITS/500 ML PREMIX IV SCH (01:30)
[2018-10-25 01:45] LABS: Thyroid Stimulating Hormone 1.78 uIU/ml (0.358-3.74)
[2018-10-25 01:58] LABS: Apearance,Urine CLEAR (Clear); Bacteria,Urine Occasional /HPF (Few); Bilirubin,Urine Negative (Negative); Blood, Urine Negative (Negative); Glucose,Urine (UA) Negative (Negative); Hyaline Casts,Urine 1 /LPF (0-3); Ketones,Urine Negative (Negative); Mucus,Urine Occasional /LPF (Occasional); Nitrite,Urine Negative (Negative); Protein,Urine 30 MG/DL; RBC,Urine 1 /HPF (0-4); Squamous Epithelial Cell,Urine Occasional /HPF (0-10); Urine Color Straw (Yellow); Urine Specific Gravity 1.008 (1.001-1.035); Urine Urobilinogen < 2.0 EU/DL (0.2-1.0); WBC,Urine <1 /HPF (0-6)
[2018-10-25] MEDS ORDERED: GLUCAGON 1 MG VIAL IM PRN (01:58)
[2018-10-25] MEDS ORDERED: DEXTROSE 50% 25 GM/50 ML VIAL IV PRN (01:58)
[2018-10-25] MEDS ORDERED: POTASSIUM CHLORIDE 20 MEQ TABLET PO ONE ×2 (02:05→12:09)
[2018-10-25] MEDS ORDERED: ALBUTEROL/IPRATROPIUM 3 ML NEB RESP TX PRN (02:06)
[2018-10-25] MEDS: ASPIRIN EC 325 MG TABLET PO SCH ×2 (03:05→09:03)
[2018-10-25 04:27] LABS: Basophils % 0.3 % (0.0-0.8); Eosinophils # 0.1 10*3/uL (0.0-0.87); Eosinophils % 0.6 % (0.00-10.9); Hematocrit 31.6 VOL% (35.7-47.0); Hemoglobin 9.7 GM/DL (12.0-16.0); Immature Granulocytes % 0.4 %; Immature Granulocytes Absolute 0.04 #; Lymphocytes # 1.3 10*3/uL (1.4-4.0); Lymphocytes % 11.8 % (21.3-54.2); Mean Corpuscular HGB Conc 30.7 GM/DL (32-36); Mean Corpuscular Volume 79.4 FL (87-102); Mean Platelet Volume 10.7 FL (9.6-12.0); Monocytes % 6.7 % (1.7-12.7); Neutrophils % 80.2 % (38.7-73.9); Platelet Count 270 T/CUMM (130-400); Red Blood Count 3.98 MC/CUMM (3.8-5.5); Red Cell Distribution Width 16.5 % (9.3-17.3); White Blood Count 11.3 T/CUMM (4-12)
[2018-10-25 05:00] LABS: Calcium 8.8 MG/DL (8.5-10.1)
[2018-10-25] MEDS: INSULIN LISPRO 100 UNIT/ML SUBCUT SCH ×2 (05:45→12:31)
[2018-10-25] MEDS ORDERED: LEVOTHYROXINE 75 MCG TABLET PO SCH (06:00)
[2018-10-25] MEDS ORDERED: CLOPIDOGREL 75 MG TABLET PO SCH (09:00)
[2018-10-25] MEDS ORDERED: CALCITRIOL 0.5 MCG CAPSULE PO SCH (09:00)
[2018-10-25] MEDS ORDERED: PANTOPRAZOLE 40 MG TABLET PO SCH (09:00)
[2018-10-25] MEDS ORDERED: amLODIPine 10 MG TABLET PO SCH (09:00)
[2018-10-25] MEDS: CARVEDILOL 12.5 MG TABLET PO SCH ×2 (09:04→16:31)
[2018-10-25] MEDS: ISOSORBIDE DINITRATE 20 MG TABLET PO SCH ×2 (09:04→16:22)
[2018-10-25] MEDS: GABAPENTIN 300 MG CAPSULE PO SCH ×2 (09:05→16:23)
[2018-10-25] MEDS: FUROSEMIDE 80 MG TABLET PO SCH ×2 (09:05→16:23)
[2018-10-25] MEDS ORDERED: HEPARIN 5,000 UNIT/1 ML VIAL IV ONE (10:14)
[2018-10-25 16:18] VITALS: BP 174/61
[2018-10-25] MEDS ORDERED: ATORVASTATIN 40 MG TABLET PO SCH (21:00)
[2018-10-25] MEDS ORDERED: DOXAZOSIN 1 MG TABLET PO SCH (21:00)
[2018-10-25] MEDS ORDERED: SERTRALINE 50 MG TABLET PO SCH (21:00)
== END 2018-10-25 18:08 | disposition home or self-care (01) ==
LOC: EDUNIT# → N.EDINP 22:35 → N.ED 22:35 → N.TELEN 10-25 02:07
PROVIDERS: ADMIT Internal Medicine; ATTEND Internal Medicine

== ENCOUNTER 2018-12-10 17:09 | Inpatient (IN) ==
[2018-12-10 18:09] LABS: Apearance,Urine CLOUDY (Clear); Bacteria,Urine Occasional /HPF (Few); Bilirubin,Urine Negative (Negative); Blood, Urine Negative (Negative); Calcium Oxalate Crystals,Urine Occasional /HPF (Few); Glucose,Urine (UA) Negative (Negative); Ketones,Urine Negative (Negative); Mucus,Urine Occasional /LPF (Occasional); Nitrite,Urine Negative (Negative); Protein,Urine 30 MG/DL; RBC,Urine 6 /HPF (0-4); Squamous Epithelial Cell,Urine Few /HPF (0-10); Urine Color Yellow (Yellow); Urine Specific Gravity 1.011 (1.001-1.035); Urine Urobilinogen < 2.0 EU/DL (0.2-1.0)
[2018-12-10 18:11] LABS: Basophils % 0.3 % (0.0-0.8); Eosinophils # 0.3 10*3/uL (0.0-0.87); Eosinophils % 2.7 % (0.00-10.9); Hematocrit 36.6 VOL% (35.7-47.0); Hemoglobin 11.3 GM/DL (12.0-16.0); Immature Granulocytes % 0.3 %; Immature Granulocytes Absolute 0.04 #; Lymphocytes # 0.7 10*3/uL (1.4-4.0); Lymphocytes % 5.9 % (21.3-54.2); Mean Corpuscular HGB Conc 30.9 GM/DL (32-36); Mean Platelet Volume 9.7 FL (9.6-12.0); Monocytes % 7.5 % (1.7-12.7); Neutrophils % 83.3 % (38.7-73.9); Platelet Count 251 T/CUMM (130-400); Red Blood Count 4.52 MC/CUMM (3.8-5.5); Red Cell Distribution Width 18.5 % (9.3-17.3); White Blood Count 11.6 T/CUMM (4-12)
[2018-12-10 18:28] LABS: Alanine Aminotransferase 10 U/L (13-56); Albumin 2.6 G/DL (3.4-5.0); Alkaline Phosphatase 80 U/L (45-117); Amylase 22 U/L (25-115); Aspartate Amino Transferase 13 U/L (0-37); Bilirubin,Total < 0.39 MG/DL (0.2-1.0); Blood Urea Nitrogen 47 MG/DL (7-18); Calcium 8.2 MG/DL (8.5-10.1); Estimated Glom Filtration Rate 12 ML/MIN; Total Protein 7.1 G/DL (6.4-8.3)
[2018-12-10 18:32] LABS: Glucose 40 MG/DL (74-106)
[2018-12-10] MEDS ORDERED: DEXTROSE 50% 25 GM/50 ML VIAL IV STA (18:34)
[2018-12-10] MEDS ORDERED: DEXTROSE 50% 25 GM/50 ML VIAL IV ONE (18:36)
[2018-12-10] MEDS ORDERED: POTASSIUM CHLORIDE 20 MEQ TABLET PO STA (18:53)
[2018-12-10 18:58] LABS: Neutrophils,Peritoneal Fluid 69 %
[2018-12-10 18:59] LABS: RBC,Peritoneal Fluid < 1 T/CUMM
[2018-12-10] MEDS ORDERED: cefTRIAXone 1,000 MG in SODIUM CHLORIDE 0.9% 100 ML IV STA (19:32)
[2018-12-10] MEDS ORDERED: ONDANSETRON 4 MG/2 ML VIAL IV PRN (19:37)
[2018-12-10] MEDS ORDERED: ALBUTEROL 2.5 MG/3 ML NEB RESP TX PRN (19:42)
[2018-12-10] MEDS ORDERED: GLUCAGON 1 MG VIAL IM PRN (19:44)
[2018-12-10] MEDS ORDERED: DEXTROSE 50% 25 GM/50 ML VIAL IV PRN (19:44)
[2018-12-10] MEDS ORDERED: POTASSIUM CHLORIDE 20 MEQ TABLET PO ONE (19:53)
[2018-12-10] MEDS ORDERED: cefTRIAXone 1,000 MG in SODIUM CHLORIDE 0.9% 100 ML IV SCH (20:00)
[2018-12-10] MEDS ORDERED: DEXTROSE 5% NACL 0.45% 1,000 ML IV SCH (20:00)
[2018-12-10] MEDS ORDERED: cefTRIAXone 1,000 MG in SYRINGE 1 EACH IV ONE (21:00)
[2018-12-10] MEDS: INSULIN REGULAR 100 UNIT/ML SUBCUT SCH (21:39)
[2018-12-10] MEDS: DOXAZOSIN 1 MG TABLET PO SCH (21:51)
[2018-12-10] MEDS: carvediloL 12.5 MG TABLET PO SCH (21:51)
[2018-12-10] MEDS: GABAPENTIN 300 MG CAPSULE PO SCH (21:52)
[2018-12-10] MEDS: ATORVASTATIN 40 MG TABLET PO SCH (21:52)
[2018-12-11] MEDS: BISACODYL 5 MG TABLET PO PRN (01:22)
[2018-12-11] MEDS: MORPHINE 4 MG/1 ML VIAL IV PRN ×4 (01:23→21:11)
[2018-12-11 05:14] LABS: Basophils % 0.3 % (0.0-0.8); Eosinophils # 0.4 10*3/uL (0.0-0.87); Eosinophils % 2.9 % (0.00-10.9); Hematocrit 32.7 VOL% (35.7-47.0); Hemoglobin 10.2 GM/DL (12.0-16.0); Immature Granulocytes % 0.4 %; Immature Granulocytes Absolute 0.05 #; Lymphocytes # 0.9 10*3/uL (1.4-4.0); Lymphocytes % 7.4 % (21.3-54.2); Mean Corpuscular HGB Conc 31.2 GM/DL (32-36); Mean Corpuscular Volume 80.7 FL (87-102); Mean Platelet Volume 10.1 FL (9.6-12.0); Monocytes % 8.2 % (1.7-12.7); Neutrophils % 80.8 % (38.7-73.9); Platelet Count 234 T/CUMM (130-400); Red Blood Count 4.05 MC/CUMM (3.8-5.5); Red Cell Distribution Width 18.4 % (9.3-17.3); White Blood Count 12.7 T/CUMM (4-12)
[2018-12-11 05:34] LABS: Calcium 7.9 MG/DL (8.5-10.1); Osmolality,Calculated 285.2 MOS/KG (273-304)
[2018-12-11] MEDS: LEVOTHYROXINE 75 MCG TABLET PO SCH (06:26)
[2018-12-11] MEDS: amLODIPine 10 MG TABLET PO SCH (09:00)
[2018-12-11] MEDS ORDERED: POTASSIUM CHLORIDE 20 MEQ TABLET PO SCH (09:00)
[2018-12-11] MEDS: carvediloL 12.5 MG TABLET PO SCH ×2 (09:00→21:11)
[2018-12-11] MEDS: PANTOPRAZOLE 40 MG TABLET PO SCH (09:00)
[2018-12-11] MEDS: GABAPENTIN 300 MG CAPSULE PO SCH ×3 (09:00→21:11)
[2018-12-11] MEDS: INSULIN REGULAR 100 UNIT/ML SUBCUT SCH ×4 (09:01→21:17)
[2018-12-11] MEDS: CALCITRIOL 0.5 MCG CAPSULE PO SCH (09:43)
[2018-12-11] MEDS: POTASSIUM CHLORIDE 10 MEQ TABLET PO SCH (14:53)
[2018-12-11] MEDS: SEVELAMER CARBONATE 800 MG TABLET PO SCH (17:02)
[2018-12-11] MEDS ORDERED: cefTRIAXone 2,000 MG in SYRINGE 1 EACH IV SCH (21:00)
[2018-12-11] MEDS: ATORVASTATIN 40 MG TABLET PO SCH (21:11)
[2018-12-11] MEDS: DOXAZOSIN 1 MG TABLET PO SCH (21:11)
[2018-12-12] MEDS: MORPHINE 4 MG/1 ML VIAL IV PRN ×3 (00:37→18:20)
[2018-12-12] MEDS ORDERED: VANCOMYCIN 1,000 MG VIAL INTRAPERIT SCH (01:00)
[2018-12-12] MEDS: cefTRIAXone 1,000 MG VIAL INTRAPERIT SCH (01:08)
[2018-12-12] MEDS: BISACODYL 5 MG TABLET PO PRN (04:08)
[2018-12-12] MEDS: LEVOTHYROXINE 75 MCG TABLET PO SCH (05:45)
[2018-12-12] MEDS: GABAPENTIN 300 MG CAPSULE PO SCH ×3 (09:26→21:47)
[2018-12-12] MEDS: amLODIPine 10 MG TABLET PO SCH (09:26)
[2018-12-12] MEDS: POTASSIUM CHLORIDE 10 MEQ TABLET PO SCH (09:26)
[2018-12-12] MEDS: carvediloL 12.5 MG TABLET PO SCH ×2 (09:26→21:46)
[2018-12-12] MEDS: PANTOPRAZOLE 40 MG TABLET PO SCH (09:27)
[2018-12-12] MEDS: SEVELAMER CARBONATE 800 MG TABLET PO SCH ×2 (09:27→18:19)
[2018-12-12] MEDS: INSULIN REGULAR 100 UNIT/ML SUBCUT SCH ×4 (09:27→21:48)
[2018-12-12] MEDS: CALCITRIOL 0.5 MCG CAPSULE PO SCH (11:39)
[2018-12-12] MEDS: ATORVASTATIN 40 MG TABLET PO SCH (21:47)
[2018-12-12] MEDS: DOXAZOSIN 1 MG TABLET PO SCH (21:47)
[2018-12-13] MEDS: cefTRIAXone 1,000 MG VIAL INTRAPERIT SCH (01:22)
[2018-12-13 05:19] LABS: Basophils % 0.2 % (0.0-0.8); Eosinophils # 0.3 10*3/uL (0.0-0.87); Eosinophils % 2.7 % (0.00-10.9); Hematocrit 36.2 VOL% (35.7-47.0); Hemoglobin 11.4 GM/DL (12.0-16.0); Immature Granulocytes % 0.3 %; Immature Granulocytes Absolute 0.03 #; Lymphocytes % 10.9 % (21.3-54.2); Mean Corpuscular HGB Conc 31.5 GM/DL (32-36); Mean Corpuscular Volume 79.2 FL (87-102); Mean Platelet Volume 9.9 FL (9.6-12.0); Monocytes % 7.9 % (1.7-12.7); Platelet Count 329 T/CUMM (130-400); Red Blood Count 4.57 MC/CUMM (3.8-5.5); Red Cell Distribution Width 17.9 % (9.3-17.3); White Blood Count 9.5 T/CUMM (4-12)
[2018-12-13 05:58] LABS: Calcium 8.3 MG/DL (8.5-10.1); Osmolality,Calculated 280.4 MOS/KG (273-304)
[2018-12-13] MEDS ORDERED: FAMOTIDINE 20 MG TABLET PO ONE (06:00)
[2018-12-13 06:08] LABS: Eosinophils 3 % (0-10); Hypochromasia 2+; Lymphocytes 8 % (20-55); Microcytosis 1+; Segmented Neutrophils 82 % (50-85); Total Cells Counted 100
[2018-12-13 06:09] LABS: Ovalocytes Few; Platelet Estimate Normal; Target Cells Slight
[2018-12-13] MEDS ORDERED: LIDOCAINE 1%/EPI INJ 20 ML VIAL ONE (06:28)
[2018-12-13] MEDS ORDERED: BUPIVACAINE MPF 0.25% 30 ML VIAL ONE (06:28)
[2018-12-13] MEDS ORDERED: HEPARIN 5,000 UNIT/1 ML VIAL ONE (06:28)
[2018-12-13] MEDS ORDERED: VANCOMYCIN INJ 1,500 MG in SODIUM CHLORIDE 0.9% 500 ML IV ONE (07:00)
[2018-12-13] MEDS: LEVOTHYROXINE 75 MCG TABLET PO SCH (07:04)
[2018-12-13] MEDS ORDERED: MEPERIDINE 25 MG/1 ML VIAL IV PRN (07:23)
[2018-12-13] MEDS ORDERED: PROMETHAZINE INJ 25 MG in SODIUM CHLORIDE 0.9% 50 ML IV PRN (07:23)
[2018-12-13] MEDS ORDERED: diphenhydrAMINE 50 MG/1 ML VIAL IV PRN (07:23)
[2018-12-13] MEDS ORDERED: ONDANSETRON 4 MG/2 ML VIAL IV PRN (07:23)
[2018-12-13] MEDS: INSULIN REGULAR 100 UNIT/ML SUBCUT SCH ×4 (09:39→20:56)
[2018-12-13] MEDS: PANTOPRAZOLE 40 MG TABLET PO SCH (09:41)
[2018-12-13] MEDS: GABAPENTIN 300 MG CAPSULE PO SCH ×3 (09:41→20:53)
[2018-12-13] MEDS: amLODIPine 10 MG TABLET PO SCH (09:41)
[2018-12-13] MEDS: SEVELAMER CARBONATE 800 MG TABLET PO SCH ×2 (09:41→16:45)
[2018-12-13] MEDS: POTASSIUM CHLORIDE 10 MEQ TABLET PO SCH (09:41)
[2018-12-13] MEDS: carvediloL 12.5 MG TABLET PO SCH ×2 (09:41→20:53)
[2018-12-13] MEDS ORDERED: TISSUE ADHESIVE 1 EACH APPLICATOR TOP ONE (09:44)
[2018-12-13] MEDS: CALCITRIOL 0.5 MCG CAPSULE PO SCH (09:44)
[2018-12-13] MEDS ORDERED: LIDOCAINE 2% 5 ML VIAL ONE (11:31)
[2018-12-13] MEDS ORDERED: fentaNYL 100 MCG/2 ML VIAL ONE (11:31)
[2018-12-13] MEDS ORDERED: MIDAZOLAM 2 MG/2 ML VIAL ONE (11:31)
[2018-12-13] MEDS ORDERED: PROPOFOL 200 MG/20 ML VIAL IV ONE (11:31)
[2018-12-13] MEDS ORDERED: KETAMINE 500 MG/10 ML VIAL ONE (11:32)
[2018-12-13] MEDS ORDERED: MAGNESIUM SULFATE 1 GM/2 ML VIAL IM ONE (12:00)
[2018-12-13] MEDS: MORPHINE 4 MG/1 ML VIAL IV PRN (12:48)
[2018-12-13] MEDS: INSULIN NPH 100 UNIT/ML SUBCUT SCH (16:43)
[2018-12-13] MEDS: ACETAMINOPHEN 325 MG TABLET PO PRN (16:45)
[2018-12-13] MEDS: ATORVASTATIN 40 MG TABLET PO SCH (20:53)
[2018-12-13] MEDS: DOXAZOSIN 1 MG TABLET PO SCH (20:53)
[2018-12-13] MEDS: BISACODYL 5 MG TABLET PO PRN (20:55)
[2018-12-14] MEDS: ACETAMINOPHEN 325 MG TABLET PO PRN ×2 (01:26→16:33)
[2018-12-14] MEDS: LEVOTHYROXINE 75 MCG TABLET PO SCH (05:34)
[2018-12-14 05:37] LABS: Calcium 8.1 MG/DL (8.5-10.1); Osmolality,Calculated 282.8 MOS/KG (273-304)
[2018-12-14 05:37] LABS: Basophils % 0.2 % (0.0-0.8); Eosinophils # 0.2 10*3/uL (0.0-0.87); Eosinophils % 2.5 % (0.00-10.9); Hemoglobin 10.5 GM/DL (12.0-16.0); Immature Granulocytes % 0.6 %; Immature Granulocytes Absolute 0.05 #; Lymphocytes % 11.3 % (21.3-54.2); Mean Corpuscular HGB Conc 31.8 GM/DL (32-36); Mean Corpuscular Volume 79.3 FL (87-102); Mean Platelet Volume 9.2 FL (9.6-12.0); Monocytes % 8.6 % (1.7-12.7); Neutrophils % 76.8 % (38.7-73.9); Platelet Count 324 T/CUMM (130-400); Red Blood Count 4.16 MC/CUMM (3.8-5.5); White Blood Count 9.1 T/CUMM (4-12)
[2018-12-14] MEDS: INSULIN NPH 100 UNIT/ML SUBCUT SCH ×2 (08:38→16:28)
[2018-12-14] MEDS: INSULIN REGULAR 100 UNIT/ML SUBCUT SCH ×4 (08:38→21:10)
[2018-12-14] MEDS: amLODIPine 10 MG TABLET PO SCH (08:39)
[2018-12-14] MEDS: POTASSIUM CHLORIDE 10 MEQ TABLET PO SCH (08:39)
[2018-12-14] MEDS: BISACODYL 5 MG TABLET PO PRN ×2 (08:39→11:54)
[2018-12-14] MEDS: PANTOPRAZOLE 40 MG TABLET PO SCH (08:39)
[2018-12-14] MEDS: GABAPENTIN 300 MG CAPSULE PO SCH ×3 (08:39→21:09)
[2018-12-14] MEDS: SEVELAMER CARBONATE 800 MG TABLET PO SCH ×2 (08:40→16:30)
[2018-12-14] MEDS: carvediloL 12.5 MG TABLET PO SCH ×2 (08:40→21:09)
[2018-12-14] MEDS: CALCITRIOL 0.5 MCG CAPSULE PO SCH (10:12)
[2018-12-14] MEDS: ATORVASTATIN 40 MG TABLET PO SCH (21:09)
[2018-12-14] MEDS: DOXAZOSIN 1 MG TABLET PO SCH (21:09)
[2018-12-14] MEDS ORDERED: BISACODYL 10 MG SUPP RECTAL PRN (23:08)
[2018-12-15] MEDS: LEVOTHYROXINE 75 MCG TABLET PO SCH (06:22)
[2018-12-15 06:47] LABS: Calcium 7.9 MG/DL (8.5-10.1); Osmolality,Calculated 282.8 MOS/KG (273-304)
[2018-12-15] MEDS: PANTOPRAZOLE 40 MG TABLET PO SCH (08:39)
[2018-12-15] MEDS: GABAPENTIN 300 MG CAPSULE PO SCH ×3 (08:39→21:01)
[2018-12-15] MEDS: CALCITRIOL 0.5 MCG CAPSULE PO SCH (08:39)
[2018-12-15] MEDS: SEVELAMER CARBONATE 800 MG TABLET PO SCH ×2 (08:39→17:42)
[2018-12-15] MEDS: carvediloL 12.5 MG TABLET PO SCH ×2 (08:39→21:01)
[2018-12-15] MEDS: amLODIPine 10 MG TABLET PO SCH (08:39)
[2018-12-15] MEDS: POTASSIUM CHLORIDE 10 MEQ TABLET PO SCH (08:40)
[2018-12-15 09:38] LABS: Hepatitis B Core IgM Quant 0.08 Index; Hepatitis B Surface Ag Quant < 0.10 Index; Hepatitis B Surface Ag Result Negative (Negative); Hepatitis C Virus Ab Quant < 0.02 Index; Hepatitis C Virus Ab Result Negative (Negative)
[2018-12-15] MEDS: INSULIN NPH 100 UNIT/ML SUBCUT SCH ×2 (09:47→17:43)
[2018-12-15] MEDS: INSULIN REGULAR 100 UNIT/ML SUBCUT SCH ×4 (09:47→21:04)
[2018-12-15] MEDS ORDERED: HEPARIN 10,000 UNIT/10 ML VIAL IV PRN (10:54)
[2018-12-15] MEDS ORDERED: HEPARIN 10,000 UNIT/10 ML VIAL IV SCH (11:30)
[2018-12-15] MEDS: MORPHINE 4 MG/1 ML VIAL IV PRN ×2 (15:37→18:12)
[2018-12-15 16:57] LABS: Calcium 8.2 MG/DL (8.5-10.1); Osmolality,Calculated 283.7 MOS/KG (273-304)
[2018-12-15] MEDS: cefTRIAXone 2,000 MG in SYRINGE 1 EACH IV SCH (17:45)
[2018-12-15] MEDS ORDERED: NITROGLYCERIN SL 0.4 MG TABLET SL ONE (18:07)
[2018-12-15] MEDS: DOXAZOSIN 1 MG TABLET PO SCH (21:01)
[2018-12-15] MEDS: ATORVASTATIN 40 MG TABLET PO SCH (21:01)
[2018-12-16 06:36] LABS: Basophils % 0.3 % (0.0-0.8); Eosinophils # 0.2 10*3/uL (0.0-0.87); Eosinophils % 2.4 % (0.00-10.9); Hematocrit 36.3 VOL% (35.7-47.0); Immature Granulocytes % 0.7 %; Immature Granulocytes Absolute 0.05 #; Lymphocytes # 1.1 10*3/uL (1.4-4.0); Lymphocytes % 14.1 % (21.3-54.2); Mean Corpuscular HGB Conc 30.3 GM/DL (32-36); Mean Platelet Volume 9.4 FL (9.6-12.0); Monocytes % 8.2 % (1.7-12.7); Neutrophils % 74.3 % (38.7-73.9); Platelet Count 376 T/CUMM (130-400); Red Blood Count 4.48 MC/CUMM (3.8-5.5); Red Cell Distribution Width 18.5 % (9.3-17.3); White Blood Count 7.5 T/CUMM (4-12)
[2018-12-16] MEDS: LEVOTHYROXINE 75 MCG TABLET PO SCH (06:40)
[2018-12-16 06:56] LABS: Calcium 8.5 MG/DL (8.5-10.1); Osmolality,Calculated 284.5 MOS/KG (273-304)
[2018-12-16] MEDS: amLODIPine 10 MG TABLET PO SCH (09:52)
[2018-12-16] MEDS: CALCITRIOL 0.5 MCG CAPSULE PO SCH (09:52)
[2018-12-16] MEDS: GABAPENTIN 300 MG CAPSULE PO SCH ×3 (09:52→20:23)
[2018-12-16] MEDS: POTASSIUM CHLORIDE 10 MEQ TABLET PO SCH (09:53)
[2018-12-16] MEDS: PANTOPRAZOLE 40 MG TABLET PO SCH (09:53)
[2018-12-16] MEDS: SEVELAMER CARBONATE 800 MG TABLET PO SCH ×2 (09:53→17:31)
[2018-12-16] MEDS: carvediloL 12.5 MG TABLET PO SCH ×2 (09:53→20:23)
[2018-12-16] MEDS: INSULIN REGULAR 100 UNIT/ML SUBCUT SCH ×4 (09:55→22:39)
[2018-12-16] MEDS: INSULIN NPH 100 UNIT/ML SUBCUT SCH ×2 (09:55→17:32)
[2018-12-16] MEDS: ACETAMINOPHEN 325 MG TABLET PO PRN (15:27)
[2018-12-16] MEDS: BISACODYL 5 MG TABLET PO PRN (15:28)
[2018-12-16] MEDS: cefTRIAXone 2,000 MG in SYRINGE 1 EACH IV SCH (17:34)
[2018-12-16] MEDS: ATORVASTATIN 40 MG TABLET PO SCH (20:23)
[2018-12-16] MEDS: DOXAZOSIN 1 MG TABLET PO SCH (20:24)
[2018-12-17] MEDS: LEVOTHYROXINE 75 MCG TABLET PO SCH (06:30)
[2018-12-17] MEDS: GABAPENTIN 300 MG CAPSULE PO SCH (08:19)
[2018-12-17] MEDS: SEVELAMER CARBONATE 800 MG TABLET PO SCH (08:19)
[2018-12-17] MEDS: carvediloL 12.5 MG TABLET PO SCH (08:20)
[2018-12-17] MEDS: POTASSIUM CHLORIDE 10 MEQ TABLET PO SCH (08:20)
[2018-12-17] MEDS: amLODIPine 10 MG TABLET PO SCH (08:20)
[2018-12-17] MEDS: INSULIN NPH 100 UNIT/ML SUBCUT SCH (08:20)
[2018-12-17] MEDS: PANTOPRAZOLE 40 MG TABLET PO SCH (08:20)
[2018-12-17] MEDS: INSULIN REGULAR 100 UNIT/ML SUBCUT SCH ×2 (08:21→12:54)
[2018-12-17] MEDS: CALCITRIOL 0.5 MCG CAPSULE PO SCH (08:22)
[2018-12-17 12:55] VITALS: BP 142/58
== END 2018-12-17 15:04 | disposition home or self-care (01) | DRG 907 ==
LOC: EDBD → EDUNIT# → N.ED 17:09 → SUATTDRO 19:37 → N.EDINP 19:37 → N.2E 20:25
PROVIDERS: ADMIT Emergency Medicine; ATTEND Internal Medicine

== ENCOUNTER 2020-02-21 20:32 | Observation (INO) ==
[2020-02-21] MEDS ORDERED: ONDANSETRON 4 MG/2 ML VIAL IV STA (21:11)
[2020-02-21] MEDS ORDERED: FUROSEMIDE 100 MG/10 ML VIAL IV STA (21:11)
[2020-02-21] MEDS ORDERED: MORPHINE 4 MG/1 ML VIAL IV STA (21:11)
[2020-02-21 21:46] LABS: Basophils % 0.3 % (0.0-0.8); Eosinophils # 0.4 10*3/uL (0.0-0.87); Eosinophils % 3.9 % (0.00-10.9); Hematocrit 26.1 VOL% (35.7-47.0); Hemoglobin 8.1 GM/DL (12.0-16.0); Immature Granulocytes % 0.4 %; Immature Granulocytes Absolute 0.04 #; Lymphocytes # 1.3 10*3/uL (1.4-4.0); Lymphocytes % 12.1 % (21.3-54.2); Mean Corpuscular Volume 82.9 FL (87-102); Mean Platelet Volume 9.5 FL (9.6-12.0); Monocytes % 4.8 % (1.7-12.7); Neutrophils % 78.5 % (38.7-73.9); Platelet Count 233 T/CUMM (130-400); Red Blood Count 3.15 MC/CUMM (3.8-5.5); Red Cell Distribution Width 19.3 % (9.3-17.3); White Blood Count 10.7 T/CUMM (4-12)
[2020-02-21 21:57] LABS: PT Patient Result 11.2 SECS (9.8-11.9)
[2020-02-21 22:15] LABS: Alanine Aminotransferase 11 U/L (13-56); Albumin 3.3 G/DL (3.4-5.0); Alkaline Phosphatase 103 U/L (45-117); Aspartate Amino Transferase 8 U/L (0-37); Bilirubin,Total < 0.39 MG/DL (0.2-1.0); Blood Urea Nitrogen 43 MG/DL (7-18); Calcium 7.9 MG/DL (8.5-10.1); Estimated Glom Filtration Rate 13 ML/MIN; Glucose 120 MG/DL (74-106); Total Protein 8.2 G/DL (6.4-8.3)
[2020-02-21] MEDS ORDERED: MORPHINE 4 MG/1 ML VIAL IV PRN (23:40)
[2020-02-21] MEDS ORDERED: ONDANSETRON 4 MG/2 ML VIAL IV PRN (23:40)
[2020-02-21] MEDS ORDERED: GLUCAGON 1 MG VIAL IM PRN (23:40)
[2020-02-21] MEDS ORDERED: DEXTROSE 50% 25 GM/50 ML VIAL IV PRN ×2 (23:40)
[2020-02-22] MEDS ORDERED: hydrALAZINE 20 MG/1 ML VIAL IV PRN (00:29)
[2020-02-22] MEDS: LEVOTHYROXINE 75 MCG TABLET PO SCH (05:35)
[2020-02-22 07:09] LABS: Basophils % 0.3 % (0.0-0.8); Eosinophils # 0.4 10*3/uL (0.0-0.87); Eosinophils % 4.3 % (0.00-10.9); Hematocrit 26.7 VOL% (35.7-47.0); Hemoglobin 8.3 GM/DL (12.0-16.0); Immature Granulocytes % 0.5 %; Immature Granulocytes Absolute 0.04 #; Lymphocytes # 0.9 10*3/uL (1.4-4.0); Lymphocytes % 10.5 % (21.3-54.2); Mean Corpuscular HGB Conc 31.1 GM/DL (32-36); Mean Corpuscular Volume 82.9 FL (87-102); Mean Platelet Volume 9.7 FL (9.6-12.0); Monocytes % 4.4 % (1.7-12.7); Platelet Count 239 T/CUMM (130-400); Red Blood Count 3.22 MC/CUMM (3.8-5.5); Red Cell Distribution Width 19.1 % (9.3-17.3); White Blood Count 8.8 T/CUMM (4-12)
[2020-02-22] MEDS: INSULIN REGULAR 100 UNIT/ML SUBCUT SCH ×4 (07:15→20:35)
[2020-02-22 07:37] LABS: Alanine Aminotransferase 10 U/L (13-56); Albumin 3.1 G/DL (3.4-5.0); Alkaline Phosphatase 94 U/L (45-117); Aspartate Amino Transferase 12 U/L (0-37); Bilirubin,Total < 0.39 MG/DL (0.2-1.0); Blood Urea Nitrogen 44 MG/DL (7-18); Estimated Glom Filtration Rate 14 ML/MIN; Glucose 93 MG/DL (74-106); Osmolality,Calculated 293.1 MOS/KG (273-304); Total Protein 8.1 G/DL (6.4-8.3)
[2020-02-22] MEDS ORDERED: DILTIAZEM CD 120 MG CAPSULE PO SCH ×2 (09:00→21:00)
[2020-02-22] MEDS: ACETAMINOPHEN 325 MG TABLET PO PRN ×2 (09:59→19:18)
[2020-02-22] MEDS: SEVELAMER CARBONATE 800 MG TABLET PO SCH ×3 (10:02→17:21)
[2020-02-22] MEDS: GABAPENTIN 300 MG CAPSULE PO SCH ×3 (10:02→20:36)
[2020-02-22] MEDS: ASPIRIN EC 81 MG TABLET PO SCH (10:02)
[2020-02-22] MEDS: ISOSORBIDE DINITRATE 20 MG TABLET PO SCH ×3 (10:02→20:36)
[2020-02-22] MEDS: CHOLECALCIFEROL 400 UNIT TABLET PO SCH (10:03)
[2020-02-22] MEDS: carvediloL 25 MG TABLET PO SCH ×2 (10:03→20:36)
[2020-02-22] MEDS: PANTOPRAZOLE 40 MG TABLET PO SCH (10:03)
[2020-02-22] MEDS: ENOXAPARIN 30 MG/0.3 ML SYRINGE SUBCUT SCH (10:04)
[2020-02-22] MEDS ORDERED: EPOETIN ALFA-EPBX 10,000 UNIT/ML VIAL IV PRN (12:45)
[2020-02-22] MEDS: FUROSEMIDE 40 MG/4 ML VIAL IV SCH (17:21)
[2020-02-22] MEDS ORDERED: DOXAZOSIN 1 MG TABLET PO SCH (21:00)
[2020-02-22] MEDS ORDERED: ATORVASTATIN 40 MG TABLET PO SCH (21:00)
[2020-02-23 05:22] LABS: Basophils % 0.6 % (0.0-0.8); Eosinophils # 0.4 10*3/uL (0.0-0.87); Eosinophils % 5.8 % (0.00-10.9); Hematocrit 26.4 VOL% (35.7-47.0); Hemoglobin 8.2 GM/DL (12.0-16.0); Immature Granulocytes % 0.3 %; Immature Granulocytes Absolute 0.02 #; Lymphocytes # 1.3 10*3/uL (1.4-4.0); Lymphocytes % 18.4 % (21.3-54.2); Mean Corpuscular HGB Conc 31.1 GM/DL (32-36); Monocytes % 5.8 % (1.7-12.7); Neutrophils % 69.1 % (38.7-73.9); Platelet Count 227 T/CUMM (130-400); Red Blood Count 3.18 MC/CUMM (3.8-5.5); White Blood Count 6.9 T/CUMM (4-12)
[2020-02-23 05:35] LABS: Calcium 8.4 MG/DL (8.5-10.1); Osmolality,Calculated 284.8 MOS/KG (273-304)
[2020-02-23] MEDS: LEVOTHYROXINE 75 MCG TABLET PO SCH (06:12)
[2020-02-23] MEDS: carvediloL 25 MG TABLET PO SCH (09:00)
[2020-02-23] MEDS ORDERED: DILTIAZEM CD 120 MG CAPSULE PO SCH (09:00)
[2020-02-23] MEDS: SEVELAMER CARBONATE 800 MG TABLET PO SCH (09:00)
[2020-02-23] MEDS: PANTOPRAZOLE 40 MG TABLET PO SCH (09:00)
[2020-02-23] MEDS: ASPIRIN EC 81 MG TABLET PO SCH (09:00)
[2020-02-23] MEDS: CHOLECALCIFEROL 400 UNIT TABLET PO SCH (09:00)
[2020-02-23] MEDS: GABAPENTIN 300 MG CAPSULE PO SCH (09:00)
[2020-02-23] MEDS: ISOSORBIDE DINITRATE 20 MG TABLET PO SCH (09:00)
[2020-02-23] MEDS: INSULIN REGULAR 100 UNIT/ML SUBCUT SCH (09:01)
[2020-02-23] MEDS: FUROSEMIDE 40 MG/4 ML VIAL IV SCH (09:01)
[2020-02-23] MEDS: ENOXAPARIN 30 MG/0.3 ML SYRINGE SUBCUT SCH (09:04)
[2020-02-23 11:25] VITALS: BP 147/48
== END 2020-02-23 12:51 | disposition home or self-care (01) ==
LOC: EDUNIT# → EDBD → N.EDINP 20:32 → N.ED 20:32 → N.3E 02-22 01:10
PROVIDERS: ADMIT Internal Medicine; ATTEND Internal Medicine

== ENCOUNTER 2020-05-02 20:54 | Observation (INO) ==
[2020-05-02] MEDS ORDERED: MORPHINE 4 MG/1 ML VIAL IV STA (21:37)
[2020-05-02] MEDS ORDERED: ASPIRIN 325 MG TABLET PO STA (21:37)
[2020-05-02] MEDS ORDERED: ALUM/MAG/SIMETH/LIDO VISC 1:1 30 ML BOTTLE PO STA (21:37)
[2020-05-02] MEDS ORDERED: ONDANSETRON 4 MG/2 ML VIAL IV STA (21:37)
[2020-05-02 21:44] LABS: Basophils # 0.1 10*3/uL (0.0-0.2); Basophils % 0.6 % (0.0-0.8); Eosinophils # 0.2 10*3/uL (0.0-0.87); Eosinophils % 2.4 % (0.00-10.9); Hematocrit 38.8 VOL% (35.7-47.0); Hemoglobin 11.7 GM/DL (12.0-16.0); Immature Granulocytes % 0.5 %; Immature Granulocytes Absolute 0.04 #; Mean Corpuscular HGB Conc 30.2 GM/DL (32-36); Mean Corpuscular Volume 86.6 FL (87-102); Mean Platelet Volume 10.3 FL (9.6-12.0); Monocytes % 7.8 % (1.7-12.7); Neutrophils % 65.7 % (38.7-73.9); Platelet Count 261 T/CUMM (130-400); Red Blood Count 4.48 MC/CUMM (3.8-5.5); White Blood Count 8.9 T/CUMM (4-12)
[2020-05-02 21:52] LABS: PT Patient Result 11.1 SECS (9.8-11.9)
[2020-05-02 21:57] LABS: Alanine Aminotransferase 16 U/L (13-56); Albumin 3.7 G/DL (3.4-5.0); Alkaline Phosphatase 86 U/L (45-117); Aspartate Amino Transferase 15 U/L (0-37); Bilirubin,Total < 0.39 MG/DL (0.2-1.0); Blood Urea Nitrogen 32 MG/DL (7-18); Calcium 9.2 MG/DL (8.5-10.1); Carbon Dioxide 32 MMOL/L (21-32); Estimated Glom Filtration Rate 14 ML/MIN; Glucose 218 MG/DL (74-106); Osmolality,Calculated 286.8 MOS/KG (273-304); Potassium 3.8 MMOL/L (3.5-5.1); Sodium 137 MMOL/L (136-145); Total Protein 8.2 G/DL (6.4-8.2)
[2020-05-02 22:06] LABS: Free T4 (Free Thyroxine) 0.89 NG/DL (0.76-1.46); Thyroid Stimulating Hormone 1.76 uIU/ml (0.358-3.74)
[2020-05-03] MEDS ORDERED: DEXTROSE 50% 25 GM/50 ML VIAL IV PRN (00:01)
[2020-05-03] MEDS ORDERED: ACETAMINOPHEN 325 MG TABLET PO PRN (00:01)
[2020-05-03] MEDS ORDERED: hydrALAZINE 20 MG/1 ML VIAL IV PRN (00:01)
[2020-05-03] MEDS ORDERED: GLUCAGON 1 MG VIAL IM PRN (00:01)
[2020-05-03] MEDS ORDERED: NITROGLYCERIN SL 0.4 MG TABLET SL PRN (00:21)
[2020-05-03] MEDS ORDERED: MORPHINE 4 MG/1 ML VIAL IV PRN (00:21)
[2020-05-03 01:51] LABS: Calcium 9.5 MG/DL (8.5-10.1); Osmolality,Calculated 282.1 MOS/KG (273-304); Potassium 4.1 MMOL/L (3.5-5.1); Risk Ratio 2.85; VLDL CHOLESTEROL 32.6 MG/DL
[2020-05-03] MEDS: ONDANSETRON 4 MG/2 ML VIAL IV PRN ×2 (04:31→17:49)
[2020-05-03 04:48] LABS: Basophils % 0.4 % (0.0-0.8); Eosinophils # 0.2 10*3/uL (0.0-0.87); Eosinophils % 3.1 % (0.00-10.9); Hematocrit 38.3 VOL% (35.7-47.0); Immature Granulocytes % 0.3 %; Immature Granulocytes Absolute 0.02 #; Lymphocytes # 1.8 10*3/uL (1.4-4.0); Lymphocytes % 26.4 % (21.3-54.2); Mean Corpuscular HGB Conc 31.3 GM/DL (32-36); Mean Corpuscular Volume 85.5 FL (87-102); Mean Platelet Volume 9.9 FL (9.6-12.0); Monocytes % 10.9 % (1.7-12.7); Neutrophils % 58.9 % (38.7-73.9); Platelet Count 231 T/CUMM (130-400); Red Blood Count 4.48 MC/CUMM (3.8-5.5); Red Cell Distribution Width 20.9 % (9.3-17.3); White Blood Count 6.8 T/CUMM (4-12)
[2020-05-03] MEDS ORDERED: INFLUENZA VIRUS VACCINE 0.5 ML SYRINGE IM ONE (08:49)
[2020-05-03] MEDS ORDERED: PANTOPRAZOLE 40 MG TABLET PO SCH (09:00)
[2020-05-03] MEDS: INSULIN LISPRO 100 UNIT/ML SUBCUT SCH ×4 (09:46→21:48)
[2020-05-03] MEDS: DOCUSATE SODIUM 100 MG CAPSULE PO PRN ×2 (09:48→17:49)
[2020-05-03] MEDS ORDERED: ASPIRIN EC 81 MG TABLET PO SCH (11:30)
[2020-05-03] MEDS: carvediloL 25 MG TABLET PO SCH ×2 (12:28→21:49)
[2020-05-03] MEDS: ISOSORBIDE DINITRATE 20 MG TABLET PO SCH ×2 (15:24→21:48)
[2020-05-03] MEDS ORDERED: DOXAZOSIN 1 MG TABLET PO SCH (21:00)
[2020-05-03] MEDS ORDERED: ATORVASTATIN 40 MG TABLET PO SCH (21:00)
[2020-05-04] MEDS: ISOSORBIDE DINITRATE 20 MG TABLET PO SCH (12:33)
[2020-05-04] MEDS ORDERED: LACTULOSE 20 GM/30 ML UDCUP PO ONE (12:52)
[2020-05-04] MEDS ORDERED: DOCUSATE SODIUM 100 MG CAPSULE PO SCH (13:00)
[2020-05-04] MEDS ORDERED: POLYETHYLENE GLYCOL POWDER 17 GM PACK PO SCH (13:00)
[2020-05-04 16:26] VITALS: BP 156/59
== END 2020-05-04 17:00 | disposition home or self-care (01) ==
LOC: EDBD → EDUNIT# → N.ED 20:54 → N.EDINP 20:54 → N.4E 05-03 07:51
PROVIDERS: ADMIT Family Medicine; ATTEND Family Medicine

== ENCOUNTER 2020-06-13 17:21 | Observation (INO) ==
[2020-06-13 20:12] LABS: Basophils # 0.1 10*3/uL (0.0-0.2); Basophils % 0.6 % (0.0-0.8); Eosinophils # 0.3 10*3/uL (0.0-0.87); Eosinophils % 3.5 % (0.00-10.9); Hematocrit 35.9 VOL% (35.7-47.0); Hemoglobin 11.2 GM/DL (12.0-16.0); Immature Granulocytes % 0.6 %; Immature Granulocytes Absolute 0.05 #; Lymphocytes # 1.6 10*3/uL (1.4-4.0); Lymphocytes % 18.1 % (21.3-54.2); Mean Corpuscular HGB Conc 31.2 GM/DL (32-36); Mean Corpuscular Volume 85.5 FL (87-102); Mean Platelet Volume 9.9 FL (9.6-12.0); Monocytes % 6.4 % (1.7-12.7); Neutrophils % 70.8 % (38.7-73.9); Platelet Count 183 T/CUMM (130-400); Red Cell Distribution Width 19.1 % (9.3-17.3); White Blood Count 8.7 T/CUMM (4-12)
[2020-06-13 20:22] LABS: Troponin I < 0.015 NG/ML (0.00-0.045)
[2020-06-13 20:25] LABS: Alanine Aminotransferase 23 U/L (13-56); Albumin 3.7 G/DL (3.4-5.0); Alkaline Phosphatase 85 U/L (45-117); Aspartate Amino Transferase 13 U/L (0-37); Bilirubin,Total < 0.39 MG/DL (0.2-1.0); Blood Urea Nitrogen 46 MG/DL (7-18); Carbon Dioxide 30 MMOL/L (21-32); Estimated Glom Filtration Rate 14 ML/MIN; Glucose 231 MG/DL (74-106); Potassium 4.1 MMOL/L (3.5-5.1); Sodium 136 MMOL/L (136-145); Total Protein 8.1 G/DL (6.4-8.2)
[2020-06-13 20:36] LABS: Partial Thromboplastin Time 24.2 SECS (23.9-33.8)
[2020-06-14] MEDS: ACETAMINOPHEN 325 MG TABLET PO PRN ×2 (02:00→09:10)
[2020-06-14] MEDS ORDERED: ACETAMINOPHEN 325 MG TABLET ONE (02:06)
[2020-06-14] MEDS ORDERED: ONDANSETRON 4 MG/2 ML VIAL IV PRN (02:47)
[2020-06-14] MEDS ORDERED: GLUCAGON 1 MG VIAL IM PRN (02:47)
[2020-06-14] MEDS ORDERED: hydrALAZINE 20 MG/1 ML VIAL IV PRN (02:47)
[2020-06-14] MEDS ORDERED: DEXTROSE 50% 25 GM/50 ML VIAL IV PRN (02:47)
[2020-06-14] MEDS ORDERED: DOCUSATE SODIUM 100 MG CAPSULE PO PRN (02:47)
[2020-06-14] MEDS ORDERED: DICYCLOMINE 20 MG TABLET PO PRN (02:52)
[2020-06-14] MEDS ORDERED: LEVOTHYROXINE 75 MCG TABLET PO SCH (07:00)
[2020-06-14] MEDS: INSULIN NPH/REGULAR 70/30 100 UNIT/ML SUBCUT SCH ×2 (08:33→12:01)
[2020-06-14] MEDS: INSULIN LISPRO 100 UNIT/ML SUBCUT SCH ×2 (08:35→12:00)
[2020-06-14] MEDS ORDERED: FLUTICASONE 50 MCG NASAL SPRAY 16 GM BOTTLE BOTH NARES SCH (09:00)
[2020-06-14] MEDS ORDERED: CHOLECALCIFEROL 400 UNIT TABLET PO SCH (09:00)
[2020-06-14] MEDS ORDERED: ASPIRIN CHEW 81 MG TABLET PO SCH (09:00)
[2020-06-14] MEDS ORDERED: PANTOPRAZOLE 40 MG TABLET PO SCH (09:00)
[2020-06-14] MEDS ORDERED: MONTELUKAST 10 MG TABLET PO SCH (09:00)
[2020-06-14] MEDS ORDERED: carvediloL 12.5 MG TABLET PO SCH (09:00)
[2020-06-14] MEDS ORDERED: DOXAZOSIN 1 MG TABLET PO SCH (09:00)
[2020-06-14 09:39] VITALS: BP 160/54
[2020-06-14] MEDS: GABAPENTIN 300 MG CAPSULE PO SCH ×2 (10:00→16:54)
[2020-06-14] MEDS: SEVELAMER CARBONATE 800 MG TABLET PO SCH ×2 (11:04→12:01)
[2020-06-14] MEDS: ISOSORBIDE DINITRATE 20 MG TABLET PO SCH ×2 (11:10→16:54)
[2020-06-14] MEDS ORDERED: ATORVASTATIN 40 MG TABLET PO SCH (21:00)
[2020-06-14] MEDS ORDERED: PRIMIDONE 50 MG TABLET PO SCH (21:00)
[2020-06-14] MEDS ORDERED: INSULIN NPH/REGULAR 70/30 100 UNIT/ML SUBCUT SCH (21:00)
== END 2020-06-14 17:50 | disposition home or self-care (01) ==
LOC: EDBD → EDUNIT# → N.ED 17:21 → N.EDINP 17:21
PROVIDERS: ADMIT Internal Medicine; ATTEND Internal Medicine